=== PATIENT | female | born 1945 | race Caucasian/White ===

== ENCOUNTER 2019-07-23 08:53 | Observation (INO) | payer OTHER ==
[2019-07-23 09:43] LABS: Absolute Lymphocytes (CBC) 2.1 K/uL (0.7-4.9); Basophils % 0.6 % (0-1.3); Hematocrit 41.1 % (36.0-45.0); Lymphocytes % 34.1 % (15.3-44.8); MPV 7.6 fL (7.6-11.3)
--- NOTE | 2019-07-23 09:46 | RAD REPORT ---
EXAM DESCRIPTION: RAD - Hand Right 3 View - 07/23/2019 9:32 am CLINICAL HISTORY: Right hand pain FINDINGS: No fracture or dislocation is seen. Soft tissue swelling involves the second digit. Two small densities adjacent to the second DIP joint appear to be bony or calcific and likely are chr onic.
[2019-07-23] MEDS ORDERED: CEFAZOLIN/SWI 1gm 1 GM/10 ML SYR ONE (09:47)
[2019-07-23 09:48] LABS: Protime INR 0.92
--- NOTE | 2019-07-23 10:03 | EDPHYS ---
Physician Documentation [facility] Name: Sariah Castillo Age: 74 yrs Sex: Female : 1945 Arrival Date: 07/23/2019 Time: 08:55 Bed 7 Private MD: Loki Ivan ED Physician Akira Matthews HPI: 07/22 09:38 This 74 yrs old Female presents to ER via Ambulatory with complaints of jr8 Finger Swelling. 09:38 The complaints affect the DIP of right index finger and PIP of right index finger. jr8 Context: The problem was sustained at home. Onset: The symptoms/episode began/occurred suddenly, 2 day(s) ago. Modifying factors: The symptoms are alleviated by nothing, the symptoms are aggravated by movement. Associated signs and symptoms: The patient has no apparent associated signs or symptoms. Severity of symptoms: At their worst the symptoms were moderate, in the emergency department the symptoms are unchanged. The patient has not experienced similar symptoms in the past. The patient has not recently seen a physician. Patient stated that she was gardening. Noticed small red sore spot on finger as if something poked her but does not remember any thorns getting her. Stated that now it is very swollen. Tried to wait and saw PCP today. After seeing her called hand surgery and was told to come to ED for evaluation . Historical: - Allergies: 09:10 Aspirin; ss 10:13 medication given in general anesthesia made her vomit, needs to be premedicated; sv - PSHx: 10:13 cataract; vocal cords; sv - Immunization history:: Adult Immunizations up to date. - Social history:: Smoking status: Patient denies any tobacco usage or history of. ROS: 09:38 Eyes: Negative for injury, pain, redness, and discharge, ENT: Negative for injury, jr8 pain, and discharge, Neck: Negative for injury, pain, and swelling, Cardiovascular: Negative for chest pain, palpitations, and edema, Respiratory: Negative for shortness of breath, cough, wheezing, and pleuritic chest pain, Abdomen/GI: Negative for abdominal pain, nausea, vomiting, diarrhea, and constipation, Back: Negative for injury and pain, Skin: Negative for injury, rash, and discoloration, Neuro: Negative for headache, weakness, numbness, tingling, and seizure. 09:38 MS/extremity: Positive for decreased range of motion, erythema, pain, swelling, tenderness, of the right hand. Exam: 09:34 Eyes: Pupils equal round and reactive to light, extra-ocular motions intact. Lids and jr8 lashes normal. Conjunctiva and sclera are non-icteric and not injected. Cornea within normal limits. Periorbital areas with no swelling, redness, or edema. ENT: Nares patent. No nasal discharge, no septal abnormalities noted. Tympanic membranes are normal and external auditory canals are clear. Oropharynx with no redness, swelling, or masses, exudates, or evidence of obstruction, uvula midline. Mucous membranes moist. Neck: Trachea midline, no thyromegaly or masses palpated, and no cervical lymphadenopathy. Supple, full range of motion without nuchal rigidity, or vertebral point tenderness. No Meningismus. Cardiovascular: Regular rate and rhythm with a normal S1 and S2. No gallops, murmurs, or rubs. Normal PMI, no JVD. No pulse deficits. Respiratory: Lungs have equal breath sounds bilaterally, clear to auscultation and percussion. No rales, rhonchi or wheezes noted. No increased work of breathing, no retractions or nasal flaring. Abdomen/GI: Soft, non-tender, with normal bowel sounds. No distension or tympany. No guarding or rebound. No evidence of tenderness throughout. Back: No spinal tenderness. No costovertebral tenderness. Full range of motion. Skin: Warm, dry with normal turgor. Normal color with no rashes, no lesions, and no evidence of cellulitis. Neuro: Awake and alert, GCS 15, oriented to person, place, time, and situation. Cranial nerves II-XII grossly intact. Motor strength 5/5 in all extremities. Sensory grossly intact. Cerebellar exam normal. Normal gait. 09:34 ECG was reviewed by the Attending Physician. 09:34 Musculoskeletal/extremity: Extremities: grossly normal except: noted in the 2nd digit right hand: moderate swelling, redness, and pain from tip of finger to PIP, ROM: Decreased ROM to distal finger secondary to swelling, Circulation is intact in all extremities. Sensation intact. Patient has moderate pain with passive flexion of finger against resistance . Vital Signs: 09:04 BP 145 / 84; Pulse 59; Resp 17; Temp 97.3(TE); Pulse Ox 99% on R/A; Weight 67.59 kg; ss Height 5 ft. 1 in. (154.94 cm); Pain 6/10; 13:00 BP 147 / 50; Pulse 60; Resp 16; Pulse Ox 98% ; sv 14:10 BP 138 / 63; Pulse 62; Resp 18; Pulse Ox 99% ; sv 09:04 Body Mass Index 28.15 (67.59 kg, 154.94 cm) ss MDM: 09:05 Patient medically screened. jr8 09:36 Data reviewed: vital signs, nurses notes, lab test result(s), EKG, radiologic studies, jr8 plain films. Data interpreted: Pulse oximetry: on room air is 99 %. Interpretation: normal. Counseling: I had a detailed discussion with the patient and/or guardian regarding: the historical points, exam findings, and any diagnostic results supporting the discharge/admit diagnosis, lab results, radiology results, the need for further work-up and treatment in the hospital. ED course: Dr. Brownlee contacted and saw patient. Will bring patient to OR. 07/22 09:15 Order name: CBC with Diff; Complete Time: 09:56 jr8 07/22 09:15 Order name: Basic Metabolic Panel; Complete Time: 09:56 jr8 07/22 09:15 Order name: Protime (+inr); Complete Time: 09:57 jr8 07/22 09:15 Order name: Ptt, Activated; Complete Time: 09:57 jr8 07/22 11:00 Order name: CBC with Automated Diff EDMS 07/22 11:00 Order name: CBC with Automated Diff EDMS 07/22 09:14 Order name: XRAY Hand RIGHT 3 View; Complete Time: 11:03 jr8 07/22 09:15 Order name: EKG; Complete Time: 09:15 jr8 07/22 09:15 Order name: EKG - Nurse/Tech; Complete Time: 09:47 jr8 07/22 11:00 Order name: CONS Pharmacy Consult EDMS 07/22 11:00 Order name: Consistent Carb (ADA) 1800 Shivam EDMS 07/22 11:00 Order name: Comprehensive Metabolic Panel EDMS 07/22 11:00 Order name: Comprehensive Metabolic Panel EDMS EC:34 Rate is 82 beats/min. Rhythm is regular, Normal Sinus Rhythm. QRS [place] is Normal. [place] jr8 interval is normal at 178 msec. QRS interval is normal at 82 msec. QT interval is normal at 434 msec. No Q waves. T waves are Normal. No ST changes noted. Clinical impression: Normal ECG and No evidence of ischemia. Interpreted by me. Reviewed by me. Administered Medications: 09:54 Drug: Ancef 1 grams Route: IVPB; Site: left antecubital; sv 09:59 Follow up: Response: No adverse reaction; IV Status: Completed infusion; IV Intake: 10mlsv Disposition: 17:01 Co-signature as Attending Physician, Akira Matthews MD. rn Disposition: 07/23/19 10:02 Hospitalization ordered by Trista Carpenter for Inpatient Admission. Preliminary diagnosis is Other synovitis and tenosynovitis, right hand. - Bed requested for Telemetry/MedSurg (Inpatient). - Status is Inpatient Admission. sv - Condition is Stable. - Problem is new. - Symptoms have improved. Signatures: Dispatcher [employer] Deisy Harmon RN RN sv Nieto, Roman, MD MD rn Smirch, Shelby, RN RN ss Roszak, Josh, PA PA jr8 Corrections: (The following items were deleted from the chart) 14:27 10:02 Hospitalization Ordered by Trista Carpenter MD for Inpatient Admission. Preliminary sv diagnosis is Other synovitis and tenosynovitis, right hand. Bed requested for Telemetry/MedSurg (Inpatient). Status is Inpatient Admission. Condition is Stable. Problem is new. Symptoms have improved. jr8
--- NOTE | 2019-07-23 10:03 | ER ---
Nurse's Notes [facility] Name: Sariah Castillo Age: 74 yrs Sex: Female : 1945 Arrival Date: 07/23/2019 Time: 08:55 Bed 7 Private MD: Loki Ivan Diagnosis: Other synovitis and tenosynovitis, right hand Presentation: 07/22 09:04 Chief complaint: Patient states: redness and swelling to R index finger x 1 week. Pt ss was seen by Dr. Ivan yesterday and told to go to [place] in the morning, but called her last night and said to come to the ER in the morning and have the ED staff call Dr. Brownlee. Coronavirus screen: The patient has NOT traveled to a country currently being monitored by the CDC within the last 14 days. Proceed with normal triage procedures. Ebola Screen: Patient denies exposure to infectious person. Patient denies travel to an Ebola-affected area in the 21 days before illness onset. Initial Sepsis Screen: Does the patient meet any 2 criteria? No. Patient's initial sepsis screen is negative. Does the patient have a suspected source of infection? No. Patient's initial sepsis screen is negative. Risk Assessment: Do you want to hurt yourself or someone else? Patient reports no desire to harm self or others. 09:04 Method Of Arrival: Ambulatory ss 09:04 Acuity: JAVIER 3 ss 09:21 Onset of symptoms was July 2019. sv Historical: - Allergies: 09:10 Aspirin; ss 10:13 medication given in general anesthesia made her vomit, needs to be premedicated; sv - PSHx: 10:13 cataract; vocal cords; sv - Immunization history:: Adult Immunizations up to date. - Social history:: Smoking status: Patient denies any tobacco usage or history of. Screenin:20 Abuse screen: Denies threats or abuse. Denies injuries from another. Nutritional sv screening: No deficits noted. Tuberculosis screening: No symptoms or risk factors identified. Fall Risk None identified. Assessment: 09:20 Reassessment: Xray at the bedside. sv 09:30 General: Appears in no apparent distress. comfortable, well developed, Behavior is sv calm, cooperative, appropriate for age. Pain: Complains of pain in right index finger Pain currently is 6 out of 10 on a pain scale. Quality of pain is described as pressure, tender, throbbing, Pain began about a week ago Is continuous, Current management is with abx prescribed by Dr Ivan. Neuro: Level of Consciousness is awake, alert, obeys commands, Oriented to person, place, time, situation, Moves all extremities. Gait is steady. Respiratory: Airway is patent Respiratory effort is even, unlabored, Respiratory pattern is regular, symmetrical. Derm: Skin is pink, warm \T\ dry. Musculoskeletal: Range of motion: limited in DIP of right index finger and PIP of right index finger Swelling present in dorsal aspect of distal phalanx of right index finger, dorsal aspect of middle phalanx of right index finger, palmar aspect of distal phalanx of right index finger and palmar aspect of middle phalanx of right index finger. 10:10 Reassessment: Dr Carpenter at the bedside. sv 10:33 Reassessment: Patient appears in no apparent distress at this time. No changes from sv previously documented assessment. Patient and/or family updated on plan of care and expected duration. Pain level reassessed. Patient is alert, oriented x 3, equal unlabored respirations, skin warm/dry/pink. 11:31 Reassessment: Patient appears in no apparent distress at this time. No changes from sv previously documented assessment. Patient and/or family updated on plan of care and expected duration. Pain level reassessed. Patient is alert, oriented x 3, equal unlabored respirations, skin warm/dry/pink. 13:00 Reassessment: Patient appears in no apparent distress at this time. No changes from sv previously documented assessment. Patient and/or family updated on plan of care and expected duration. Pain level reassessed. Patient is alert, oriented x 3, equal unlabored respirations, skin warm/dry/pink. 14:20 Reassessment: Patient appears in no apparent distress at this time. No changes from sv previously documented assessment. Patient and/or family updated on plan of care and expected duration. Pain level reassessed. Patient is alert, oriented x 3, equal unlabored respirations, skin warm/dry/pink. Vital Signs: 09:04 BP 145 / 84; Pulse 59; Resp 17; Temp 97.3(TE); Pulse Ox 99% on R/A; Weight 67.59 kg; ss Height 5 ft. 1 in. (154.94 cm); Pain 6/10; 13:00 BP 147 / 50; Pulse 60; Resp 16; Pulse Ox 98% ; sv 14:10 BP 138 / 63; Pulse 62; Resp 18; Pulse Ox 99% ; sv 09:04 Body Mass Index 28.15 (67.59 kg, 154.94 cm) ED Course: 08:55 Patient arrived in ED. rg4 08:55 Loki Ivan MD is Private Physician. rg4 08:57 Layo Roy PA is PHCP. jr8 08:57 Akira Matthews MD is Attending Physician. jr8 09:08 Triage completed. ss 09:10 Arm band placed on right wrist. ss 09:19 Deisy Burks, SEMAJ is Primary Nurse. sv 09:20 Patient has correct armband on for positive identification. Bed in low position. Call sv light in reach. NIBP on. 09:25 Initial lab(s) drawn, by me, sent to lab. jb1 09:33 XRAY Hand RIGHT 3 View In Process Unspecified. EDMS 09:40 EKG done, by holter technician. reviewed by Layo HAMMOND. at1 09:46 Inserted saline lock: 22 gauge in left antecubital area, using aseptic technique. Blood jb1 collected. 09:59 Trista Carpenter MD is Hospitalizing Provider. jr8 11:31 Awaiting bed assignment. sv 14:20 No provider procedures requiring assistance completed. Patient admitted, IV remains in sv place. intact. Administered Medications: 09:54 Drug: Ancef 1 grams Route: IVPB; Site: left antecubital; sv 09:59 Follow up: Response: No adverse reaction; IV Status: Completed infusion; IV Intake: 10mlsv Intake: 09:59 IV: 10ml; Total: 10ml. sv Outcome: 10:02 Decision to Hospitalize by Provider. jr8 14:20 Admitted to OR accompanied by nurse, via wheelchair, with chart. sv 14:20 Condition: stable 14:20 Instructed on the need for admit. 14:27 Patient left the ED. sv Signatures: Dispatcher [employer] EDMS Isael Goldman jb1 Deisy Burks RN RN Dionna Thao RN RN Layo Roy PA PA jr8 Kaila Mays, marketing systems analyst EKG Tat1 Noemí Sloan rg4
[2019-07-23] MEDS ORDERED: ACETAMINOPHEN 500 MG TAB PO PRN (10:45)
[2019-07-23] MEDS ORDERED: ONDANSETRON 4 MG/2 ML VIAL IV PRN ×2 (10:45→16:32)
[2019-07-23] MEDS ORDERED: NA CHLORIDE 0.9% 1,000 ML IV SCH (11:00)
[2019-07-23] MEDS: INSULIN -REGULAR HUMAN 50 UNIT/0.5 ML ML SQ SCH ×3 (11:30→20:35)
--- NOTE | 2019-07-23 12:12 | EKG ---
Test Date: 2019-07-23 Test Time: 09:33:06 Business Partner: JOLYNN MEASUREMENT RESULTS: Intervals: Rate: 82 [place]: 178 QRSD: 82 QT: 372 QTc: 434 [place]: P: 76 [place]: 178 QRS: 69 T: 65 INTERPRETIVE STATEMENTS: Normal sinus rhythm Normal ECG Compared to ECG 08/13/1996 13:43:00 No significant changes Electronically Signed On 07-23-19 12:11:25 CDT by Damon Gore
[2019-07-23] MEDS ORDERED: NA CHLORIDE 0.9% 1,000 ML ONE (14:03)
[2019-07-23] MEDS ORDERED: propofoL 200 MG/20 ML VIAL IV ONE (14:36)
[2019-07-23] MEDS ORDERED: FENTANYL CITR 100 MCG/2 ML ONE (14:36)
[2019-07-23] MEDS ORDERED: LIDOCAINE 1% MPF 5 ML VIAL ONE (14:37)
[2019-07-23] MEDS ORDERED: dexAMETHasone 4 MG/ML VIAL ONE (14:37)
[2019-07-23] MEDS ORDERED: ONDANSETRON 4 MG/2 ML VIAL ONE (14:38)
[2019-07-23] MEDS: VANCOMYCIN 1.25 GM in NA CHLORIDE 0.9% 250 ML IVPB SCH (15:21)
[2019-07-23] MEDS ORDERED: MEPERIDINE HCL 50 MG/ML IM PRN (15:28)
[2019-07-23] MEDS ORDERED: CODEINE 30MG/APAP 300MG TAB PO PRN (15:28)
[2019-07-23] MEDS: HYDROMORPHONE HCL 1 MG/ML INJ ONE ×2 (15:31→15:36)
[2019-07-23] MEDS ORDERED: HYDROMORPHONE HCL 1 MG/ML INJ ONE (15:46)
[2019-07-23 17:06] VITALS: BMI 28.1
[2019-07-23] MEDS: PROMETHAZINE INJ 25 MG/ML AMP IV PRN ×2 (18:36→22:20)
[2019-07-23] MEDS: MORPHINE 2 MG/ML SYR IV PRN (20:22)
[2019-07-23] MEDS ORDERED: ATORVASTATIN 10 MG TAB PO SCH (20:30)
[2019-07-23] MEDS: carvediloL 25 MG TAB PO SCH (20:34)
[2019-07-23] MEDS: METFORMIN ER 500 MG TAB PO SCH (20:34)
[2019-07-23] MEDS: FAMOTIDINE 20 MG TAB PO SCH (20:35)
--- NOTE | 2019-07-23 21:52 | HP ---
Date of Admission: 07/23/2019 Presenting Complaint: Right face finger pain. History Of Present Illness: Ms. Jonathan Rolle is a 74-year-old female with past medical history of hypertension, diabetes mellitus, osteoporosis, who developed pain and swelling over the r ight second digit since the last 3 days. She is unsure if she has a bite, but she did notice a full course of redness. The pain and swelling continued to worsen. She was seen by primary care braden mayo yesterday, given a shot of antibiotics as well as started on amoxicillin. She took 1 dose last nig ht. She presented to the ED today because of persistent symptoms. She denies any nausea or vomiting . She denies any fever or chills. In the ED, she was evaluated by the hand surgeon, Dr. Aung tripp d been diagnosed with presumed tenosynovitis and schedule for OR debridement. She has been admitted for possible IV antibiotics. Past Medical History: Significant for 1.Hypertension. 2.Diabetes mellitus. 3.Osteoporosis. 4.Hypothyroidism. 5.Hyperlipidemia. 6.History of spasmodic dysphonia, but she was ruled out for Parkinson disease. Past Surgical History: Unknown. Social History: Patient resides in a community with full function at baseline. No history of tobacc o, alcohol, or illicit drug use. Family History: Noncontributory in this elderly female. Home Medications: Reviewed include Coreg 25 b.i.d., pravastatin 80 daily, metformin 500 b.i.d., Synt hroid 50 mcg daily as well as multiple xbqn-zow-wzopfst medications. Review of Systems: All systems reviewed x14 were negative except as mentioned above. Allergies: SHE DEVELOPED GASTRIC UPSET WITH ASPIRIN. Physical Examination: Current vitals: Blood pressure of 126/84, respiratory rate of 17, O2 saturation 99 on room air, temp erature 97.3, pulse rate of 59. General: Middle-aged female, slightly overweight, but calm, not in any distress, low speech voice. HEENT: Head is atraumatic, normocephalic. Pupils equal, reactive to light. Neck: No JVD. No carotid bruit. Respiratory: Good air entry. No crepitation. Cardiovascular: S1, S2. Rate and rhythm regular. No murmur. GI: Abdomen full, soft, nontender. Bowel sounds positive. Rectal: Deferred. Extremities: No pedal edema. No calf tenderness. Examination of the hands shows erythema over the palmar surface of the second digit extending from the second interphalangeal joint to the pulp. Smal l area of focus in the base of the first interphalangeal joint. No nail abrasion or nail involvement noted. The patient is able to flex, but limited range of motion of the interphalangeal joint due to pain and swelling. No other involvement of any of the other digits. Neuro: Patient is alert, oriented. Cranial nerves 2 through 12 grossly intact. Laboratory Data: WBC 6.1, neutrophils 48%, hemoglobin 13, platelets 254. INR 0.9, PTT is 30. Sodiu m 142, potassium 4, bicarb 26, BUN 70, creatinine 0.8, glucose 153, calcium 8.9. X-ray of the hand s hows soft tissue swelling of the second digit of the right, but no bone involvement. Impression: 1.Right second digit distal cellulitis, rule out tenosynovitis. 2.Diabetes mellitus. 3.Hypertension, stable. Plan: 1.We will admit patient to observation. Follow plan for OR debridement by Hand Surgery today. We w ill do empirical antibiotics with Vanco, but we will discuss with hand surgeon about possibility of s witching to p.o. antibiotics and given no systemic involvement of the infection. We will resume dennis ent on insulin sliding scale as well as home dose of metformin. We will resume patient on Coreg and losartan for blood pressure control. Continue gentle IV fluid hydration with normal saline. DVT pro phylaxis with Lovenox. Presume hospital stay for less than 24-48 hours. Advanced directives, patient is full code. Total time spent in review of record, discussion, patient, and evaluation greater than 60 minutes. EO/MODL Voice ID: [id number]
[2019-07-23] MEDS ORDERED: GUAIFENESIN 600 MG SA TAB PO SCH (22:00)
--- NOTE | 2019-07-24 01:55 | OP ---
Surgeon: Hebert Brownlee MD Analytical Research Program Manager: Davon. Preoperative Diagnosis: Infected right index finger. Postoperative Diagnosis: Infected right index finger. Procedure Performed: Excision and drainage of right index finger. Anesthesia: General. Procedure In Detail: After satisfactory induction of general, the hand was prepped with Betadine scr ub, Betadine paint, dry sterile drapes applied in the usual manner. The arm was elevated, exsanguina malinda with an Esmarch. Tourniquet was inflated to 250 mmHg. Hand was placed on [place] table where th e incision was made over the volar aspect of the right index finger. Excision was proceeded down. F luid was encountered. Culture was taken for aerobes and anaerobes. Tendon sheath was not involved. The wound was irrigated and then tourniquet was released. Electrocautery was used for hemostasis. Packed with Betadine soaked quarter-inch Nu Gauze and 2 inch Nazario. Patient tolerated the procedure well and returned to Recovery. CARIDAD/CIERA Voice ID: [id number] Report ID: [id number]
[2019-07-24] MEDS ORDERED: ALENDRONATE 70 MG TAB PO SCH ×2 (06:00→09:00)
[2019-07-24] MEDS ORDERED: LEVOTHYROXINE SOD 0.05 MG TABLET PO SCH ×2 (06:00→09:00)
[2019-07-24 06:14] LABS: Absolute Lymphocytes (CBC) 1.7 K/uL (0.7-4.9); Basophils % 0.2 % (0-1.3); Hematocrit 39.8 % (36.0-45.0); Lymphocytes % 14.7 % (15.3-44.8); MPV 7.5 fL (7.6-11.3); RBC Red Blood Cell Count 4.34 M/uL (3.86-4.86)
[2019-07-24] MEDS: MORPHINE 2 MG/ML SYR IV PRN (06:16)
[2019-07-24 06:45] LABS: Albumin 3.6 g/dL (3.4-5.0); Bilirubin Total 0.6 mg/dL (0.2-1.0); Potassium 4.5 mmol/L (3.5-5.1); Protein, Total 7.1 g/dL (6.4-8.2)
[2019-07-24] MEDS: INSULIN -REGULAR HUMAN 50 UNIT/0.5 ML ML SQ SCH ×2 (07:30→11:30)
[2019-07-24] MEDS ORDERED: VITAMIN D 1000 UNIT TAB PO SCH (09:00)
[2019-07-24] MEDS: METFORMIN ER 500 MG TAB PO SCH (09:00)
[2019-07-24] MEDS ORDERED: carvediloL 25 MG TAB PO SCH (09:00)
[2019-07-24] MEDS ORDERED: LORATADINE 10 MG TAB PO SCH (09:00)
[2019-07-24] MEDS ORDERED: ENOXAPARIN 40 MG/0.4 ML SQ SCH (09:00)
[2019-07-24] MEDS: FAMOTIDINE 20 MG TAB PO SCH (09:00)
[2019-07-24] MEDS ORDERED: DOCOSAHEXANOIC AC/EPA 1000 MG PO SCH (09:00)
[2019-07-24] MEDS ORDERED: METFORMIN ER 500 MG TAB PO SCH (09:00)
[2019-07-24] MEDS ORDERED: AMLODIPINE 2.5 MG TAB PO SCH (09:00)
[2019-07-24] MEDS ORDERED: DESIPRAMINE HCL 10 MG PO SCH (09:00)
[2019-07-24] MEDS: carvediloL 25 MG TAB PO SCH (09:00)
[2019-07-24 09:13] LABS: Blood Morphology Comment NOT SEEN (NOT SEEN); Platelet Estimate ADEQ; White Blood Cell Scan OK
[2019-07-24 09:14] VITALS: BP 125/58; TEMP 98.3
--- NOTE | 2019-07-24 11:23 | P.PN ---
Subjective Date of Service: 07/24/19 Subjective: No new changes, Tolerating diet (right finger pain much improved post surgery) Physical Examination - Vital Signs Temperature: 98.3 F Blood Pressure: 125/58 Pulse: 89 Respirations: 18 Pulse Ox (%): 94 - Physical Exam General: Alert, In no apparent distress, Oriented x3 HEENT: Atraumatic, Normocephalic Neck: Supple, 2+ carotid pulse no bruit, JVD not distended Respiratory: Clear to auscultation bilaterally Cardiovascular: No edema, Normal pulses, Regular rate/rhythm, Normal S1 S2 Gastrointestinal: Normal bowel sounds, Soft and benign, Non-distended Musculoskeletal: No clubbing, No swelling Integumentary: Skin breakdown (over surgical right second digit) Neurological: Normal gait, Normal speech, Normal strength at 5/5 x4 extr Assessment & Plan Physician Review: Patient Assessed, Agree with Above Assessment and Plan Physician Review Additional Text: 1 Right second digit /Index finger cellulitis - s/p incision and drainage -c/w IV abx -will defer abx regime to hand surgery 2 DM -controlled, c/w ISSS 3 HTN -controlled Dispo-discharge over when cleared by surgery
[2019-07-24] MEDS: VANCOMYCIN 1.25 GM in NA CHLORIDE 0.9% 250 ML IVPB SCH (12:42)
--- NOTE | 2019-07-24 14:13 | P.DS ---
Admission Date: 07/23/19 Discharge Date: 07/24/19 Disposition: ROUTINE DISCHARGE Discharge Condition: GOOD Brief History of Present Illness: Patient admitted for right index finger swelling and pain with redness. She is unsure if she had any insect bite Hospital Course: On admission she was evaluated by the hand surgeon and is taking to the OR with debridement of the area. No tendon involvement was noted. After debridement wound was open with and dressed with dry to wet dressing. She was continued on IV antibiotics per switched to p.o. her discharge now. She will follow with Dr. Jovani curry in 1 week Vital Signs/Physical Exam: Temp Pulse Resp BP Pulse Ox 98.3 F 89 18 125/58 L 94 07/24/19 11:23 07/24/19 11:23 07/24/19 11:23 07/24/19 11:23 07/24/19 11:23 General: In no apparent distress, Oriented x3 HEENT: Atraumatic, PERRLA Neck: 2+ carotid pulse no bruit, JVD not distended Respiratory: Clear to auscultation bilaterally, Normal air movement Cardiovascular: Normal pulses, Regular rate/rhythm, Normal S1 S2 Gastrointestinal: Normal bowel sounds, Soft and benign, Non-distended Musculoskeletal: Other Neurological: Normal speech, Normal strength at 5/5 x4 extr Laboratory Data at Discharge: WBC 11.4 K/uL (4.3-10.9) H D 07/24/19 05:43 Hgb 13.3 g/dL (12.0-15.0) 07/24/19 05:43 Hct 39.8 % (36.0-45.0) 07/24/19 05:43 Plt Count 271 K/uL (152-406) 07/24/19 05:43 PT 10.9 SECONDS (9.5-12.5) 07/23/19 09:25 INR 0.92 07/23/19 09:25 APTT 30.3 SECONDS (24.3-36.9) 07/23/19 09:25 Sodium 141 mmol/L (136-145) 07/24/19 05:43 Potassium 4.5 mmol/L (3.5-5.1) 07/24/19 05:43 BUN 13 mg/dL (7-18) 07/24/19 05:43 Creatinine 0.88 mg/dL (0.55-1.3) 07/24/19 05:43 Glucose 163 mg/dL (74-106) H 07/24/19 05:43 Total Bilirubin 0.6 mg/dL (0.2-1.0) 07/24/19 05:43 AST 16 U/L (15-37) 07/24/19 05:43 ALT 23 U/L (12-78) 07/24/19 05:43 Alkaline Phosphatase 40 U/L (45-117) L 07/24/19 05:43 Home Medications: Amlodipine Besylate [Norvasc] 2.5 mg PO DAILY 07/23/19 Azelastine [Astelin 137MCG/Metered [place]*] 30 mg PO PRN 07/23/19 Carvedilol [Coreg] 25 mg PO BID 07/23/19 Cholecalciferol (Vitamin D3) [Vitamin D 1000 Iu Tab*] 100 unit PO DAILY Desipramine HCl 10 mg PO DAILY 07/23/19 Fish Oil/Dha/Epa [Fish Oil 1,200 mg Fish Oil] 1,200 mg PO BID 07/23/19 Guaifenesin [Mucinex] 600 mg PO PRN 07/23/19 Levothyroxine [Synthroid*] 50 mcg PO DAILY 07/23/19 Loratadine [Claritin*] 10 mg PO BID 07/23/19 Metformin ER [Glucophage ER*] 500 mg PO BID 07/23/19 Pravastatin Sodium 80 mg PO DAILY 07/23/19 guaiFENesin [Robitussin 100MG/5ML*] 5 ml PO PRN 07/23/19 Alendronate Sodium [Fosamax] 70 mg PO Q7D 07/24/19 Codeine/APAP [Tylenol #3*] 1 tab PO Q4HP PRN tab 07/24/19 Smz./Tmp. [Bactrim Ds 800 MG/160 MG] 1 tab PO BID #14 tab 07/24/19 New Medications: Smz./Tmp. [Bactrim Ds 800 MG/160 MG] 1 tab PO BID #14 tab Time spent managing pt's care (in minutes): 35
[2019-07-24] MEDS ORDERED: AZELASTINE NAS PRN (14:30)
[2019-07-24 16:25] VITALS: O2SAT 96
[2019-07-24] MEDS ORDERED: ATORVASTATIN 10 MG TAB PO SCH (21:00)
--- NOTE | 2019-07-25 02:30 | DS ---
Date of Discharge: 07/24/2019 History: The patient is a 74-year-old white female, right-hand dominant, punctured her right index finger tip approximately 1 week prior to presentation. Saw her physician and then presented to the emergency room at my request. At that time, the finger was markedly swollen over the pulp effect. Her tetanus toxoid was recent. She gave a history of working in garden and sustained a puncture wound. History is remarkable for speech disorder. She was taken to surgery, underwent incision and drainage of the volar aspect of the right ring finger tip. Then, discharged home on Betadine wound changes q.12 hours and Tylenol No. 3 one tablet p.o. q.4 hours p.r.n. pain, Bactrim DS 1 tab p.o. q.12 hours. She will return to the office following Monday at 9 o' clock at the [facility]. Condition On Discharge: Good. CARIDAD/CIERA Voice ID: [id number] Report ID: [id number] JERO
== END 2019-07-24 15:01 | disposition home or self-care (01) ==
LOC: ER 08:53 → ERHOLD 10:46 → 2ND 15:45
PROVIDERS: ADMIT Internal Medicine; ATTEND Internal Medicine
PROC: 0H9FXZX Drainage of Right Hand Skin, External Approach, Diagnostic (ICD-10-PCS; principal; 2019-07-23 15:00)
DX: L03.011 Cellulitis of right finger (principal); E11.9 Type 2 diabetes mellitus without complications; I10 Essential (primary) hypertension; M81.0 Age-related osteoporosis without current pathological fracture; E03.9 Hypothyroidism, unspecified; E78.5 Hyperlipidemia, unspecified; Z79.84 Long term (current) use of oral hypoglycemic drugs; Z79.899 Other long term (current) drug therapy
CPT/HCPCS: 93005; 87070; 85025 ×2; 80048; 36415; 87205 ×2; 85610; 82947 ×5; 88304; 85730; 87075; 80053; 73130; 96374; 99285; 10140; J2704; J2550 ×2; J3010; J2270 ×2; J1170 ×2; J0690; J7030 ×2; J2405 ×2; G0378 ×3; J1650

== ENCOUNTER 2019-07-30 07:58 | Day surgery (SDC) | payer OTHER ==
[2019-07-30] MEDS ORDERED: MIDAZOLAM HCL 2 MG/2 ML INJ ONE (08:20)
[2019-07-30] MEDS ORDERED: FENTANYL CITR 100 MCG/2 ML ONE (08:20)
[2019-07-30] MEDS ORDERED: propofoL 200 MG/20 ML VIAL IV ONE (08:20)
[2019-07-30] MEDS ORDERED: KETOROLAC 30 MG/ML INJ ONE (08:21)
[2019-07-30] MEDS ORDERED: LIDOCAINE 2% MPF 5 ML VIAL ONE (08:21)
[2019-07-30] MEDS ORDERED: CEFAZOLIN/SWI 1gm 1 GM/10 ML SYR ONE (08:34)
[2019-07-30] MEDS ORDERED: SCOPOLAMINE HYDROBROMIDE PATCH TD ONE ×2 (08:34→08:40)
[2019-07-30] MEDS ORDERED: NA CHLORIDE 0.9% 1,000 ML ONE (08:34)
[2019-07-30] MEDS ORDERED: BUPIVACAINE 0.5% PF 10 ML VIAL ONE (08:50)
[2019-07-30 12:00] VITALS: BP 107/73; TEMP 97.6; O2SAT 94
--- NOTE | 2019-07-31 07:57 | OP ---
Surgeon: Hebert Brownlee MD Preoperative Diagnosis: Open wound of the right index finger. Postoperative Diagnosis: Open wound of the right index finger. Procedure Performed: Debridement of skin and subcutaneous tissue with flap closure. The right hand prepped with Betadine scrub, Betadine paint, dry sterile drapes applied in the usual manner. Hand placed on a [place] table. Tenotomy scissors and forceps were used to debride the skin and subcutaneous tissue as needed. The wound was jet lavaged, irrigated, and curetted and then the wound flap was advanced from radial to ulnar, was done with horizontal mattress, 4-0 Prolene. Dressed with Xeroform, 2-inch Nazario. The patient tolerated the procedure well and returned to Recovery. CARIDAD/CIERA Voice ID: [id number] Report ID: [id number] MTDD
== END 2019-07-30 10:45 | disposition home or self-care (01) ==
LOC: OR 07:58
PROVIDERS: ATTEND Specialist
PROC: 0JXJ0ZZ Transfer Right Hand Subcutaneous Tissue and Fascia, Open Approach (ICD-10-PCS; principal; 2019-07-30 09:00)
DX: S61.200A Unspecified open wound of right index finger without damage to nail, initial encounter (principal); X58.XXXA Exposure to other specified factors, initial encounter; L03.011 Cellulitis of right finger; L85.9 Epidermal thickening, unspecified; Z79.899 Other long term (current) drug therapy
CPT/HCPCS: 82947; 88304; 14040; J2704; J2250; J3010; J0690; J7030

== ENCOUNTER 2020-12-29 15:49 | Emergency (ER) | payer OTHER ==
--- OUTSIDE RECORDS SUMMARY | 2020-12-29 15:52 | XMS REPORT | Continuity of Care Document ---
:1945 Author Organization [facility] t Address [address] [place] [address] [address] [place] [address] Care Team Providers Name Role Phone LAB90 Attending Clinician Unavailable KADY YUSUF Attending Clinician Unavailable Payers Payer Name Policy Type Policy Number Effective Date Expiration Date Shirley burk [employer] - HMO 7 [id number] 2020 00:00:00 2020 R2T Problems This patient has no known problems. Allergies, Adverse Reactions, Alerts This patient has no known allergies or adverse reactions. Medications This patient has no known medications. Procedures This patient has no known procedures. Encounters Start End Encounter Admission Attending Care Care Encounter Source Date/Time Date/Time Type Type Clinicians Facility Department ID 2020-12-14 2020-12-14 Outpatient LAB90 MABEL MONROE [id number] Mabel 10:15:00 10:15:00 Seybol d 2020-12-14 2020-12-14 Outpatient MABEL YUSUF [id number] Mabel 09:15:00 09:15:00 ELISSA Seybol d 2020-12-11 2020-12-11 Outpatient MABEL YUSUF [id number] Mabel 10:30:00 10:30:00 ELISSA Seybol d 2020-12-09 2020-12-09 Outpatient LAB90 MABEL MONROE [id number] Mabel 11:55:00 11:55:00 Seybol d Results This patient has no known results.
[2020-12-29 17:25] LABS: Urine Blood 3+ (Negative); Urine Glucose Negative (Negative); Urine Protein 1+ (Negative); Urine Specific Gravity >=1.030 (1.005-1.030); Urine pH 7.5 (5.0-7.0)
[2020-12-29 17:27] LABS: Absolute Lymphocytes (CBC) 2.4 K/uL (0.7-4.9); Basophils % 0.5 % (0-1.3); Hematocrit 40.8 % (36.0-45.0); Lymphocytes % 21.9 % (15.3-44.8); MPV 6.8 fL (7.6-11.3); RBC Red Blood Cell Count 4.44 M/uL (3.86-4.86)
--- NOTE | 2020-12-29 17:39 | RAD REPORT ---
EXAM DESCRIPTION: CT - Stone Protocol - 12/29/2020 5:30 pm CLINICAL HISTORY: Abdominal pain. FLANK PAIN COMPARISON: Abdomen Pelvis W/Wo Contrast dated 10/26/2015 TECHNIQUE: CT imaging of the abdomen and pelvis was performed without contrast. Solid organ, bowel a nd vascular assessment is limited due to lack of IV and oral contrast. All CT scans are performed using dose optimization technique as appropriate and may include automated exposure control or mA/KV adjustment according to patient size. FINDINGS: The lower lung navarro are clear. Mild to moderate right-sided hydronephrosis secondary to a 6 millimeter stone in the right proximal u reter. The liver is unremarkable. Gallbladder is unremarkable. The spleen and pancreas are within nor mal limits. No bowel obstruction is identified. Normal appendix. Scattered colonic diverticula. Ather osclerosis. No adrenal lesions per The osseous structures are within normal limits. IMPRESSION: Mild to moderate right-side hydronephrosis secondary to a 6 millimeter stone in the righ t proximal ureter. A limited non-contrast examination was performed as detailed.
[2020-12-29 17:43] LABS: Potassium 4.5 mmol/L (3.5-5.1)
[2020-12-29 17:55] LABS: Urine Amorphous Sediment 2+ /HPF (NONE SEEN); Urine Bacteria <20 /HPF (<20); Urine RBC TNTC /HPF (NONE SEEN)
[2020-12-29] MEDS ORDERED: ONDANSETRON 4 MG/2 ML VIAL ONE (19:47)
[2020-12-29] MEDS ORDERED: NA CHLORIDE 0.9% 1,000 ML ONE (19:47)
[2020-12-29] MEDS ORDERED: TAMSULOSIN 0.4 MG SR CAP ONE (19:47)
[2020-12-29] MEDS ORDERED: MAGNESIUM SULFATE 1 gm IVPB 1 GM/100 ML BAG IV ONE (19:47)
[2020-12-29] MEDS ORDERED: MORPHINE 4 MG/ML SYR ONE (19:47)
--- NOTE | 2020-12-29 21:18 | EDPHYS ---
Physician Documentation [facility] Name: Sariah Castillo Age: 75 yrs Sex: Female : 1945 Arrival Date: 12/29/2020 Time: 15:55 Bed DIS8 Private MD: ED Physician Kenisha Fay HPI: 12/29 22:16 This 75 yrs old Female presents to ER via Ambulatory with complaints of kb Possible Kidney Stone. 22:16 The patient complains of pain in the right flank. The pain does not radiate. Onset: The kb symptoms/episode began/occurred today, at 14:00. Modifying factors: The symptoms are alleviated by nothing. the symptoms are aggravated by nothing. Associated signs and symptoms: Pertinent positives: hematuria, Pertinent negatives: diarrhea, dizziness, dysuria, fever, urinary frequency, headache, nausea, pain radiating to the lower extremities, vomiting. Severity of pain: At its worst the pain was moderate in the emergency department the pain is unchanged. The patient has experienced a previous episode, approximately 20 years ago. The patient has not recently seen a physician. Pt reports hematuria and right flank pain that started at 1400. States it feels like a kidney stone she has had in the past. Historical: - Allergies: 17:07 Aspirin; jl7 17:07 medication given in general anesthesia made her vomit, needs to be premedicated; jl7 - PMHx: 17:07 High Cholesterol; Spasmodic Dysphonia; jl7 17:09 Hypertensive disorder; Diabetes mellitus; jl7 - Immunization history:: Client reports receiving the 2nd dose of the Covid vaccine, Pfizer. - Social history:: Smoking status: Patient denies any tobacco usage or history of. ROS: 22:15 Constitutional: Negative for fever, chills, and weight loss. kb 22:15 : Positive for flank pain, hematuria, of the right flank. 22:15 All other systems are negative. 22:15 Abdomen/GI: Positive for nausea and vomiting, Negative for abdominal pain. kb Exam: 22:15 Constitutional: This is a well developed, well nourished patient who is awake, alert, kb and in no acute distress. Head/Face: Normocephalic, atraumatic. ENT: Moist Mucous membranes Respiratory: Respirations even and unlabored. No increased work of breathing, no retractions or nasal flaring. Skin: Warm, dry with normal turgor. Normal color. MS/ Extremity: Pulses equal, no cyanosis. Neurovascular intact. Full, normal range of motion. Neuro: Awake and alert, GCS 15, oriented to person, place, time, and situation. Moves all extremities. Normal gait. Psych: Awake, alert, with orientation to person, place and time. Behavior, mood, and affect are within normal limits. 22:15 Back: CVA tenderness, that is moderate, is noted on the right. Vital Signs: 17:05 BP 188 / 82; Pulse 57; Resp 16; Temp 98.4; Pulse Ox 100% ; Weight 65.77 kg; Pain 10/10; jl7 20:21 BP 138 / 71; Pulse 69; Resp 18; Pulse Ox 96% on R/A; Pain 7/10; ld1 MDM: 19:21 Patient medically screened. kb 22:02 Data reviewed: vital signs, nurses notes. Data interpreted: Pulse oximetry: on room air kb is 96 %. Interpretation: normal. Counseling: I had a detailed discussion with the patient and/or guardian regarding: the historical points, exam findings, and any diagnostic results supporting the discharge/admit diagnosis, lab results, radiology results, the need for outpatient follow up, a family practitioner, a urologist, to return to the emergency department if symptoms worsen or persist or if there are any questions or concerns that arise at home. 22:18 ED course: Pain controlled prior to discharge. kb 12/29 17:09 Order name: Basic Metabolic Panel; Complete Time: 18:16 kb 12/29 17:09 Order name: CBC with Diff; Complete Time: 18:16 kb 12/29 17:09 Order name: CT Stone Protocol; Complete Time: 18:16 kb 12/29 17:09 Order name: Urine Microscopic Only; Complete Time: 18:16 kb 12/29 17:25 Order name: Urine Dipstick-Ancillary; Complete Time: 18:16 EDMS 12/29 17:09 Order name: IV Saline Lock; Complete Time: 17:11 kb 17 17:09 Order name: Labs collected and sent; Complete Time: 17:11 kb 17 17:09 Order name: Urine Dipstick-Ancillary (obtain specimen); Complete Time: 20:21 kb Administered Medications: 19:30 Drug: Zofran (Ondansetron) 4 mg Route: IVP; Site: left antecubital; ld1 21:02 Follow up: Response: No adverse reaction ld1 19:30 Drug: Flomax (tamsulosin) 0.4 mg Route: PO; ld1 21:02 Follow up: Response: No adverse reaction ld1 19:30 Drug: morphine 4 mg Route: IVP; Site: left antecubital; ld1 20:15 Drug: NS 0.9% 1000 ml Route: IV; Rate: 1000 ml; Site: left antecubital; ld1 21:02 Follow up: Response: No adverse reaction; IV Status: Completed infusion; IV Intake: ld1 1000ml 20:15 Drug: Magnesium Sulfate 1 grams Route: IVPB; Infused Over: 30 mins; Site: left ld1 antecubital; 21:02 Follow up: Response: No adverse reaction; IV Status: Completed infusion; IV Intake: ld1 100ml 21:01 Drug: Ketorolac 30 mg Route: IVP; Site: left antecubital; ld1 21:02 Follow up: Response: No adverse reaction ld1 Disposition Summary: 12/29/20 21:18 Discharge Ordered Location: Home kb Condition: Stable kb Diagnosis - Calculus of kidney with calculus of ureter kb - Unspecified hydronephrosis kb Followup: kb - With: Emergency Department - When: As needed - Reason: Worsening of condition Followup: kb - With: Private Physician - When: 2 - 3 days - Reason: Recheck today's complaints, Continuance of care, Re-evaluation by your physician Discharge Instructions: - Discharge Summary Sheet kb - Kidney Stones, [id number] kb Forms: - Medication Reconciliation Form kb - Thank You Letter kb - Antibiotic Education kb - Prescription Opioid Use kb Prescriptions: - Flomax 0.4 mg Oral capsule - take 1 capsule by ORAL route once daily 1/2 hour following the same meal each kb day; 10 capsule; Refills: 0, Product Selection Permitted - Zofran 4 mg Oral Tablet - take 1 tablet by ORAL route every 6 hours As needed; 20 tablet; Refills: 0, Product Selection Permitted - Diclofenac Sodium 75 mg Oral tablet,delayed release (DR/EC) - take 1 tablet by ORAL route 2 times per day As needed; 30 tablet; Refills: 0, Product Selection Permitted - Tramadol 50 mg Oral Tablet - take 1 tablet by ORAL route every 8 hours as needed; 12 tablet; Refills: 0, kb Product Selection Permitted Addendum: 12/31/2020 07:10 Co-signature as Attending Physician, Kenisha Fay I agree with the assessment and plan s p3 of care. Signatures: Dispatcher [employer] EDTaylor Troy, KENDRICK-C HOG GRADER-Ailyn Velasco RN RN jl7 Jacqueline Adair RN RN ld1 Kenisha Fay sp3 Corrections: (The following items were deleted from the chart) 12/29 22:15 22:15 : Positive for flank pain, of the right flank, kb kb
--- NOTE | 2020-12-29 21:18 | ER ---
Nurse's Notes [facility] Name: Sariah Castillo Age: 75 yrs Sex: Female : 1945 Arrival Date: 12/29/2020 Time: 15:55 Bed DIS8 Private MD: Diagnosis: Calculus of kidney with calculus of ureter;Unspecified hydronephrosis Presentation: 12/29 17:05 Chief complaint: Patient states: Right Flank pain, blood in urine, vomiting, x 3 hours, jl7 had a kidney stone about 20 years ago and it feels the same. Coronavirus screen: Client denies travel out of the [place] in the last 14 days. At this time, the client does not indicate any symptoms associated with coronavirus-19. Ebola Screen: No symptoms or risks identified at this time. Initial Sepsis Screen: Does the patient meet any 2 criteria? No. Patient's initial sepsis screen is negative. Does the patient have a suspected source of infection? No. Patient's initial sepsis screen is negative. Risk Assessment: Do you want to hurt yourself or someone else? Patient reports no desire to harm self or others. Onset of symptoms was December 29, 2020 at 14:00. 17:05 Method Of Arrival: Ambulatory [facility] 17:05 Acuity: JAVIER 3 jl7 Triage Assessment: 17:12 General: Appears in no apparent distress. uncomfortable, Behavior is calm, cooperative, jl7 appropriate for age. Pain: Complains of pain in right flank Pain currently is 10 out of 10 on a pain scale. Cardiovascular: Patient's skin is warm and dry. Respiratory: Airway is patent Respiratory effort is even, unlabored, Respiratory pattern is regular, symmetrical. GI: Reports vomiting. : Reports pain in right flank(s). Derm: Skin is pink, warm \T\ dry. Historical: - Allergies: 17:07 Aspirin; jl7 17:07 medication given in general anesthesia made her vomit, needs to be premedicated; jl7 - PMHx: 17:07 High Cholesterol; Spasmodic Dysphonia; jl7 17:09 Hypertensive disorder; Diabetes mellitus; jl7 - Immunization history:: Client reports receiving the 2nd dose of the Covid vaccine, Pfizer. - Social history:: Smoking status: Patient denies any tobacco usage or history of. Screenin:30 Abuse screen:. Nutritional screening: No deficits noted. Tuberculosis screening: No ld1 symptoms or risk factors identified. Fall Risk None identified. Assessment: 19:30 General: Appears in no apparent distress. comfortable, Behavior is calm, cooperative, ld1 appropriate for age. 19:30 Pain: Complains of pain in left low back and right low back Pain does not radiate. Pain ld1 currently is 10 out of 10 on a pain scale. Quality of pain is described as throbbing, Pain began 1 day ago. Is continuous. Neuro: Level of Consciousness is awake, alert, obeys commands, Oriented to person, place, time, situation. Respiratory: Airway is patent Respiratory effort is even, unlabored, Respiratory pattern is regular, symmetrical. GI: Abdomen is flat, non-distended, Bowel sounds present X 4 quads. Abd is soft Abd is non tender. : No signs and/or symptoms were reported regarding the genitourinary system. EENT: No signs and/or symptoms were reported regarding the EENT system. Derm: No signs and/or symptoms reported regarding the dermatologic system. Musculoskeletal: No signs and/or symptoms reported regarding the musculoskeletal system. 20:21 Reassessment: Patient appears in no apparent distress at this time. No changes from ld1 previously documented assessment. Patient and/or family updated on plan of care and expected duration. Pain level reassessed. Patient is alert, oriented x 3, equal unlabored respirations, skin warm/dry/pink. Vital Signs: 17:05 BP 188 / 82; Pulse 57; Resp 16; Temp 98.4; Pulse Ox 100% ; Weight 65.77 kg; Pain 10/10; jl7 20:21 BP 138 / 71; Pulse 69; Resp 18; Pulse Ox 96% on R/A; Pain 7/10; ld1 ED Course: 15:55 Patient arrived in ED. mr 17:07 Triage completed. jl7 17:09 Arm band placed on right wrist. jl7 17:11 Initial lab(s) drawn, by ED staff, sent to lab. Inserted saline lock: 20 gauge in left jl7 antecubital area, using aseptic technique. Blood collected. 17:30 CT Stone Protocol In Process Unspecified. EDMS 18:16 Taylor Correa FNP-C is PHCP. kb 18:16 Kenisha Fay is Attending Physician. kb 20:14 Jacqueline Adair, RN is Primary Nurse. ld1 21:30 Patient has correct armband on for positive identification. Placed in gown. Bed in low ld1 position. Call light in reach. Side rails up X2. 21:30 No provider procedures requiring assistance completed. IV discontinued, intact, ld1 bleeding controlled, No redness/swelling at site. Administered Medications: 19:30 Drug: Zofran (Ondansetron) 4 mg Route: IVP; Site: left antecubital; ld1 21:02 Follow up: Response: No adverse reaction ld1 19:30 Drug: Flomax (tamsulosin) 0.4 mg Route: PO; ld1 21:02 Follow up: Response: No adverse reaction ld1 19:30 Drug: morphine 4 mg Route: IVP; Site: left antecubital; ld1 20:15 Drug: NS 0.9% 1000 ml Route: IV; Rate: 1000 ml; Site: left antecubital; ld1 21:02 Follow up: Response: No adverse reaction; IV Status: Completed infusion; IV Intake: ld1 1000ml 20:15 Drug: Magnesium Sulfate 1 grams Route: IVPB; Infused Over: 30 mins; Site: left ld1 antecubital; 21:02 Follow up: Response: No adverse reaction; IV Status: Completed infusion; IV Intake: ld1 100ml 21:01 Drug: Ketorolac 30 mg Route: IVP; Site: left antecubital; ld1 21:02 Follow up: Response: No adverse reaction ld1 Intake: 21:02 IV: 1000ml; Total: 1000ml. ld1 21:02 IV: 100ml; Total: 1100ml. ld1 Outcome: 21:18 Discharge ordered by MD. kb 21:30 Discharged to home ambulatory. ld1 21:30 Condition: stable 21:30 Discharge instructions given to patient, Instructed on discharge instructions, follow up and referral plans. medication usage, Demonstrated understanding of instructions, follow-up care, medications. 21:30 Patient left the ED. ld1 Signatures: Dispatcher [employer] EDMS Taylor Correa, ZACH MARKS-Robert Zahida Gannon ZunigaAilyn, SEMAJ RN jl7 Jacqueline Adair, RN RN ld1 Corrections: (The following items were deleted from the chart) 20:21 19:30 BP 138 / 71; Pulse 69bpm; Resp 18bpm; Pulse Ox 96% RA; Pain 11/21; ld1 ld1
[2020-12-29] MEDS ORDERED: KETOROLAC 30 MG/ML INJ ONE (21:20)
[2020-12-29 21:47] VITALS: TEMP 98.4
[2020-12-29 21:48] VITALS: BP 138/71; O2SAT 96
== END 2020-12-29 21:30 | disposition home or self-care (01) ==
LOC: ER 15:49
DX: N13.2 Hydronephrosis with renal and ureteral calculous obstruction (principal); I10 Essential (primary) hypertension; Z88.6 Allergy status to analgesic agent
CPT/HCPCS: 96365; 85025; 80048; 36415; 76377; 74176; 96375; 99284; J3475; J7030; J2405; 81003; 81015

== ENCOUNTER 2021-01-28 12:51 | Emergency (ER) | payer OTHER ==
[2021-01-28 15:38] LABS: Hematocrit 39.6 % (36.0-45.0); MPV 7.2 fL (7.6-11.3); RBC Red Blood Cell Count 4.36 M/uL (3.86-4.86)
[2021-01-28 15:56] LABS: Potassium 4.4 mmol/L (3.5-5.1)
--- NOTE | 2021-01-28 16:52 | RAD REPORT ---
EXAM DESCRIPTION: RAD - Chest Single View - 01/28/2021 4:31 pm CLINICAL HISTORY: SOB COMPARISON: CHEST PA AND LAT 2 VIEW dated 01/29/2014; CHEST PA AND LAT 2 VIEW dated 05/27/2009; CHEST PA AND LAT 2 VIEW dated 03/24/2009; CHEST PA AND LAT 2 VIEW dated 07/20/2000 FINDINGS: Lines: None. Lungs: No evidence of edema or pneumonia. Pleural: No significant pleural effusions or pneumothorax. Cardiac: The heart size is within normal limits. Bones: No acute fractures. Other: IMPRESSION: No acute cardiopulmonary disease.
--- NOTE | 2021-01-28 18:00 | ER ---
Nurse's Notes [facility] Name: Sariah Csatillo Age: 75 yrs Sex: Female : 1945 Arrival Date: 01/28/2021 Time: 12:54 Bed 17 Private MD: Diagnosis: Reactive airway disease, shortness of breath Presentation: 01/28 13:17 Chief complaint: Spouse and/or significant other states: Pt has Spasmodic Dysphonia. Pt vg1 began coughing yesterday after being exposed to burning wood and generators and spouse states pt is having trouble catching breath after coughing episodes. Coronavirus screen: Vaccine status: Patient reports receiving the 2nd dose of the covid vaccine. Client denies travel out of the [place] in the last 14 days. Ebola Screen: Patient negative for fever greater than or equal to 101.5 degrees Fahrenheit, and additional compatible Ebola Virus Disease symptoms. Initial Sepsis Screen: Does the patient meet any 2 criteria? No. Patient's initial sepsis screen is negative. Does the patient have a suspected source of infection? No. Patient's initial sepsis screen is negative. Risk Assessment: Do you want to hurt yourself or someone else? Patient reports no desire to harm self or others. Onset of symptoms was January 27, 2021. 13:17 Method Of Arrival: Ambulatory vg1 13:17 Acuity: JAVIER 3 vg1 Triage Assessment: 13:22 General: Appears in no apparent distress. comfortable, Behavior is calm, cooperative. vg1 Pain: Denies pain. Respiratory: Reports shortness of breath on exertion Onset: The symptoms/episode began/occurred yesterday, the patient has mild shortness of breath. Historical: - Allergies: 13:22 Aspirin; vg1 13:22 medication given in general anesthesia made her vomit, needs to be premedicated; vg1 - Home Meds: 13:22 carvedilol oral [Active]; amlodipine oral [Active]; alendronate oral [Active]; vg1 pravastatin oral [Active]; levothyroxine oral [Active]; Metformin Oral [Active]; - PMHx: 13:22 diabetes mellitus; High Cholesterol; Hypertensive disorder; Spasmodic Dysphonia; vg1 - Immunization history:: Adult Immunizations up to date, Client reports receiving the 2nd dose of the Covid vaccine. - Social history:: Smoking status: Patient denies any tobacco usage or history of. Screenin:57 Abuse screen: Denies threats or abuse. Denies injuries from another. Nutritional tr6 screening: No deficits noted. Tuberculosis screening: No symptoms or risk factors identified. Fall Risk None identified. Assessment: 13:58 General: Appears in no apparent distress. comfortable, slender, well groomed, Behavior tr6 is calm, cooperative, appropriate for age. Pain: Denies pain. Neuro: No deficits noted. Cardiovascular: Denies chest pain, Capillary refill < 3 seconds Rhythm is regular. Respiratory: Airway is patent Respiratory effort is even, unlabored, Breath sounds are clear bilaterally. GI: No deficits noted. : No deficits noted. EENT: No deficits noted. Derm: No deficits noted. Musculoskeletal: No deficits noted. 17:52 Reassessment: MD Roche at bedside to discuss POC and results with pt. tr6 Vital Signs: 13:17 BP 166 / 94; Pulse 96; Resp 20; Temp 98.0; Pulse Ox 95% ; Weight 65.77 kg; Height 5 ft. vg1 0 in. (152.40 cm); Pain 0/10; 14:06 BP 155 / 97; Pulse 87; Resp 18; Pulse Ox 97% on R/A; tr6 17:00 BP 138 / 81; Pulse 81; Resp 18; Pulse Ox 100% on R/A; tr6 13:17 Body Mass Index 28.32 (65.77 kg, 152.40 cm) vg1 ED Course: 12:54 Patient arrived in ED. mr 13:22 Triage completed. vg1 13:22 Arm band placed on. vg1 13:23 Hammad Roche MD is Attending Physician. kdr 13:57 Rowena Deal, SEMAJ is Primary Nurse. tr6 13:57 Patient has correct armband on for positive identification. Placed in gown. Bed in low tr6 position. Call light in reach. Side rails up X2. Pulse ox on. NIBP on. Door closed. Noise minimized. Visitors limited. Lights dimmed. Moved to private room. 14:06 No provider procedures requiring assistance completed. tr6 16:31 Chest Single View XRAY In Process Unspecified. EDMS 18:55 Patient did not have IV access during this emergency room visit. tr6 Administered Medications: No medications were administered Outcome: 17:59 Discharge ordered by . kdr 18:54 Discharged to home ambulatory. tr6 18:54 Discharged to home ambulatory, pt refused wheelchair at this time 18:54 Condition: good 18:54 Discharge instructions given to patient, family, Instructed on discharge instructions, follow up and referral plans. medication usage, safety practices, Demonstrated understanding of instructions, follow-up care, medications, Prescriptions given X 2. 18:55 Patient left the ED. tr6 Signatures: Dispatcher [employer] EDMS Hammad Roche MD MD kdr Rivera, Mary mr Garcia, Victoria, RN RN vg1 Rowena Deal RN RN tr6
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
[2021-01-28 19:25] VITALS: TEMP 98
[2021-01-28 19:28] VITALS: BP 138/81; O2SAT 100
== END 2021-01-28 18:55 | disposition home or self-care (01) ==
LOC: ER 12:51
DX: J45.909 Unspecified asthma, uncomplicated (principal); I10 Essential (primary) hypertension; E11.9 Type 2 diabetes mellitus without complications; E78.00 Pure hypercholesterolemia, unspecified; Z20.822 Contact with and (suspected) exposure to COVID-19; Z88.6 Allergy status to analgesic agent
CPT/HCPCS: 80048; 36415; 85027; 71045; 99283; U0003

== ENCOUNTER 2024-03-01 13:28 | Emergency (ER) | payer MEDICAID ==
--- OUTSIDE RECORDS SUMMARY | 2024-03-01 13:33 | XMS REPORT | Continuity of Care Document ---
Author Name Unknown Address [address] [facility] [address] [place] [address] [facility] thconnect Address [address] [facility] [address] [place] [address] Care Team Providers Care [employer] Name Role Phone Paramjit CERON, Soila Montenegro Primary Care Physician STEPHANIE SPAIN Attending Clinician Unavailable YOSEF ELENA Attending Clinician Unava ilable JOHNNY DIAS Attending Clinician Unavailable MD LILI Attending Clinician Unavailab SOILA Waters Attending Clinician Unava ilable LAB90 Attending Clinician Unavailable FIONA ALLEN Attending Clinician Unavailable JAMESON JOHNSON Attending Clinician Unavailab CHANA Bill Attending Clinician UnavailTHOMAS Cornelius Attending Clinician Unavailable Stephanie Spain DO Attending Clinician [phone] Vern Ferreira MD Attending Clinician [phone] VERN FERREIRA Attending Clinician Unavailable Soila Yusuf MD Attending Clinician [phone] Johnny Martinez Attending Clinician [phone] Payers Payer Name Policy Type Policy Number Effective Date Expirati on Date Source [facility] [id number] 2020 00:00:00 Problems Condition Name Condition Details Condition Category Status Onset Date Resolution Date Last Treatment Date Treating Clinician Comments Source PVD (periphera l vascular disease) PVD (periphera l vascular disease) Disease Active 01-24 00:00: 00 Fay Seybold - Externa l History of skin cancer History of skin cancer Disease Active 10-24 00:00: 00 Fay Seybold - Externa l History of squamous cell carcinoma of skin History of squamous cell carcinoma of skin Disease Active 10-24 00:00: 00 Fay Seybold - Externa l Hyperlipid emia Hyperlipid emia Disease Active 07-24 00:00: 00 Fay Seybold - Externa l Prediabete s Prediabete s Disease Active 07-24 00:00: 00 Fay Seybold - Externa l 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 Controlle d - Continue pravastat in, metformin Fay Jaimesold - Externa l Well adult exam Well adult exam Disease Active 01-11 00:00: 00 Fay Seybold - Externa l Acquired hypothyroi dism Acquired hypothyroi dism Disease Active 01-11 00:00: 00 Last Assessmen t & Plan: Formattin g of this note might be different from the original. Unchanged - Continue levothyro xine Fay Seybold - Externa l Seasonal allergic rhinitis due to pollen Seasonal allergic rhinitis due to pollen Disease Active 01-11 00:00: 00 Last Assessmen t & Plan: Formattin g of this note might be different from the original. Controlle d - Continue loratidin e Fay Seybold - Externa l Lumbar radiculopa thy Lumbar radiculopa thy Disease Active 7-27 00:00: 00 Last Assessmen t & Plan: Formattin g of this note might be different from the original. Unchanged - Follows with Neurology - Continue tizanijesica e Fay Ayala - Externa l Acute medial meniscus tear, left, subsequent encounter Acute medial meniscus tear, left, subsequent encounter Disease Active 10-07 00:00: 00 Fya Ayala - Externa l Effusion of left knee Effusion of left knee Disease Active 10-07 00:00: 00 Fay Ayala - Externa l Other cyst of bone, left lower leg Other cyst of bone, left lower leg Disease Active 10-07 00:00: 00 Fay Ayala - Externa l Age-relate d osteoporos is without current pathologic al fracture Age-relate d osteoporos is without current pathologic al fracture Disease Active 10-07 00:00: 00 Last Assessmen t & Plan: Formattin g of this note might be different from the original. Unchanged - Continue alendrona te Fay Ayala - Externa l Reactive airway disease that is not asthma Reactive airway disease that is not asthma Disease Active 9-20 00:00: 00 Overview: Formattin g of this note might be different from the original. IMO [id number] Fay Ayala UTI (urinary tract infection) , uncomplica malinda UTI (urinary tract infection) , uncomplica malinda Disease Active 9-10 00:00: 00 Fay Ayala Kidney stone Kidney stone Disease Active 9-10 00:00: 00 Fay Ayala Spasmodic dysphonia Spasmodic dysphonia Disease Active 8-02 00:00: 00 Last Assessmen t & Plan: Formattin g of this note might be different from the original. Unchanged - ENT referral offered. However, she declined. Fay Ayala - Externa l Essential hypertensi on, benign Essential hypertensi on, benign Disease Active 4-29 00:00: 00 Last Assessmen t & Plan: Formattin g of this note might be different from the original. Controlle d - Continue amlodipin e, carvedilo l Fay Ayala - Externa l Hyperchole sterolemia Hyperchole sterolemia Disease Active 09-10 00:00: 00 Fay Ayala - Externa l Allergies, Adverse Reactions, Alerts Allergy Name Allergy Type Status Severity Reaction(s) Onset Date Inactive Date Treating Clinician Comments Source Aspirin Propensi ty to adverse reaction s Active Diarrhea 09-10 00:00: 00 Fay Ayala - Externa l Lisinopr il Propensi ty to adverse reaction s Active Cough 09-10 00:00: 00 Fay Ayala Lisinopr il Propensi ty to adverse reaction s Active Cough 09-10 00:00: 00 Fay Ayala - Externa l Social History Social Habit Start Date Stop Date Quantity Comments Source Gender identity 2020-12-13 12:17:51 Identifies as female gender (finding) Fay Ayala - External History of tobacco use Cigarette Smoker Fay waddell - External Sexual orientation Fan Ayala - External ASSERTION Not Fay Ayala - External History of Occupation Fay Ayala - External Alcoholic beverage intake 2024-01-25 00:00:00 2024-01-25 00:00:00 Ex-drinker (finding) Fay Ayala - External Tobacco use and exposure 2023-09-27 00:00:00 2023-09-27 00:00:00 Smokeless tobacco non-user Fay Ayala - External Cigarettes smoked current (pack per day) - Reported 2023-09-27 00:00:00 2023-09-27 00:00:00 Fay Ayala - External Cigarette pack-years 2023-09-27 00:00:00 2023-09-27 00:00:00 Fay Ayala - External Alcohol intake 2023-07-25 00:00:00 2023-07-25 00:00:00 Ex-drinker (finding) Fay Ayala - External History of Social function 2023-01-30 00:00:00 2023-01-30 00:00:00 Fay Ayala - External Tobacco Comment 2022-11-10 00:00:00 2022-11-10 00:00:00 quit over 40 yrs Fay Ayala - External Education 2021-12-08 00:00:00 2021-12-08 00:00:00 18 Fay Evansnatanaelbairon - External Sex 2020-08-11 17:06:55 2020-08-11 17:06:55 Female (finding) Fay Ayala - External Sex assigned at 1945 00:00:00 1945 00:00:00 F Fay Lucy - Gume Smoking Status Start Date Stop Date Source Ex-smoker 2023-09-27 00:00:00 2023-09-27 00:00:00 Fan treadwell Seevelina - External Medications Ordered Medication Name Filled Medication Name Start Date Stop Date Current Medication? Ordering Clinician Indication Dosage Frequency Signature (SIG) Comments Components Source Pravastatin Sodium 80 MG oral Tablet 12-11 00:00: 00 Yes [id number] 80mg Take 1 tablet (80 mg total) by mouth every morning. Fay gracia Loratadine 10 MG oral Capsule 10-24 11:05: 06 10-24 00:00 :00 No 10mg Take 1 capsule (10 mg total) by mouth 2 times daily. Fay gracia [place]-3 Fatty Acids (Fish Oil) 1000 MG oral Capsule 10-24 10:46: 27 Yes 2000mg QD Take 2 capsules (2,000 mg total) by mouth daily. Fay gracia Cholecalcif delilah (Vitamin D) 25 MCG (1000 UT) oral Tablet 10-24 10:46: 27 Yes 25U QD Take 25 units by mouth daily Fay gracia Loratadine 10 MG oral Capsule 10-24 00:00: 00 Yes [id number] 10mg QD Take 1 capsule (10 mg total) by mouth daily. Fay gracia Carvedilol 25 MG oral Tablet 10-03 00:00: 00 Yes [id number] 25mg Q.5D Take 1 tablet (25 mg total) by mouth 2 times daily. Fay gracia Amlodipine Besylate 2.5 MG oral Tablet 10-03 00:00: 00 Yes [id number] 2.5mg QD Take 1 tablet (2.5 mg total) by mouth daily. Fay gracia Tizanidine HCl 2 MG oral Tablet 5-10 00:00: 00 Yes [id number] 2mg QD Take 1 tablet (2 mg total) by mouth nightly as needed for muscle spasms. Fay gracia Alendronate Sodium 70 MG oral Tablet 4-08 00:00: 00 Yes 70mg Q1W Take 1 tablet (70 mg total) by mouth once a week. Fay gracia Cromolyn Sodium (NASALCROM NA) 07-24 09:32: 23 07-24 00:00 :00 No by nasal route Fay gracia Fexofenadin e HCl (MUCINEX ALLERGY OR) 07-24 09:31: 28 07-24 00:00 :00 No Take by mouth as needed Fay gracia Loperamide HCl (Imodium A-D) 2 MG oral Tablet 07-24 09:21: 06 09-26 00:00 :00 No 2mg QD Take 1 tablet (2 mg total) by mouth daily as needed for diarrhea. Fay gracia [place]-3 Fatty Acids (Fish Oil) 1000 MG oral Capsule 07-24 09:02: 08 Yes 2000mg Take 2 capsules (2,000 mg total) by mouth daily. Fay gracia Cholecalcif delilah (Vitamin D) 25 MCG (1000 UT) oral Tablet 07-24 09:02: 08 Yes 25U Take 25 units by mouth daily Fay gracia Loratadine 10 MG oral Capsule 07-24 09:02: 08 Yes 10mg Take 1 capsule (10 mg total) by mouth 2 times daily. Fay gracia Benzonatate (Tessalon Perles) 100 MG oral Capsule 07-24 00:00: 00 Yes [id number] 100mg Q.[id number] 3D Take 1 capsule (100 mg total) by mouth 3 times daily as needed for cough. Fay gracia Cromolyn Sodium (NasalCrom) 5.2 MG/ACT nasal Aerosol Solution 07-24 00:00: 00 Yes [id number] 1{spray } QD Use 1 spray in each nostril daily as needed. Fay gracia Triamcinolo ne Acetonide 0.1 % apply externally Cream 07-24 00:00: 00 08-22 04:59 :00 No [id number] Apply to affected skin twice daily for 10 days. Fay gracia Carvedilol 25 MG oral Tablet 07-10 00:00: 00 Yes [id number] 25mg Take 1 tablet (25 mg total) by mouth 2 times daily. Fay gracia Amlodipine Besylate 2.5 MG oral Tablet 07-10 00:00: 00 Yes [id number] 2.5mg Take 1 tablet (2.5 mg total) by mouth daily. Fay gracia Pravastatin Sodium 80 MG oral Tablet 06-14 00:00: 00 Yes [id number] 80mg Take 1 tablet (80 mg total) by mouth every morning. Fay gracia Alendronate Sodium 70 MG oral Tablet 05-30 00:00: 00 Yes 70mg Take 1 tablet (70 mg total) by mouth once a week. Fay gracia Amoxicillin -Pot Clavulanate 500-125 MG oral Tablet 2022-05 00:00: 00 07-24 00:00 :00 No [id number] 1{tbl} Take 1 tablet by mouth 2 times daily. Fay gracia [place]-3 Fatty Acids (Fish Oil) 1000 MG oral Capsule 2022-05 13:28: 20 Yes 2000mg Take 2 capsules (2,000 mg total) by mouth daily. Fay gracia Cholecalcif delilah (Vitamin D) 25 MCG (1000 UT) oral Tablet 2022-05 13:28: 20 Yes 25U Take 25 units by mouth daily Fay gracia Loratadine 10 MG oral Capsule 2022-05 13:28: 20 Yes 10mg Take 1 capsule (10 mg total) by mouth 2 times daily. Fay gracia Fexofenadin e HCl (MUCINEX ALLERGY OR) 2022-05 0 13:28: 20 Yes Take by mouth as needed Fay gracia Cromolyn Sodium (NASALCROM NA) 2022-05 0 13:28: 20 Yes by nasal route Fay gracia Alendronate Sodium 70 MG oral Tablet 2022-05 0 00:00: 00 Yes Take 1 tablet by mouth once a week Fay gracia Fexofenadin e HCl (MUCINEX ALLERGY OR) 2022-05 0 15:08: 53 Yes Take by mouth as needed Fay gracia [place]-3 Fatty Acids (Fish Oil) 1000 MG oral Capsule 2022-05 15:07: 53 Yes 2000mg Take 2 capsules (2,000 mg total) by mouth daily. Fay gracia Cholecalcif delilah (Vitamin D) 25 MCG (1000 UT) oral Tablet 2022-05 15:07: 53 Yes 25U Take 25 units by mouth daily Fay gracia Loratadine 10 MG oral Capsule 2022-05 15:07: 53 Yes 10mg Take 1 capsule (10 mg total) by mouth 2 times daily. Fay gracia Cromolyn Sodium (NASALCROM NA) 2022-05 15:07: 53 Yes by nasal route Fay gracia Doxycycline Hyclate 100 MG oral Tablet 2022-05 00:00: 00 07-24 00:00 :00 No [id number] 100mg Take 1 tablet (100 mg total) by mouth 2 times daily. Fay gracia Mupirocin (BACTROBAN) 2 % apply externally Ointment 2022-05 0 00:00: 00 07-24 00:00 :00 No [id number] Apply 1 applicatio n. topically 3 times daily. Fay gracia Carvedilol 25 MG oral Tablet 01-17 00:00: 00 Yes [id number] 25mg Take 1 tablet (25 mg total) by mouth 2 times daily. Fay gracia Amlodipine Besylate 2.5 MG oral Tablet 01-17 00:00: 00 Yes [id number] 2.5mg Take 1 tablet (2.5 mg total) by mouth daily. Fay gracia Levothyroxi ne Sodium 50 MCG oral Tablet 01-05 00:00: 00 Yes [id number] 50ug QD Take 1 tablet (50 mcg total) by mouth daily. Fay gracia Alendronate Sodium 70 MG oral Tablet 12-13 00:00: 00 Yes Take 1 tablet by mouth once a week Fay gracia Tizanidine HCl 2 MG oral Tablet 11-11 00:00: 00 Yes [id number] TAKE 1 TABLET BY MOUTH NIGHTLY NEEDED FOR MUSCLE SPASM Fay gracia [place]-3 Fatty Acids (Fish Oil) 1000 MG oral Capsule 11-10 13:09: 54 Yes 2000mg Take 2 capsules (2,000 mg total) by mouth daily Fay gracia Cholecalcif delilah (Vitamin D) 25 MCG (1000 UT) oral Tablet 11-10 13:09: 54 Yes 25U Take 25 units by mouth daily Fay gracia Loratadine 10 MG oral Capsule 11-10 13:09: 54 Yes 10mg Take 1 capsule (10 mg total) by mouth 2 times daily Fay gracia Fexofenadin e HCl (MUCINEX ALLERGY OR) 11-10 13:09: 54 Yes Take by mouth as needed Fay gracia Cromolyn Sodium (NASALCROM NA) 11-10 13:09: 54 Yes by nasal route Fay gracia Amlodipine Besylate 2.5 MG oral Tablet 11-04 00:00: 00 Yes [id number] 2.5mg Take 1 tablet (2.5 mg total) by mouth daily Fay gracia Carvedilol 25 MG oral Tablet 11-04 00:00: 00 Yes [id number] 25mg Take 1 tablet (25 mg total) by mouth 2 times daily Fay gracia Metformin HCl ER 500 MG oral TABLET SR 24 HR 11-03 00:00: 00 Yes TAKE 2 TABLETS BY MOUTH ONCE DAILY WITH BREAKFAST Fay gracia Levothyroxi ne Sodium 50 MCG oral Tablet 10-10 00:00: 00 Yes [id number] Take 1 tablet by mouth once daily Fay gracia Alendronate Sodium 70 MG oral Tablet 15 00:00: 00 Yes Take 1 tablet by mouth once a week Fay gracia Pravastatin Sodium 80 MG oral Tablet 2021-05 00:00: 00 Yes [id number] 80mg Take 1 tablet (80 mg total) by mouth every morning Fay gracia [place]-3 Fatty Acids (Fish Oil) 1000 MG oral Capsule 2021-05 11:10: 16 Yes 2000mg Take 2,000 mg by mouth daily Fay gracia Cholecalcif delilah (Vitamin D) 25 MCG (1000 UT) oral Tablet 2021-05 11:10: 16 Yes 25U Take 25 units by mouth daily Fay gracia Loratadine 10 MG oral Capsule 2021-05 11:10: 16 Yes 10mg Take 10 mg by mouth 2 times daily Fay gracia Fexofenadin e HCl (MUCINEX ALLERGY OR) 2021-05 11:10: 16 Yes Take by mouth as needed Fay gracia Cromolyn Sodium (NASALCROM NA) 2021-05 11:10: 16 Yes by nasal route Fay gracia Tizanidine HCl 2 MG oral Capsule 2021-05 00:00: 00 Yes [id number] 2mg QD Take 1 capsule (2 mg total) by mouth nightly as needed for muscle spasms Fay gracia Amlodipine Besylate 2.5 MG oral Tablet 2021-05 00:00: 00 Yes [id number] Take 1 tablet by mouth once daily Fay gracia Alendronate Sodium 70 MG oral Tablet 01-04 00:00: 00 Yes Take 1 tablet by mouth once a week Fay gracia Gabapentin 100 MG oral Capsule 12-08 00:00: 00 03-22 00:00 :00 No [id number] 100mg Q.[id number] 3D Take 1 capsule (100 mg total) by mouth 3 times daily as needed Fay gracia Carvedilol 25 MG oral Tablet 11-13 00:00: 00 Yes [id number] 25mg Take 1 tablet (25 mg total) by mouth 2 times daily Fay gracia Levothyroxi ne Sodium 50 MCG oral Tablet 10-20 00:00: 00 Yes [id number] 50ug Take 1 tablet (50 mcg total) by mouth daily Fay gracia Metformin HCl ER 500 MG oral TABLET SR 24 HR 10-20 00:00: 00 Yes 1000mg Take 2 tablets (1,000 mg total) by mouth daily (with breakfast) Fay gracia Amlodipine Besylate 5 MG oral Tablet 10-07 10:57: 18 Yes 5mg Take 5 mg by mouth daily Fay Ayala [place]-3 Fatty Acids (Fish Oil) 1000 MG oral Capsule 10-07 10:57: 18 Yes 2000mg Take 2,000 mg by mouth daily Fay Ayala Cholecalcif delilah (Vitamin D) 25 MCG (1000 UT) oral Tablet 10-07 10:57: 18 Yes 25U Take 25 units by mouth daily Fay Ayala Loratadine 10 MG oral Capsule 10-07 10:57: 18 Yes 10mg Take 10 mg by mouth 2 times daily Fay Ayala Fexofenadin e HCl (MUCINEX ALLERGY OR) 10-07 10:57: 18 Yes Take by mouth as needed Fay Ayala Cromolyn Sodium (NASALCROM NA) 10-07 10:57: 18 Yes by nasal route Fay Ayala predniSONE (DELTASONE) 10 MG oral tablet 10-07 00:00: 00 Yes [id number] One pill twice daily for 7 days then one pill daily for 7 days Fay Ayala Carvedilol 25 MG oral Tablet 4-04 00:00: 00 Yes [id number] Take 1 tablet by mouth twice daily Fay Ayala Acetaminoph en-Codeine #3 300-30 MG oral Tablet 3-28 00:00: 00 Yes [id number] 1{tbl} Q.25D Take 1 tablet by mouth every 6 hours as needed Fay Ayala Levothyroxi ne Sodium 50 MCG oral Tablet 3-15 00:00: 00 Yes [id number] Take 1 tablet by mouth once daily Fay Ayala Tizanidine HCl 4 MG oral Tablet 3-11 00:00: 00 Yes [id number] 4mg Q.[id number] 3D Take 1 tablet (4 mg total) by mouth every 8 hours as needed for muscle spasms Use sparingly Fay Ayala Celecoxib (CeleBREX) 200 MG oral Capsule - 00:00: 00 Yes [id number] 200mg Take 1 capsule (200 mg total) by mouth in the morning and 1 capsule (200 mg total) in the evening. Fay Ayala Pravastatin Sodium 80 MG oral Tablet 07 00:00: 00 Yes [id number] 80mg Take 1 tablet (80 mg total) by mouth in the morning. Fay Ayala - Externa l Amlodipine Besylate 5 MG oral Tablet 07-06 10:46: 35 Yes 5mg Take 5 mg by mouth daily Fay Ayala [place]-3 Fatty Acids (Fish Oil) 1000 MG oral Capsule 07-06 10:46: 35 Yes 2000mg Take 2,000 mg by mouth daily Fay Ayala Cholecalcif delilah (Vitamin D) 25 MCG (1000 UT) oral Tablet 07-06 10:46: 35 Yes 25U Take 25 units by mouth daily Fay Ayala Loratadine 10 MG oral Capsule 07-06 10:46: 35 Yes 10mg Take 10 mg by mouth 2 times daily Fay Ayala Pseudoephed rine-Codein e-GG (ROBITUSSIN DAC OR) 07-06 10:46: 35 Yes Take by mouth as needed Fay Ayala Cromolyn Sodium (NASALCROM NA) 07-06 10:46: 35 Yes by nasal route Fay Ayala Acetaminoph en-Codeine #3 300-30 MG oral Tablet 07-06 00:00: 00 Yes [id number] 1{tbl} Q6H Take 1 tablet by mouth every 6 hours as needed Fay Ayala Amlodipine Besylate 5 MG oral Tablet 05-27 13:04: 11 Yes 5mg Take 5 mg by mouth daily Fay Ayala [place]-3 Fatty Acids (Fish Oil) 1000 MG oral Capsule 05-27 13:04: 11 Yes 2000mg Take 2 capsules (2,000 mg total) by mouth daily. Fay gracia Cholecalcif delilah (Vitamin D) 25 MCG (1000 UT) oral Tablet 05-27 13:04: 11 Yes 25U Take 25 units by mouth daily Fay gracia Loratadine 10 MG oral Capsule 05-27 13:04: 11 Yes 10mg Take 1 capsule (10 mg total) by mouth 2 times daily. Fay gracia Pseudoephed rine-Codein e-GG (ROBITUSSIN DAC OR) 05-27 13:04: 11 Yes Take by mouth as needed Fay Ayala Cromolyn Sodium (NASALCROM NA) 05-27 13:04: 11 Yes by nasal route Fay Ayala Celecoxib (CeleBREX) 200 MG oral Capsule 05-27 00:00: 00 Yes [id number] 200mg Take 1 capsule (200 mg total) by mouth 2 times daily Fay Ayala Tramadol HCl 50 MG oral Tablet 05-27 00:00: 00 Yes [id number] 50mg Q6H Take 1 tablet (50 mg total) by mouth every 6 hours as needed for pain Fay Ayala Amlodipine Besylate 2.5 MG oral Tablet 2020-05 0 00:00: 00 Yes [id number] 2.5mg Take 1 tablet (2.5 mg total) by mouth daily Fay Ayala Amlodipine Besylate 5 MG oral Tablet 02-01 10:14: 09 Yes 5mg Take 5 mg by mouth daily Fay Ayala [place]-3 Fatty Acids (Fish Oil) 1000 MG oral Capsule 02-01 10:14: 09 Yes 2000mg Take 2,000 mg by mouth daily Fay Ayala Cholecalcif delilah (Vitamin D) 25 MCG (1000 UT) oral Tablet 02-01 10:14: 09 Yes 25U Take 25 units by mouth daily Fay Ayala Loratadine 10 MG oral Capsule 02-01 10:14: 09 Yes 10mg Take 10 mg by mouth 2 times daily Fay Ayala Pseudoephed rine-Codein e-GG (ROBITUSSIN DAC OR) 02-01 10:14: 09 Yes Take by mouth as needed Fay Ayala Cromolyn Sodium (NASALCROM NA) 02-01 10:14: 09 Yes by nasal route Fay Ayala methylPREDN ISolone 4 MG oral Tablet Therapy Pack 01-29 00:00: 00 10-07 00:00 :00 No Fay Ayala Albuterol HFA 108 (90 Base) MCG/ACT IN AERS 01-29 00:00: 00 08-23 00:00 :00 No Fay Ayala Phenazopyri dine HCl 200 MG oral Tablet 01-22 00:00: 00 Yes [id number] 200mg Q.[id number] 3D Take 1 tablet (200 mg total) by mouth 3 times daily as needed for pain Will turn urine bright orange Fay Ayala Tamsulosin HCl 0.4 MG oral Capsule 01-22 00:00: 00 Yes [id number] .4mg Take 1 capsule (0.4 mg total) by mouth daily Fay Ayala Nitrofurant oin Monohyd Macro 100 MG oral Capsule 01-22 00:00: 00 01-28 04:59 :00 No [id number] 100mg Take 1 capsule (100 mg total) by mouth 2 times daily for 5 days Fay Ayala Carvedilol 25 MG oral Tablet 01-21 00:00: 00 Yes [id number] 25mg Take 1 tablet (25 mg total) by mouth 2 times daily Fay Ayala Levothyroxi ne Sodium 50 MCG oral Tablet 01-21 00:00: 00 Yes [id number] 50ug Take 1 tablet (50 mcg total) by mouth daily Fay Ayala Pravastatin Sodium 80 MG oral Tablet 01-21 00:00: 00 Yes [id number] 80mg Take 1 tablet (80 mg total) by mouth daily Fay Ayala Amlodipine Besylate 5 MG oral Tablet 01-04 10:02: 51 Yes 5mg Take 5 mg by mouth daily Fay Ayala [place]-3 Fatty Acids (Fish Oil) 1000 MG oral Capsule 01-04 10:02: 51 Yes 2000mg Take 2,000 mg by mouth daily Fay Ayala Cholecalcif delilah (Vitamin D) 25 MCG (1000 UT) oral Tablet 01-04 10:02: 51 Yes 25U Take 25 units by mouth daily Fay Ayala Loratadine 10 MG oral Capsule 01-04 10:02: 51 Yes 10mg Take 10 mg by mouth 2 times daily Fay Ayala Pseudoephed rine-Codein e-GG (ROBITUSSIN DAC OR) 01-04 10:02: 51 Yes Take by mouth as needed Fay Ayala Cromolyn Sodium (NASALCROM NA) 01-04 10:02: 51 Yes by nasal route Fay Ayala Acetaminoph en-Codeine #3 300-30 MG oral Tablet 12-18 00:00: 00 Yes 1{tbl} Q6H Take 1 tablet by mouth every 6 hours as needed Fay Ayala Desipramine HCl 10 MG oral Tablet 12-14 00:00: 00 05-27 00:00 :00 No 10mg Take 1 tablet (10 mg total) by mouth nightly Fay Ayala Alendronate Sodium 70 MG oral Tablet 11-23 00:00: 00 Yes Take 1 tablet by mouth once a week Fay Ayala Metformin HCl ER 500 MG oral TABLET SR 24 HR 2021-0 5-28 00:00: 00 Yes TAKE 2 TABLETS BY MOUTH ONCE DAILY WITH BREAKFAST Fay Ayala Immunizations Ordered Immunization Name Filled Immunization Name Date Status Comments Source Influenza Virus Vaccine, High Dose, Age 65 And Up 2022-01-13 00:00:00 Completed Fay Evansybold - External Influenza Virus Vaccine, Quadrivalent, High Dose, Age 65 And Up 2022-01-13 00:00:00 Completed Fay Seybold - External Influenza Virus Vaccine, High Dose, Age 65 And Up 2022-01-13 00:00:00 Completed Fay Seybold - External Influenza Virus Vaccine, Quadrivalent, High Dose, Age 65 And Up 2022-01-13 00:00:00 Completed Fay Jaimesold - External Covid-19 Vaccine (eROI), Mrna-lnp, [place] Protein, Pf, 30mcg/0.3ml,IM 2021-02-12 00:00:00 Completed Fay Seybold Covid-19 Vaccine (eROI), Mrna-lnp, [place] Protein, Pf, 30mcg/0.3ml,IM 2021-02-12 00:00:00 Completed Fay Seybold Covid-19 Vaccine (eROI), Mrna-lnp, [place] Protein, Pf, 30mcg/0.3ml,IM 2021-02-12 00:00:00 Completed Fay Seybold Covid-19 Vaccine (Pfizer), Mrna-lnp, [place] Protein, Pf, 30mcg/0.3ml,IM 2021-02-12 00:00:00 Completed Fay Seybold Covid-19 Vaccine (eROI), Mrna-lnp, [place] Protein, Pf, 30mcg/0.3ml,IM 2021-02-12 00:00:00 Completed Fay Seybold - External Covid-19 Vaccine (eROI), Mrna-lnp, [place] Protein, Pf, 30mcg/0.3ml,IM 2021-02-12 00:00:00 Completed Fay Seybold - External Influenza Virus Vaccine, Quadrivalent, High Dose, Age 65 And Up 2021-02-01 00:00:00 Completed Fay Seybold Influenza Virus Vaccine, Quadrivalent, High Dose, Age 65 And Up 2021-02-01 00:00:00 Completed Fay Seybold Influenza Virus Vaccine, Quadrivalent, High Dose, Age 65 And Up 2021-02-01 00:00:00 Completed Fay Seybold Influenza Virus Vaccine, Quadrivalent, High Dose, Age 65 And Up 2021-02-01 00:00:00 Completed Fay Seybold Influenza Virus Vaccine, Quadrivalent, High Dose, Age 65 And Up 2021-02-01 00:00:00 Completed Fay Seybold Influenza Virus Vaccine, Quadrivalent, High Dose, Age 65 And Up 2021-02-01 00:00:00 Completed Fay Seybold - External Influenza Virus Vaccine, Quadrivalent, High Dose, Age 65 And Up 2021-02-01 00:00:00 Completed Fay Seybold - External Covid-19 Vaccine (Pfizer), Mrna-lnp, [place] Protein, Pf, 30mcg/0.3ml,IM 2020-08-21 00:00:00 Completed Fay Seybold Covid-19 Vaccine (Pfizer), Mrna-lnp, [place] Protein, Pf, 30mcg/0.3ml,IM 2020-08-21 00:00:00 Completed Fay Seybold Covid-19 Vaccine (Pfizer), Mrna-lnp, [place] Protein, Pf, 30mcg/0.3ml,IM 2020-08-21 00:00:00 Completed Fay Seybold Covid-19 Vaccine (Pfizer), Mrna-lnp, [place] Protein, Pf, 30mcg/0.3ml,IM 2020-08-21 00:00:00 Completed Fay Seybold Covid-19 Vaccine (Pfizer), Mrna-lnp, Aldair Protein, Pf, 30mcg/0.3ml,IM 2020-08-21 00:00:00 Completed Fay Seybold - External Covid-19 Vaccine (Pfizer), Mrna-lnp, Aldair Protein, Pf, 30mcg/0.3ml,IM 2020-08-21 00:00:00 Completed Fay Seybold Covid-19 Vaccine (Pfizer), Mrna-lnp, Aldair Protein, Pf, 30mcg/0.3ml,IM 2020-08-21 00:00:00 Completed Fay Seybold - External Covid-19 Vaccine (Pfizer), Mrna-lnp, Aldair Protein, Pf, 30mcg/0.3ml,IM 2020-08-21 00:00:00 Completed Fay Seybold Covid-19 Vaccine (Pfizer), Mrna-lnp, Aldair Protein, Pf, 30mcg/0.3ml,IM 2020-07-29 00:00:00 Completed Fay Seybold Covid-19 Vaccine (Pfizer), Mrna-lnp, Aldair Protein, Pf, 30mcg/0.3ml,IM 2020-07-29 00:00:00 Completed Fay Seybold Covid-19 Vaccine (Pfizer), Mrna-lnp, Aldair Protein, Pf, 30mcg/0.3ml,IM 2020-07-29 00:00:00 Completed Fay Seybold Covid-19 Vaccine (Pfizer), Mrna-lnp, Aldair Protein, Pf, 30mcg/0.3ml,IM 2020-07-29 00:00:00 Completed Fay Seybold Covid-19 Vaccine (Pfizer), Mrna-lnp, Aldair Protein, Pf, 30mcg/0.3ml,IM 2020-07-29 00:00:00 Completed Fay Seybold Covid-19 Vaccine (Pfizer), Mrna-lnp, Aldair Protein, Pf, 30mcg/0.3ml,IM 2020-07-29 00:00:00 Completed Fay Seybold - External Covid-19 Vaccine (Pfizer), Mrna-lnp, Aldair Protein, Pf, 30mcg/0.3ml,IM 2020-07-29 00:00:00 Completed Fay Seybold Covid-19 Vaccine (Pfizer), Mrna-lnp, Aldair Protein, Pf, 30mcg/0.3ml,IM 2020-07-29 00:00:00 Completed Fay Seybold - External Shingles IM (Shingrix) 2020-03-29 00:00:00 Completed Fay Seybold Shingles IM (Shingrix) 2020-03-29 00:00:00 Completed Fay Seybold Shingles IM (Shingrix) 2020-03-29 00:00:00 Completed Fay Seybold Shingles IM (Shingrix) 2020-03-29 00:00:00 Completed Fay Seybold Shingles IM (Shingrix) 2020-03-29 00:00:00 Completed Fay Seybold - External Shingles IM (Shingrix) 2020-03-29 00:00:00 Completed Fay Seybold - External Shingles IM (Shingrix) 2020-03-29 00:00:00 Completed Fay Seybold Shingles IM (Shingrix) 2020-03-29 00:00:00 Completed Fay Seybold Shingles IM (Shingrix) 2018-04-11 00:00:00 Completed Fay Seybold Shingles IM (Shingrix) 2018-04-11 00:00:00 Completed Fay Seybold Shingles IM (Shingrix) 2018-04-11 00:00:00 Completed Fay Seybold Shingles IM (Shingrix) 2018-04-11 00:00:00 Completed Fay Seybold Shingles IM (Shingrix) 2018-04-11 00:00:00 Completed Fay Seybold - External Shingles IM (Shingrix) 2018-04-11 00:00:00 Completed Fay Seybold - External Shingles IM (Shingrix) 2018-04-11 00:00:00 Completed Fay Seybold Shingles IM (Shingrix) 2018-04-11 00:00:00 Completed Fay Seybold Influenza Virus Vaccine, age 6 months and up 2018-02-13 00:00:00 Completed Fay Seybold Influenza Virus Vaccine, age 6 months and up 2018-02-13 00:00:00 Completed Fay Seybold Influenza Virus Vaccine, age 6 months and up 2018-02-13 00:00:00 Completed Fay Seybold Influenza Virus Vaccine, age 6 months and up 2018-02-13 00:00:00 Completed Fay Seybold Influenza Virus Vaccine, age 6 months and up 2018-02-13 00:00:00 Completed Fay Seybold - External Influenza Virus Vaccine, age 6 months and up 2018-02-13 00:00:00 Completed Fay Seybold - External Influenza Virus Vaccine, age 6 months and up 2018-02-13 00:00:00 Completed Fay Seybold Influenza Virus Vaccine, age 6 months and up 2018-02-13 00:00:00 Completed Fay Seybold Shingles IM (Shingrix) 2017-10-30 00:00:00 Completed Fay Seybold Shingles IM (Shingrix) 2017-10-30 00:00:00 Completed Fay Seybold Shingles IM (Shingrix) 2017-10-30 00:00:00 Completed Fay Seybold Shingles IM (Shingrix) 2017-10-30 00:00:00 Completed Fay Seybold Shingles IM (Shingrix) 2017-10-30 00:00:00 Completed Fay Seybold - External Shingles IM (Shingrix) 2017-10-30 00:00:00 Completed Fay Seybold - External Shingles IM (Shingrix) 2017-10-30 00:00:00 Completed Fay Seybold Shingles IM (Shingrix) 2017-10-30 00:00:00 Completed Fay Seybold Pneumococcal Vaccine, Conjugate 13 2016-09-12 00:00:00 Completed Fay Seybold Pneumococcal Vaccine, Conjugate 13 2016-09-12 00:00:00 Completed Fay Seybold Pneumococcal Vaccine, Conjugate 13 2016-09-12 00:00:00 Completed Fay Seybold Pneumococcal Vaccine, Conjugate 13 2016-09-12 00:00:00 Completed Fay Seybold Pneumococcal Vaccine, Conjugate 13 2016-09-12 00:00:00 Completed Fay Seybold - External Pneumococcal Vaccine, Conjugate 13 2016-09-12 00:00:00 Completed Fay Seybold - External Pneumococcal Vaccine, Conjugate 13 2016-09-12 00:00:00 Completed Fay Seybold Pneumococcal Vaccine, Conjugate 13 2016-09-12 00:00:00 Completed Fay Seybold Tdap- (Boostrix, Adacel) 2016-05-18 00:00:00 Completed Fay Seybold Tdap- (Boostrix, Adacel) 2016-05-18 00:00:00 Completed Fay Seybold Tdap- (Boostrix, Adacel) 2016-05-18 00:00:00 Completed Fay Seybold Tdap- (Boostrix, Adacel) 2016-05-18 00:00:00 Completed Fay Seybold Tdap- (Boostrix, Adacel) 2016-05-18 00:00:00 Completed Fay Seybold - External Tdap- (Boostrix, Adacel) 2016-05-18 00:00:00 Completed Fay Seybold - External Tdap- (Boostrix, Adacel) 2016-05-18 00:00:00 Completed Fay Seybold Tdap- (Boostrix, Adacel) 2016-05-18 00:00:00 Completed Fay Seybold Pneumococcal Vaccine, Polysaccharide 2015-09-23 00:00:00 Completed Fay Seybold Pneumococcal Vaccine, Polysaccharide 2015-09-23 00:00:00 Completed Fay Seybold Pneumococcal Vaccine, Polysaccharide 2015-09-23 00:00:00 Completed Fay Seybold Pneumococcal Vaccine, Polysaccharide 2015-09-23 00:00:00 Completed Fay Seybold Pneumococcal Vaccine, Polysaccharide 2015-09-23 00:00:00 Completed Fay Seybold - External Pneumococcal Vaccine, Polysaccharide 2015-09-23 00:00:00 Completed Fay Seybold - External Pneumococcal Vaccine, Polysaccharide 2015-09-23 00:00:00 Completed Fay Seybold Pneumococcal Vaccine, Polysaccharide 2015-09-23 00:00:00 Completed Fay Seybold Shingles SQ (Zostavax) 2013-01-21 00:00:00 Completed Fay Seybold Shingles SQ (Zostavax) 2013-01-21 00:00:00 Completed Fay Seybold Shingles SQ (Zostavax) 2013-01-21 00:00:00 Completed Fay Seybold Shingles SQ (Zostavax) 2013-01-21 00:00:00 Completed Fay Seybold Shingles SQ (Zostavax) 2013-01-21 00:00:00 Completed Fay Seybold - External Shingles SQ (Zostavax) 2013-01-21 00:00:00 Completed Fay Seybold - External Shingles SQ (Zostavax) 2013-01-21 00:00:00 Completed Fay Seybold Shingles SQ (Zostavax) 2013-01-21 00:00:00 Completed Fay Jaimesold Covid-19 Vaccine (Pfizer), Mrna-lnp, Aladir Protein, Pf, 30mcg/0.3ml,IM Unknown Completed Fay Seybol d - External Tdap- (Boostrix, Adacel) Unknown Completed Fay Seybold - External Influenza Virus Vaccine, age 6 months and up Unknown Completed Fay Seybold - External Pneumococcal Vaccine, Polysaccharide Unknown Completed Fay Seybol d - External Pneumococcal Vaccine, Conjugate 13 Unknown Completed Fay Seybold - External Shingles SQ (Zostavax) Unknown Completed Fay Seybold - External Shingles IM (Shingrix) Unknown Completed Fay Seybold - External Influenza Virus Vaccine, Quadrivalent, High Dose, Age 65 And Up Unknown Completed Fay S eybold - External Influenza Virus Vaccine, High Dose, Age 65 And Up Unknown Completed Fay Seybold - External Pneumococcal Vaccine, Conjugate 20 Unknown Completed Fay Seybold - External Covid-19 Vaccine (Pfizer), Mrna-lnp, Aldair Protein, Pf, 30mcg/0.3ml,IM Unknown Completed Fay Seybol d - External Tdap- (Boostrix, Adacel) Unknown Completed Fay Seybold - External Influenza Virus Vaccine, age 6 months and up Unknown Completed Fay Seybold - External Pneumococcal Vaccine, Polysaccharide Unknown Completed Fay Seybol d - External Pneumococcal Vaccine, Conjugate 13 Unknown Completed Fay Seybold - External Shingles SQ (Zostavax) Unknown Completed Fay Seybold - External Shingles IM (Shingrix) Unknown Completed Fay Seybold - External Influenza Virus Vaccine, Quadrivalent, High Dose, Age 65 And Up Unknown Completed Fay S eybold - External Influenza Virus Vaccine, High Dose, Age 65 And Up Unknown Completed Fay Seybold - External Pneumococcal Vaccine, Conjugate 20 Unknown Completed Fay Seybold - External COVID-19 VACCINE(MODERNA)(FALL 2022)(12YRS+) Unknown Completed Fay Seybold - External RSV, Arexvy Unknown Completed Fay S eybold - External Covid-19 Vaccine (Pfizer), Mrna-lnp, Aldair Protein, Pf, 30mcg/0.3ml,IM Unknown Completed Fay Seybol d - External Tdap- (Boostrix, Adacel) Unknown Completed Fay Seybold - External Influenza Virus Vaccine, age 6 months and up Unknown Completed Fay Seybold - External Pneumococcal Vaccine, Polysaccharide Unknown Completed Fay Seybol d - External Pneumococcal Vaccine, Conjugate 13 Unknown Completed Fay Seybold - External Shingles SQ (Zostavax) Unknown Completed Fay Seybold - External Shingles IM (Shingrix) Unknown Completed Fay Seybold - External Influenza Virus Vaccine, Quadrivalent, High Dose, Age 65 And Up Unknown Completed Fay S eybold - External Influenza Virus Vaccine, High Dose, Age 65 And Up Unknown Completed Fay Seybold - External Pneumococcal Vaccine, Conjugate 20 Unknown Completed Fay Seybold - External COVID-19 VACCINE(MODERNA)(FALL 2022)(12YRS+) Unknown Completed Fay Seybold - External RSV, Arexvy Unknown Completed Fay S eybold - External Covid-19 Vaccine (Pfizer), Mrna-lnp, Aldair Protein, Pf, 30mcg/0.3ml,IM Unknown Completed Fay Seybol d - External Tdap- (Boostrix, Adacel) Unknown Completed Fay Seybold - External Influenza Virus Vaccine, age 6 months and up Unknown Completed Fay Seybold - External Pneumococcal Vaccine, Polysaccharide Unknown Completed Fay Seybol d - External Pneumococcal Vaccine, Conjugate 13 Unknown Completed Fay Seybold - External Shingles SQ (Zostavax) Unknown Completed Fay Seybold - External Shingles IM (Shingrix) Unknown Completed Fay Seybold - External Influenza Virus Vaccine, Quadrivalent, High Dose, Age 65 And Up Unknown Completed Fay S eybold - External Influenza Virus Vaccine, High Dose, Age 65 And Up Unknown Completed Fay Seybold - External Pneumococcal Vaccine, Conjugate 20 Unknown Completed Fay Seybold - External COVID-19 VACCINE(MODERNA)(FALL 2022)(12YRS+) Unknown Completed Fay Seybold - External RSV, Arexvy Unknown Completed Fay S eybold - External Covid-19 Vaccine (Pfizer), Mrna-lnp, Aldair Protein, Pf, 30mcg/0.3ml,IM Unknown Completed Fay Seybol d - External Tdap- (Boostrix, Adacel) Unknown Completed Fay Seybold - External Influenza Virus Vaccine, age 6 months and up Unknown Completed Fay Seybold - External Pneumococcal Vaccine, Polysaccharide Unknown Completed Fay [employer] d - External Pneumococcal Vaccine, Conjugate 13 Unknown Completed Fay Ayala - External Shingles SQ (Zostavax) Unknown Completed Fay Evansybold - External Shingles IM (Shingrix) Unknown Completed Fay Evansold - External Influenza Virus Vaccine, Quadrivalent, High Dose, Age 65 And Up Unknown Completed Fay porrasbold - External Influenza Virus Vaccine, High Dose, Age 65 And Up Unknown Completed Fay Evansold - External Pneumococcal Vaccine, Conjugate 20 Unknown Completed Fay Evansybold - External COVID-19 VACCINE(MODERNA)(FALL 2022)(12YRS+) Unknown Completed Fay Ayala - External RSV, Arexvy Unknown Completed Fay [facility] [employer] - External Covid-19 Vaccine (eROI), Mrna-lnp, Aldair Protein, Pf, 30mcg/0.3ml,IM Unknown Completed Fay [employer] - External Tdap- (Boostrix, Adacel) [facility] Influenza Virus Vaccine, age 6 months and up Unknown Completed [facility] - External Pneumococcal Vaccine, Polysaccharide Unknown Completed Fay [employer] d - External Pneumococcal Vaccine, Conjugate 13 Unknown Completed Fay Ayala - External Shingles SQ (Zostavax) Unknown Completed Fay Evansbairon - External Shingles IM (Shingrix) Unknown [facility] Influenza Virus Vaccine, Quadrivalent, High Dose, Age 65 And Up Unknown Completed Fay Watson bold - External Influenza Virus Vaccine, High Dose, Age 65 And Up Unknown [facility] Pneumococcal Vaccine, Conjugate 20 Unknown Completed Fay Evansold - External COVID-19 VACCINE(MODERNA)(FALL 2022)(12YRS+) Unknown Completed Fay Evansold - External RSV, Arexvy Unknown Completed Fay Watson [employer] - External Vital Signs Vital Name Observation Time Observation Value Comments S ource Systolic blood pressure 2024-01-25 14:04:00 133 mm[Hg] Fay Mayers ld - External Diastolic blood pressure 2024-01-25 14:04:00 74 mm[Hg] Fay Mayers ld - External Heart rate 2024-01-25 14:04:00 77 /min Kelse y Seybold - External Respiratory rate 2024-01-25 14:04:00 16 /min Fay Seybold - External Body height 2024-01-25 14:04:00 152.4 cm Ana ey Seybold - External Body weight 2024-01-25 14:04:00 66.225 kg Ana ey Seybold - External BMI 2024-01-25 14:04:00 28.51 kg/m2 Ana ey Seybold - External Oxygen saturation in Arterial blood by Pulse oximetry 2024-01-25 14:04:00 100 /min Fay Seybo ld - External Systolic blood pressure 2023-10-25 15:44:00 136 mm[Hg] Fay Seybo ld - External Diastolic blood pressure 2023-10-25 15:44:00 72 mm[Hg] Fay Seybo ld - External Heart rate 2023-10-25 15:44:00 78 /min Kelse y Seybold - External Body temperature 2023-10-25 15:44:00 36.89 Kalli Fay Seybold - External Respiratory rate 2023-10-25 15:44:00 16 /min Fay Seybold - External Body height 2023-10-25 15:44:00 152.4 cm Ana ey Seybold - External Body weight 2023-10-25 15:44:00 66.225 kg Ana ey Seybold - External BMI 2023-10-25 15:44:00 28.51 kg/m2 Ana ey Seybold - External Oxygen saturation in Arterial blood by Pulse oximetry 2023-10-25 15:44:00 97 /min Fay Seybo ld - External Systolic blood pressure 2023-07-25 14:22:00 140 mm[Hg] Fay Seybo ld - External Diastolic blood pressure 2023-07-25 14:22:00 70 mm[Hg] Fay Seybo ld - External Body temperature 2023-07-25 13:58:00 35.94 Kalli Fay Seybold - External Respiratory rate 2023-07-25 13:58:00 15 /min Fay Seybold - External Body height 2023-07-25 13:58:00 152.4 cm Ana ey Seybold - External Body weight 2023-07-25 13:58:00 67.132 kg Ana ey Seybold - External BMI 2023-07-25 13:58:00 28.90 kg/m2 Ana ey Seybold - External Systolic blood pressure 2023-03-08 18:24:00 130 mm[Hg] Fay Seybo ld - External Diastolic blood pressure 2023-03-08 18:24:00 64 mm[Hg] Fay Seybo ld - External Heart rate 2023-03-08 18:24:00 76 /min Nahidse y Seybold - External Body temperature 2023-03-08 18:24:00 36.61 Kalli Fay Seybold - External Respiratory rate 2023-03-08 18:24:00 18 /min Fay Seybold - External Body height 2023-03-08 18:24:00 152.4 cm Ana ey Seybold - External Body weight 2023-03-08 18:24:00 60.895 kg Ana ey Seybold - External BMI 2023-03-08 18:24:00 26.22 kg/m2 Ana ey Seybold - External Oxygen saturation in Arterial blood by Pulse oximetry 2023-03-08 18:24:00 98 /min Fya Seybo ld - External Systolic blood pressure 2023-02-20 20:05:00 118 mm[Hg] Fay Seybo ld - External Diastolic blood pressure 2023-02-20 20:05:00 64 mm[Hg] Fay Evansybo ld - External Heart rate 2023-02-20 20:05:00 76 /min Nahidse y Seybold - External Body temperature 2023-02-20 20:05:00 36.61 Kalli Fay Seybold - External Respiratory rate 2023-02-20 20:05:00 16 /min Fay Seybold - External Body height 2023-02-20 20:05:00 152.4 cm Ana ey Seybold - External Body weight 2023-02-20 20:05:00 61.689 kg Ana ey Seybold - External BMI 2023-02-20 20:05:00 26.56 kg/m2 Ana ey Seybold - External Oxygen saturation in Arterial blood by Pulse oximetry 2023-02-20 20:05:00 99 /min Fay Evansybo ld - External Systolic blood pressure 2022-11-10 18:06:00 128 mm[Hg] Fay Seybo ld - External Diastolic blood pressure 2022-11-10 18:06:00 66 mm[Hg] Fay Seybo ld - External Heart rate 2022-11-10 18:06:00 73 /min Kelse y Seybold - External Body temperature 2022-11-10 18:06:00 36.56 Kalli Fay Seybold - External Respiratory rate 2022-11-10 18:06:00 16 /min Fay Seybold - External Body height 2022-11-10 18:06:00 152.4 cm Ana ey Seybold - External Body weight 2022-11-10 18:06:00 65.772 kg Ana ey Seybold - External BMI 2022-11-10 18:06:00 28.32 kg/m2 Ana ey Seybold - External Oxygen saturation in Arterial blood by Pulse oximetry 2022-11-10 18:06:00 97 /min Fay Seybo ld - External Systolic blood pressure 2022-03-22 17:00:00 126 mm[Hg] Fay Seybo ld - External Diastolic blood pressure 2022-03-22 17:00:00 60 mm[Hg] Fay Seybo ld - External Heart rate 2022-03-22 17:00:00 82 /min Nahidse y Seybold - External Body temperature 2022-03-22 17:00:00 36.56 Kalli Fay Seybold - External Respiratory rate 2022-03-22 17:00:00 15 /min Fay Seybold - External Body height 2022-03-22 17:00:00 152.4 cm Ana ey Seybold - External Body weight 2022-03-22 17:00:00 66.225 kg Ana ey Seybold - External BMI 2022-03-22 17:00:00 28.51 kg/m2 Ana ey Seybold - External Systolic blood pressure 2021-10-07 15:40:00 128 mm[Hg] Fay Seybo ld Diastolic blood pressure 2021-10-07 15:40:00 68 mm[Hg] Fay Seybo ld Heart rate 2021-10-07 15:40:00 86 /min Kelse y Seybold Body temperature 2021-10-07 15:40:00 35.39 Kalli Fay Seybold Respiratory rate 2021-10-07 15:40:00 14 /min Fay Seybold Body height 2021-10-07 15:40:00 152.4 cm Ana ey Seybold Body weight 2021-10-07 15:40:00 63.957 kg Ana ey Seybold BMI 2021-10-07 15:40:00 27.54 kg/m2 Ana ey Seybold Systolic blood pressure 2021-08-23 15:48:00 142 mm[Hg] Fay Seybo ld Diastolic blood pressure 2021-08-23 15:48:00 76 mm[Hg] Fay Seybo ld Heart rate 2021-08-23 15:48:00 80 /min Kelse y Seybold Body temperature 2021-08-23 15:48:00 36.44 Kalli Fay Seybold Respiratory rate 2021-08-23 15:48:00 20 /min Fay Seybold Body height 2021-08-23 15:48:00 152.4 cm Ana ey Seybold Body weight 2021-08-23 15:48:00 64.32 kg Ana ey Seybold BMI 2021-08-23 15:48:00 27.69 kg/m2 Ana ey Seybold Oxygen saturation in Arterial blood by Pulse oximetry 2021-08-23 15:48:00 98 /min Fay Seybo ld Systolic blood pressure 2021-07-06 16:41:00 132 mm[Hg] Fay Seybo ld Diastolic blood pressure 2021-07-06 16:41:00 62 mm[Hg] Fay Seybo ld Heart rate 2021-07-06 16:41:00 83 /min Kelse y Seybold Body temperature 2021-07-06 16:41:00 36.17 Kalli Fay Seybold Respiratory rate 2021-07-06 16:41:00 16 /min Fay Seybold Body height 2021-07-06 16:41:00 152.4 cm Ana ey Seybold Body weight 2021-07-06 16:41:00 65.772 kg Ana ey Seybold BMI 2021-07-06 16:41:00 28.32 kg/m2 Ana ey Seybold Systolic blood pressure 2021-05-27 18:59:00 123 mm[Hg] Fay Seybo ld Diastolic blood pressure 2021-05-27 18:59:00 72 mm[Hg] Fay Seybo ld Heart rate 2021-05-27 18:59:00 74 /min Kelse y Seybold Body temperature 2021-05-27 18:59:00 36.78 Kalli Fay Seybold Respiratory rate 2021-05-27 18:59:00 15 /min Fay Seybold Body height 2021-05-27 18:59:00 152.4 cm Ana ey Seybold Body weight 2021-05-27 18:59:00 65.409 kg Ana ey Seybold BMI 2021-05-27 18:59:00 28.16 kg/m2 Ana ey Seybold Systolic blood pressure 2021-02-01 15:08:00 140 mm[Hg] Fay Seybo ld Diastolic blood pressure 2021-02-01 15:08:00 72 mm[Hg] Fay Seybo ld Heart rate 2021-02-01 15:08:00 94 /min Kelse y Seybold Body temperature 2021-02-01 15:08:00 36.28 Kalli Fay Seybold Respiratory rate 2021-02-01 15:08:00 16 /min Fay Seybold Body height 2021-02-01 15:08:00 152.4 cm Ana ey Seybold Body weight 2021-02-01 15:08:00 64.774 kg Ana ey Seybold BMI 2021-02-01 15:08:00 27.89 kg/m2 Ana ey Seybold Oxygen saturation in Arterial blood by Pulse oximetry 2021-02-01 15:08:00 96 /min Fay Seybo ld Systolic blood pressure 2021-02-01 15:08:00 140 mm[Hg] Fay Seybo ld Diastolic blood pressure 2021-02-01 15:08:00 72 mm[Hg] Fay Seybo ld Heart rate 2021-02-01 15:08:00 94 /min Kelse y Seybold Body temperature 2021-02-01 15:08:00 36.28 Kalli Fay Seybold Respiratory rate 2021-02-01 15:08:00 16 /min Fay Seybold Body height 2021-02-01 15:08:00 152.4 cm Ana ey Seybold Body weight 2021-02-01 15:08:00 64.774 kg Ana ey Seybold BMI 2021-02-01 15:08:00 27.89 kg/m2 Ana ey Seybold Oxygen saturation in Arterial blood by Pulse oximetry 2021-02-01 15:08:00 96 /min Fay Seybo ld Systolic blood pressure 2021-01-22 14:27:00 130 mm[Hg] Afy Seybo ld Diastolic blood pressure 2021-01-22 14:27:00 78 mm[Hg] Fay Seybo ld Heart rate 2021-01-22 14:27:00 82 /min Kelse y Seybold Body temperature 2021-01-22 14:27:00 36.61 Kalli Fay Seybold Respiratory rate 2021-01-22 14:27:00 14 /min Fay Seybold Body height 2021-01-22 14:27:00 152.4 cm Ana ey Seybold Body weight 2021-01-22 14:27:00 65.499 kg Ana ey Seybold BMI 2021-01-22 14:27:00 28.20 kg/m2 Ana ey Seybold Systolic blood pressure 2021-01-22 14:27:00 130 mm[Hg] Fay Seybo ld Diastolic blood pressure 2021-01-22 14:27:00 78 mm[Hg] Fay Seybo ld Heart rate 2021-01-22 14:27:00 82 /min Kelse y Seybold Body temperature 2021-01-22 14:27:00 36.61 Kalil Fay Seybold Respiratory rate 2021-01-22 14:27:00 14 /min Fay Seybold Body height 2021-01-22 14:27:00 152.4 cm Ana ey Seybold Body weight 2021-01-22 14:27:00 65.499 kg Ana ey Seybold BMI 2021-01-22 14:27:00 28.20 kg/m2 Ana Ayala Procedures Procedure Date / Time Performed Performing Clinicia n Source [facility] 2024-01-25 09:53:59 Stephanie Spain - External Encounters Start Date/Time End Date/Time Encounter Type Admission Type Attending [facility] Care Department Encounter ID Source 2021-07-22 09:13:03 Outpatient [facility] [id number] 2024-05-02 11:00:00 2024-05-02 11:00:00 Outpatient STEPHANIE SPAIN [id number] Fay Seybbairon 2024-04-12 13:00:00 2024-04-12 13:00:00 Outpatient YOSEF ELENA [id number] Fay Seybbairon 2024-04-05 14:00:00 2024-04-05 14:00:00 Outpatient YOSEF ELENA [id number] Fay Seybbairon 2024-03-04 15:00:00 2024-03-04 15:00:00 Outpatient JOHNNY DIAS [id number] Fay Seybbairon 2024-03-01 00:00:00 2024-03-01 00:00:00 Outpatient JOHNNY DIAS [id number] Fay Seybbairon 2024-02-20 00:00:00 2024-02-20 00:00:00 Outpatient STEPHANIE SPAIN [id number] Fay Seybold 2024-02-16 00:00:00 2024-02-16 00:00:00 Outpatient FAY MONROE [id number] Fay Seybbairon 2024-02-12 00:00:00 2024-02-12 00:00:00 Outpatient JOHNNY DIAS [id number] Fay Seybbairon 2024-01-29 00:00:00 2024-01-29 00:00:00 Outpatient FAY MONROE [id number] Fay Seevelina 2024-01-29 00:00:00 2024-01-29 00:00:00 [facility]patient [facility] [id number] [facility] 09:30:00 2024-01-25 09:30:00 Outpatient STEPHANIE SPAINROMULO MONROE [id number] Fay Evansybbairon 2024-01-25 00:00:00 2024-01-25 00:00:00 Outpatient MD [facility] [id number] [facility] 2023-12-12 00:00:00 2023-12-12 00:00:00 Outpatient PARAMJITSOILA [facility]AY [facility] [id number] [facility] 2023-11-03 14:15:00 2023-11-03 14:15:00 Outpatient PREZASTEPHANIE Watson [facility] MONRO[facility] [id number] [facility] 2023-10-30 00:00:00 2023-10-30 00:00:00 Outpatient PREZASTEPHANIE Watson FAY MONROE [id number] [facility] 2023-10-26 00:00:00 2023-10-26 00:00:00 Outpatient PREZASSTEPHANIE [facility]AY MONROE [id number] [facility] 2023-10-25 11:20:00 2023-10-25 11:20:00 Outpatient SURJIT [facility]AY MONRO[facility] [id number] [facility] 2023-10-25 10:30:00 2023-10-25 10:30:00 Outpatient PREZASSTEPHANIE FAY MONROE [id number] [facility] 2023-10-11 16:00:00 2023-10-11 16:00:00 Outpatient YOSEF ELENA [id number] [facility] 2023-10-04 00:00:00 2023-10-04 00:00:00 Outpatient PREMORAIMASYIFANSTEPHANIELORIN MONROE [id number] [facility] 2023-09-27 11:45:00 2023-09-27 11:45:00 Outpatient YOSEF ELENA [id number] [facility] 2023-09-22 00:00:00 2023-09-22 00:00:00 Outpatient MD FAY MARTIN [id number] Fay Seybbairon 2023-09-21 00:00:00 2023-09-21 00:00:00 Outpatient MD FAY MARTIN [id number] Fay Seybold 2023-09-18 00:00:00 2023-09-18 00:00:00 Outpatient STEPHANIE SPAIN [facility] [id number] [facility] 2023-08-19 00:00:00 2023-08-19 00:00:00 Outpatient FIONA ALLEN [id number] [facility] 2023-07-26 00:00:00 2023-07-26 00:00:00 Outpatient FAY MONROE [id number] [facility] 2023-07-26 00:00:00 2023-07-26 00:00:00 Outpatient FAY MONROE [id number] [facility] 2023-07-25 09:50:00 2023-07-25 09:50:00 Outpatient LAB90 [facility] [id number] [facility] 2023-07-25 09:00:00 2023-07-25 09:00:00 Outpatient PREZASSTEPHANIE [facility] [id number] [facility] 2023-07-08 00:00:00 2023-07-08 00:00:00 Outpatient PREZASTEPHANIE Watson [facility] [id number] [facility] 2023-07-07 00:00:00 2023-07-07 00:00:00 Outpatient FAY MONROE [id number] [facility] Seybold 2023-06-10 00:00:00 2023-06-10 00:00:00 Outpatient SOILA YUSUF [id number] [facility] 2023-05-26 00:00:00 2023-05-26 00:00:00 Outpatient FIONA ALLEN [id number] [facility] 2023-03-13 00:00:00 2023-03-13 00:00:00 Outpatient JAMESON JOHNSON [id number] [facility] 2023-03-13 00:00:00 2023-03-13 00:00:00 Outpatient JAMESON JOHNSON FAY [id number] [facility] 2023-03-11 00:00:00 2023-03-11 00:00:00 Outpatient PARAMJITSOILA FAY MONROE [id number] [facility] 2023-03-10 10:55:00 2023-03-10 10:55:00 Outpatient LAB90 FAY MONROE [id number] [facility] 2023-03-09 00:00:00 2023-03-09 00:00:00 Outpatient STEPHANIE SPAIN FAY [id number] [facility] 2023-03-08 13:30:00 2023-03-08 13:30:00 Outpatient JAMESON JOHNSONROMULO MONROE [id number] [facility] 2023-03-08 12:35:00 2023-03-08 12:35:00 Outpatient LAB90 FAY MONROE [id number] [facility] 2023-03-06 13:30:00 2023-03-06 13:30:00 Outpatient JAMESON JOHNSON FAY MONROE [id number] [facility] 2023-02-27 11:00:00 2023-02-27 11:00:00 Outpatient PREZASTEPHANIE WatsonROMULO MONROE [id number] [facility] 2023-02-27 00:00:00 2023-02-27 00:00:00 Outpatient FIONA ALLEN FAY MONROE [id number] [facility] 2023-02-23 00:00:00 2023-02-23 00:00:00 Outpatient PARAMJITSOILA DENSON AFY MONROE [id number] [facility] 2023-02-20 15:30:00 2023-02-20 15:30:00 Outpatient JAMESON JOHNSON [facility]AY [facility]ROE [id number] [facility]23-02-17 15:30:00 2023-02-17 15:30:00 Outpatient CHANA DA SILVA [id number] [facility] 2023-02-17 00:00:00 2023-02-17 00:00:00 Outpatient SOILA YUSUFSEY [id number] [facility] 2023-02-17 00:00:00 2023-02-17 00:00:00 Outpatient PREZAS, STEPHANIE FAY FAY [id number] [facility] 2023-02-17 00:00:00 2023-02-17 00:00:00 Outpatient HUNDL, JOHNNY FAY MONROE [id number] [facility] 2023-02-09 00:00:00 2023-02-09 00:00:00 Outpatient PREZAS, STEPHANIE FAY FAY [id number] [facility] 2023-02-06 00:00:00 2023-02-06 00:00:00 Outpatient PREZAS, STEPHANIE FAY MONROE [id number] [facility] 2023-01-14 00:00:00 2023-01-14 00:00:00 Outpatient PREZAS, STEPHANIE FAY MONROE [id number] [facility] 2023-01-05 00:00:00 2023-01-05 00:00:00 Outpatient PREZAS, STEPHANIE FAY [facility] [id number] [facility] 2023-01-01 00:00:00 2023-01-01 00:00:00 Outpatient PREZAS, STEPHANIE FAY MONROE [id number] [facility] 2022-12-11 00:00:00 2022-12-11 00:00:00 Outpatient ALEJANDRO FIONA FAY MONROE [id number] [facility] 2022-11-28 00:00:00 2022-11-28 00:00:00 Outpatient PREZAS, STEPHANIE FAY MONROE [id number] [facility] 2022-11-27 00:00:00 2022-11-27 00:00:00 Outpatient PREZAS, STEPHANIE FAY MONROE [id number] [facility] 2022-11-25 10:55:00 2022-11-25 10:55:00 Outpatient LAB90 FAY MONROE [id number] [facility] 2022-11-25 00:00:00 2022-11-25 00:00:00 Outpatient PREZAS, STEPHANIE FAY MONROE [id number] [facility] 2022-11-24 00:00:00 2022-11-24 00:00:00 Outpatient MD FAY MARTIN [id number] [facility] 2022-11-19 00:00:00 2022-11-19 00:00:00 Outpatient PREZASTEPHANIE Watson FAY MONROE [id number] [facility] 2022-11-10 14:30:00 2022-11-10 14:30:00 Outpatient LAB90 FAY MONROE [id number] [facility] 2022-11-10 13:30:00 2022-11-10 13:30:00 Outpatient THOMAS FREEMAN [id number] [facility] 2022-11-10 00:00:00 2022-11-10 00:00:00 Outpatient FAY MONROE [id number] [facility] 2022-11-10 00:00:00 2022-11-10 00:00:00 Outpatient PREZASTEPHANIE Watson FAY OMNROE [id number] [facility] 2022-11-01 00:00:00 2022-11-01 00:00:00 Outpatient FIONA ALLEN [id number] [facility] 2022-11-01 00:00:00 2022-11-01 00:00:00 Outpatient PREZAShirleySTEPHANIE [id number] [facility] 2022-10-05 00:00:00 2022-10-05 00:00:00 Outpatient SOILA YUSUF [id number] [facility] 2022-09-24 00:00:00 2022-09-24 00:00:00 Outpatient FIONA ALLEN [id number] [facility] 2022-08-06 00:00:00 2022-08-06 00:00:00 Outpatient SOILA YUSUF [id number] [facility] 2022-05-20 00:00:00 2022-05-20 00:00:00 Outpatient PRESTEPHANIE CARBAJAL [id number] [facility] 2022-05-19 00:00:00 2022-05-19 00:00:00 Outpatient PREZASTEPHANIE Watson FAY [id number] [facility] 2022-04-27 00:00:00 2022-04-27 00:00:00 Outpatient FAY MONROE [id number] [facility] 2022-04-21 00:00:00 2022-04-21 00:00:00 Outpatient PREZASSTEPHANIE FAY FAY [id number] [facility] 2022-04-13 13:30:00 2022-04-13 13:30:00 Outpatient PREZAS, STEPHANIE FAY MONROE [id number] [facility] 2022-04-13 00:00:00 2022-04-13 00:00:00 Outpatient MORGAN YUSUFAN FAY MONROE [id number] [facility] 2022-03-24 00:00:00 2022-03-24 00:00:00 Outpatient PREZASSTEPHANIE FAY MONROE [id number] [facility] 2022-03-22 11:15:00 2022-03-22 11:15:00 Outpatient PREZASSTEPHANIE FAY FAY [id number] [facility] 2022-02-24 13:30:00 2022-02-24 13:30:00 Outpatient PREZASSTEPHANIE FAY MONROE [id number] [facility] 2022-01-11 14:30:00 2022-01-11 14:30:00 Outpatient LAB FAY MONROE [id number] [facility] 2022-01-11 13:30:00 2022-01-11 14:15:00 Office Visit Stephanie Spain Chana Correa [id number] [facility] 2022-01-07 00:00:00 2022-01-07 00:00:00 Outpatient MORGAN YUSUFAN FAY MONROE [id number] [facility] 2022-01-06 10:30:00 2022-01-06 10:30:00 Outpatient SURJIT MONROE [id number] [facility] 2022-01-06 00:00:00 2022-01-06 00:00:00 Outpatient SOILA YUSUF [id number] [facility] 2021-12-14 00:00:00 2021-12-14 00:00:00 Outpatient STEPHANIE SPANI [id number] [facility] 2021-12-10 00:00:00 2021-12-10 00:00:00 Outpatient PREZASTEPHANIE Watson [id number] [facility] 2021-12-09 00:00:00 2021-12-09 00:00:00 Outpatient PREZAShirley, STEPHANIE MONROE [id number] [facility] 2021-12-08 11:15:00 2021-12-08 11:45:00 Office Visit Stephanie Spain Jackson 1.2.840.114 [id number] [facility] 2021-12-08 00:00:00 2021-12-08 00:00:00 Outpatient SOILA YUSUF [id number] [facility] 2021-12-01 11:10:00 2021-12-01 11:10:00 Outpatient FAY MONROE [id number] [facility] 2021-12-01 10:30:00 2021-12-01 10:40:00 Office Visit Vern Ferreira 1.2.840.114 350.1.13.13 [id number] [facility] 2021-11-17 10:30:00 2021-11-17 10:40:00 Office Visit Vern Ferreira 1.2.840.114 [id number] [facility] 2021-11-04 10:45:00 2021-11-04 10:45:00 Outpatient PREZAS, STEPHANIE FAY FAY [id number] [facility] 2021-10-27 10:00:00 2021-10-27 10:00:00 Outpatient VERN FERREIRA FAY [id number] [facility] 2021-10-25 00:00:00 2021-10-25 00:00:00 Outpatient VERN FERREIRA FAY [id number] [facility] 2021-10-18 00:00:00 2021-10-18 00:00:00 Outpatient STEPHANIE SPAIN FAY [id number] [facility] 2021-10-07 11:00:00 2021-10-07 11:30:00 Office Visit Stephanie Spain 1.2.840.114 [id number] [facility] 2021-10-05 11:15:00 2021-10-05 11:15:00 Outpatient SOILA YUSUF FAY MONROE [id number] [facility] 2021-10-01 00:00:00 2021-10-01 00:00:00 Outpatient PARAMJITSOILA DENSON FAY MONROE [id number] [facility] 2021-10-01 00:00:00 2021-10-01 00:00:00 Outpatient PARAMJITMORGAN DENSONFRANCES MONROE [id number] [facility] 2021-09-20 15:15:00 2021-09-20 15:15:00 Outpatient PARAMJITMORGAN DENSONFRANCES MONROE [id number] [facility] 2021-09-17 00:00:00 2021-09-17 00:00:00 Outpatient PARAMJITMORGAN DENSONFRANCES MONROE [id number] [facility] 2021-09-15 00:00:00 2021-09-15 00:00:00 Outpatient PARAMJITMORGAN DENSONFRANCES MONROE [id number] [facility] 2021-08-23 11:00:00 2021-08-23 11:45:00 Office Visit Soila Yusuf Trumbull 1.2.840.114 [id number] [facility] 2021-08-23 00:00:00 2021-08-23 00:00:00 Outpatient PARAMJITSOILA DENSON FAY MONROE [id number] [facility] 2021-07-27 00:00:00 2021-07-27 00:00:00 Outpatient PARAMJITMORGANFRANCES MONROE [id number] [facility] 2021-07-23 00:00:00 2021-07-23 00:00:00 Outpatient PARAMJITMORGANFRANCES MONROE [id number] [facility] 2021-07-23 00:00:00 2021-07-23 00:00:00 Outpatient SOILA YUSUF [id number] [facility] 2021-07-23 00:00:00 2021-07-23 00:00:00 Outpatient SOILA YUSUF [id number] [facility] 2021-07-22 00:00:00 2021-07-22 00:00:00 Outpatient PARAMJIT, SOILA MONROE [id number] [facility] 2021-07-19 00:00:00 2021-07-19 00:00:00 Outpatient FAY MONROE [id number] [facility] 2021-07-19 00:00:00 2021-07-19 00:00:00 Outpatient SOILA YUSUF [id number] [facility] 2021-07-17 00:00:00 2021-07-17 00:00:00 Outpatient PARAMJIT SOILA MONROE [id number] [facility] 2021-07-12 00:00:00 2021-07-12 00:00:00 Outpatient SOILA YUSUF [id number] [facility] 2021-07-06 11:30:00 2021-07-06 11:30:00 Outpatient LAB90 FAY MONROE [id number] [facility] 2021-07-06 11:00:00 2021-07-06 11:15:00 Office Visit Soila Yusuf 1.2.840.114 350.1.13.13 [id number] [id number] [facility]ay [facility] 2021-05-31 00:00:00 2021-05-31 00:00:00 Outpatient JOHNNY DIAS FAY [id number] [facility] 2021-05-27 13:30:00 2021-05-27 14:00:00 Office Visit Johnny Dias 1.2.840.114 350.1.13.13 [id number] [id number] [facility]ay [facility] 2021-02-08 00:00:00 2021-02-08 00:00:00 Outpatient SOILA YUSUF FAY FAY [id number] [facility] 2021-02-02 00:00:00 2021-02-02 00:00:00 Outpatient JOHNNY DIAS FAY MONROE [id number] [facility] 2021-02-01 10:05:53 2021-02-01 10:35:53 Office Visit Johnny Dias 1.2.840.114 350.1.13.13 [id number] [facility] 2021-02-01 10:05:53 2021-02-01 10:35:53 Office Visit Johnny Dias 1.2.840.114 350.1.13.13 [id number] 2021-01-22 09:22:01 2021-01-22 09:52:01 Office Visit Johnny Dias 1.2.840.114 350.1.13.13 [id number] [facility] 2021-01-22 09:22:01 2021-01-22 09:52:01 Office Visit Johnny Dias 1.2.840.114 350.1.13.13 [id number] [id number] 2021-01-21 00:00:00 2021-01-21 00:00:00 Outpatient SOILA YUSUF FAY MONROE [id number] [facility] 2021-01-04 09:30:00 2021-01-04 09:30:00 Outpatient PARAMJITMORGAN DENSONFRANCES MONROE [id number] [facility] 2021-01-04 00:00:00 2021-01-04 00:00:00 Outpatient MD FAY MARTIN [id number] [facility] 2020-12-14 10:15:00 2020-12-14 10:15:00 Outpatient LAB90 FAY MONROE [id number] [facility] 2020-12-14 09:15:00 2020-12-14 09:15:00 Outpatient PARAMJITMORGAN DENSONFRANCES MONROE [id number] [facility] 2020-12-11 10:30:00 2020-12-11 10:30:00 Outpatient SOILA YUSUF FAY MONROE [id number] [facility] 2020-12-09 11:55:00 2020-12-09 11:55:00 Outpatient LAB90 FAY MONROE [id number] [facility] Results Test Description Test Time Test Comments Results Result Co mments Source [facility] - External Notes Date/Time Note Provider Source 2023-10-25 10:46:30 Chief Complaint Patient presents with OTHER [facility] 2023-09-27 11:31:45 Chief Complaint Patient presents with Skin Lesion [facility]
--- NOTE | 2024-03-01 14:38 | RAD REPORT ---
EXAMINATION: Stone Protocol CLINICAL INDICATION: Abdominal pain. Back pain TECHNIQUE: CT abdomen and pelvis was performed, without IV contrast, as per department protocol. Oral contrast not given. Axial, sagittal and coronal reconstructions were obtained. One or more of the following dose reduction techniques were used: Automated exposure control, adjustment of the mA and k V according to the patient size, and iterative reconstruction. Unless otherwise specified, incidental findings do not require dedicated imaging follow-up. COMPARISON: 2020 FINDINGS: The lack of intravenous and oral contrast limits the sensitivity of this exam for evaluation of solid visceral organs, vascular structures, and bowel A renal calculus not seen. No ureteral calculus. A bladder calculus not noted. No hydronephrosis Liver, spleen, pancreas and adrenals grossly normal Diverticula stem from colon without evidence of diverticulitis.. Normal appendix. No adnexal mass. There is small hiatal hernia IMPRESSION: Negative for a genitourinary calculus
[2024-03-01] MEDS ORDERED: ONDANSETRON 4 MG/2 ML VIAL ONE (15:33)
[2024-03-01] MEDS ORDERED: MORPHINE 4 MG/ML SYR ONE (15:33)
[2024-03-01] MEDS ORDERED: METHOCARBAMOL 1,000 MG/10 ML VIAL ONE (15:33)
[2024-03-01] MEDS ORDERED: LIDOCAINE 4% PATCH ONE (15:34)
[2024-03-01] MEDS ORDERED: NA CHLORIDE 0.9% 100 ML ONE (15:34)
[2024-03-01 15:39] LABS: Absolute Basophils 0.1 K/uL (0-0.5); Absolute Eosinophils 0.2 K/uL (0-0.5); Absolute Lymphocytes (CBC) 2.9 K/uL (0.7-4.9); Absolute Monocytes 0.9 K/uL (0.1-1.3); Absolute Neutrophil 4.8 K/uL (1.8-8.0); Basophils % 0.8 % (0-1.3); Eosinophils % 2.6 % (0-4.4); Hematocrit 43.8 % (36.0-45.0); Hemoglobin 14.5 g/dL (12.0-15.0); Lymphocytes % 32.6 % (15.3-44.8); MCHC 33.1 g/dL (32.0-36.0); MCV 93.8 fL (80-100); MPV 7.4 fL (7.6-11.3); Monocytes % 10.3 % (3.3-12.3); Neutrophils % 53.7 % (41.7-73.7); Platelets 280 thou/uL (152-406); RBC Red Blood Cell Count 4.67 M/uL (3.86-4.86); Red Cell Distribution Width 13.4 % (12.1-15.2)
[2024-03-01 15:40] LABS: Specific Gravity 1.012 (1.005-1.030); Urine Bilirubin NEGATIVE (Negative); Urine Blood Negative (Negative); Urine Clarity Clear (Clear); Urine Color Light-Yellow (Yellow); Urine Glucose NEGATIVE (Negative); Urine Ketones NEGATIVE (Negative); Urine Microscopic Reflex YN NO UMIC; Urine Nitrite NEGATIVE (Negative); Urine Protein NEGATIVE (Negative); Urine Urobilinogen Normal (Normal); Urine pH 6.5 (5.0-7.0)
[2024-03-01 15:55] LABS: Albumin 4.4 g/dL (3.4-5.0); Albumin/Globulin Ratio 1.2 (1.1-1.8); Anion Gap 6.6 mEq/L (5.0-15.0); Bilirubin Total 0.9 mg/dL (0.2-1.0); Globulin 3.6 g/dL (2.3-3.5); Potassium 4.6 mEq/L (3.5-5.1)
--- NOTE | 2024-03-01 16:22 | ER ---
Nurse's Notes [facility] Name: Sariah Castillo Age: 78 yrs Sex: Female : 1945 Arrival Date: 03/01/2024 Time: 13:28 Bed 20 Private MD: Diagnosis: Dorsalgia, unspecified Presentation: 03/01 13:56 Chief complaint: Patient states: she has been having left middle back pain for approx ap3 one week. patient states she has been working in her yard, and doesn't know if she has "aggravated it" or not. patient currently rates her pain as a 9/10 on the pain scale. Coronavirus screen: At this time, the client does not indicate any symptoms associated with coronavirus-19. Ebola Screen: No symptoms or risks identified at this time. Initial Sepsis Screen: Does the patient meet any 2 criteria? No. Patient's initial sepsis screen is negative. Does the patient have a suspected source of infection? No. Patient's initial sepsis screen is negative. Risk Assessment: Do you want to hurt yourself or someone else? Patient reports no desire to harm self or others. Onset of symptoms is unknown. Transition of care: patient was not received from another setting of care. 13:56 Method Of Arrival: Ambulatory ap3 13:56 Acuity: JAVIER 3 ap3 Triage Assessment: 13:58 General: Appears in no apparent distress. Behavior is calm, cooperative, appropriate ap3 for age. Pain: Complains of pain in left low back and left mid back Pain currently is 9 out of 10 on a pain scale. Neuro: Level of Consciousness is awake, alert, obeys commands, Oriented to person, place, time, situation, Gait is steady. Cardiovascular: Patient's skin is warm and dry. Respiratory: Airway is patent Respiratory effort is even, unlabored, Respiratory pattern is regular, symmetrical. Musculoskeletal: Range of motion: intact in all extremities. Historical: - Allergies: 13:58 Aspirin; ap3 13:58 medication given in general anesthesia made her vomit; ap3 - PMHx: 13:58 diabetes mellitus; High Cholesterol; Hypertensive disorder; Spasmodic Dysphonia; ap3 - Immunization history:: Client reports receiving the 2nd dose of the Covid vaccine. - Infectious Disease History:: Denies. - Social history:: Smoking status: Patient denies any tobacco usage or history of. Screenin:59 [facility] ED Fall Risk Assessment (Adult) History of falling in the last 3 months, ap3 including since admission No falls in past 3 months (0 pts) Confusion or Disorientation No (0 pts) Intoxicated or Sedated No (0 pts) Impaired Gait No (0 pts) Mobility Assist Device Used No (0 pt) Altered Elimination No (0 pt) Score/Fall Risk Level 0 - 2 = Low Risk Oriented to surroundings, Maintained a safe environment, Educated pt \\T\\ family on fall prevention, incl call for assistance when getting out of bed, Assessed \\T\\ reinforced patient's understanding of fall precautions, Hourly rounding (assess needs \\T\\ fall precautionary measures) done, Used ambulatory aids as needed (educated on \\T\\ assisted with), Used gait belt as appropriate. Abuse screen: Denies threats or abuse. Nutritional screening: No deficits noted. Tuberculosis screening: No symptoms or risk factors identified. Assessment: 17:05 General: Appears uncomfortable, well groomed, well developed, well nourished, Behavior me1 is calm, cooperative, appropriate for age, Reports she has been having left middle back pain for approx one week. patient states she has been working in her yard, and doesn't know if she has "aggravated it" or not. patient currently rates her pain as a 9/10 on the pain scale. Pain: Complains of pain in back and left mid back and left low back Pain does not radiate. Pain currently is 9 out of 10 on a pain scale. Quality of pain is described as sharp, Pain began gradually, Is continuous. Neuro: Level of Consciousness is awake, alert, obeys commands, Oriented to person, place, time, situation, Appropriate for age. Cardiovascular: Patient's skin is warm and dry. Respiratory: Airway is patent Respiratory effort is even, unlabored, Respiratory pattern is regular, symmetrical. GI: No signs and/or symptoms were reported involving the gastrointestinal system. : No signs and/or symptoms were reported regarding the genitourinary system. EENT: No signs and/or symptoms were reported regarding the EENT system. Derm: Skin is intact, is healthy with good turgor, Skin is pink, warm \\T\\ dry. Musculoskeletal: Reports pain in back and left mid back and left low back. Vital Signs: 13:56 BP 179 / 77; Pulse 70; Resp 17; Temp 97.5; Pulse Ox 100% ; Weight 65.77 kg; Pain 9/10; ap3 15:49 Pain 3/10; me1 16:00 BP 161 / 98; Pulse 69; Resp 16; Pulse Ox 96% ; me1 16:00 BP 154 / 84; Pulse 66; Resp 16; Temp 98.4; Pulse Ox 97% ; me1 13:56 Pain Scale: Adult ap3 15:49 Pain Scale: Adult me1 ED Course: 13:31 Patient arrived in ED. mr 13:35 Richard Isaac PA is PHCP. cp 13:35 Richard Orellana MD is Attending Physician. cp 13:58 Triage completed. ap3 13:59 Arm band placed on right wrist. ap3 14:16 CT Stone Protocol In Process Unspecified. EDMS 15:18 Angeli Canales, SEMAJ is Primary Nurse. me1 15:29 CBC with Diff Sent. me1 15:29 CMP Sent. me1 15:30 Lipase Sent. me1 15:30 Urinalysis w/ reflexes Sent. me1 15:30 Initial lab(s) drawn, by ia, sent to lab. Urine collected: clean catch specimen, clear. me1 Inserted saline lock: 22 gauge in right antecubital area, using aseptic technique. 17:05 Patient has correct armband on for positive identification. Bed in low position. Call me1 light in reach. Side rails up X2. Provided Education on: POC. Verbalized understanding. . Client placed on continuous cardiac and pulse oximetry monitoring. NIBP monitoring applied. Pulse ox on. NIBP on. 17:05 No provider procedures requiring assistance completed. me1 17:09 IV discontinued, intact, bleeding controlled, No redness/swelling at site. Pressure me1 dressing applied. Administered Medications: 15:47 Drug: Lidoderm Topical Patch 5 % (700 mg/patch) 1 patches Topical once; leave on for 12 me1 hours; cover most painful area; may cut into smaller pieces {Note: left lower back.} Route: Topical; Site: affected area; 16:27 Follow up: Response: No adverse reaction; Pain is decreased me1 15:48 Drug: morphine IVP or IV 4 mg IVP once over 4 mins Route: IVP; Infused Over: 4 mins; me1 Site: right antecubital; 15:49 Follow up: Pain 3/10 Adult; Response: No adverse reaction; Pain is decreased me1 15:48 Drug: Ondansetron IVP 4 mg IVP once; over 2 minutes Route: IVP; Site: right antecubital;me1 15:48 Follow up: Response: No adverse reaction; Nausea is decreased me1 15:48 Drug: Methocarbamol IVPB 1 grams IVPB once over 1 hrs; (mix in NS 100 mL) Route: IVPB; me1 Infused Over: 1 hrs; Site: right antecubital; 16:51 Follow up: Response: No adverse reaction; IV Status: Completed infusion; IV Intake: me1 100ml 16:51 Drug: Decadron - Dexamethasone IVP 10 mg IVP once Route: IVP; Site: right antecubital; me1 17:08 Follow up: Response: No adverse reaction me1 Medication: 17:05 VIS not applicable for this client. me1 Intake: 16:51 IV: 100ml; Total: 100ml. me1 Outcome: 16:22 Discharge ordered by MD. cp 17:09 Discharged to home ambulatory, with family, me1 17:09 Condition: stable 17:09 Discharge instructions given to patient, family, Instructed on discharge instructions, follow up and referral plans. medication usage, Demonstrated understanding of instructions, follow-up care, medications, Prescriptions given X 4, 17:10 Patient left the ED. me1 Signatures: Dispatcher [employer] EDMD Jagdeep Zahida, Reg Reg mr Richard Isaac, Kaila Frances cp, RN RN ap3 Angeli Canales RN RN me1 Corrections: (The following items were deleted from the chart) 16:28 13:56 Chief complaint: Patient states: she has been having left middle back pain for me1 approx one week. patient states she has been working in her yard, and doesn't know if she has "aggravated it" or not. patient currently rates her pain as a 9/10 on the pain scale ap3 17:05 13:56 Chief complaint: Patient states: she has been having left middle back pain for me1 approx one week. patient states she has been working in her yard, and doesn't know if she has "aggravated it" or not. patient currently rates her pain as a 9/10 on the pain scale me1
--- NOTE | 2024-03-01 16:22 | EDPHYS ---
Physician Documentation [facility] Name: Sariah Castillo Age: 78 yrs Sex: Female : 1945 Arrival Date: 03/01/2024 Time: 13:28 Bed 20 Private MD: ED Physician Richard Orellana HPI: 03/01 14:00 This 78 yrs old Female presents to ER via Ambulatory with complaints of Back Pain. cp 14:00 The patient presents with pain that is acute, with no known mechanism of injury. cp 14:00 The symptoms are located in the left mid back. cp 14:00 Onset: The symptoms/episode began/occurred 1 week(s) ago. The pain does not radiate. cp Associated signs and symptoms: The patient has no apparent associated signs or symptoms. The problem was sustained denies any trauma. Severity of symptoms: in the emergency department the symptoms a " 9" out of "10". Historical: - Allergies: 13:58 Aspirin; ap3 13:58 medication given in general anesthesia made her vomit; ap3 - PMHx: 13:58 diabetes mellitus; High Cholesterol; Hypertensive disorder; Spasmodic Dysphonia; ap3 - Immunization history:: Client reports receiving the 2nd dose of the Covid vaccine. - Infectious Disease History:: Denies. - Social history:: Smoking status: Patient denies any tobacco usage or history of. ROS: 14:05 Constitutional: HX per hpi cp 14:05 Constitutional: Negative for body aches, chills, fever, cp 14:05 Abdomen/GI: Negative for abdominal pain, nausea, vomiting, and diarrhea, bowel incontinence, 14:05 Back: Positive for pain at rest, pain with movement, 14:05 : Negative for urinary symptoms, bladder incontinence, 14:05 Neuro: Negative for numbness, weakness, 14:05 All other systems are negative, Exam: 14:05 Head/Face: Normocephalic, atraumatic. cp 14:05 Constitutional: The patient appears in no acute distress, alert, awake, non-toxic, well developed, well nourished, uncomfortable, 14:05 Chest/axilla: Inspection: normal, 14:05 Cardiovascular: Rate: normal, Rhythm: regular, 14:05 Respiratory: the patient does not display signs of respiratory distress, Respirations: normal, no use of accessory muscles, no retractions, labored breathing, is not present, Breath sounds: are clear throughout, no decreased breath sounds, no stridor, no wheezing, 14:05 Abdomen/GI: Inspection: abdomen appears normal, Palpation: abdomen is soft and non-tender, in all quadrants, 14:05 Back: pain, that is severe, of the left subscapular area, left low back and left mid back, ROM is painful, with all movement, 14:05 Neuro: Orientation: to person, place \\T\\ time. Mentation: is normal, Motor: moves all fours, strength is normal, Gait: is steady, Vital Signs: 13:56 BP 179 / 77; Pulse 70; Resp 17; Temp 97.5; Pulse Ox 100% ; Weight 65.77 kg; Pain 9/10; ap3 15:49 Pain 3/10; me1 16:00 BP 161 / 98; Pulse 69; Resp 16; Pulse Ox 96% ; me1 16:00 BP 154 / 84; Pulse 66; Resp 16; Temp 98.4; Pulse Ox 97% ; me1 13:56 Pain Scale: Adult ap3 15:49 Pain Scale: Adult me1 MDM: 16:02 Medical Screening Exam initiated bibi 16:22 Data reviewed: vital signs, nurses notes, lab test result(s), radiologic studies, CT cp scan, and as a result, I will discharge patient. 16:22 Differential diagnosis: Cholelithiasis chronic back pain, Pyelonephritis ruptured disc. cp I considered the following discharge prescriptions or medication management in the emergency department Medications were administered in the Emergency Department. See JUL. 03/01 13:57 Order name: Urinalysis w/ reflexes; Complete Time: 16:06 03/01 13:57 Order name: CBC with Diff; Complete Time: 16:06 03/01 13:57 Order name: CMP; Complete Time: 16:06 03/01 13:57 Order name: Lipase; Complete Time: 16:06 03/01 13:57 Order name: CT Stone Protocol; Complete Time: 15:16 cp 03/01 15:16 Interpretation: Report reviewed. 03/01 13:57 Order name: IV Saline Lock; Complete Time: 15:29 03/01 13:57 Order name: Labs collected and sent; Complete Time: 15:29 cp Administered Medications: 15:47 Drug: Lidoderm Topical Patch 5 % (700 mg/patch) 1 patches Topical once; leave on for 12 me1 hours; cover most painful area; may cut into smaller pieces {Note: left lower back.} Route: Topical; Site: affected area; 16:27 Follow up: Response: No adverse reaction; Pain is decreased me1 15:48 Drug: morphine IVP or IV 4 mg IVP once over 4 mins Route: IVP; Infused Over: 4 mins; me1 Site: right antecubital; 15:49 Follow up: Pain 3/10 Adult; Response: No adverse reaction; Pain is decreased me1 15:48 Drug: Ondansetron IVP 4 mg IVP once; over 2 minutes Route: IVP; Site: right antecubital;me1 15:48 Follow up: Response: No adverse reaction; Nausea is decreased me1 15:48 Drug: Methocarbamol IVPB 1 grams IVPB once over 1 hrs; (mix in NS 100 mL) Route: IVPB; me1 Infused Over: 1 hrs; Site: right antecubital; 16:51 Follow up: Response: No adverse reaction; IV Status: Completed infusion; IV Intake: me1 100ml 16:51 Drug: Decadron - Dexamethasone IVP 10 mg IVP once Route: IVP; Site: right antecubital; me1 17:08 Follow up: Response: No adverse reaction me1 Disposition Summary: 03/01/24 16:22 Discharge Ordered Notes: Location: Home cp Problem: new cp Symptoms: have improved cp Condition: Stable cp Diagnosis - Dorsalgia, unspecified cp Followup: cp - With: Private Physician - When: 2 - 3 days - Reason: Recheck today's complaints Discharge Instructions: - Discharge Summary Sheet cp - Musculoskeletal Pain cp - Back Exercises cp Forms: - Medication Reconciliation Form cp - Antibiotic Education cp - Prescription Opioid Use cp - Patient Portal Instructions cp - Leadership Thank You Letter cp Prescriptions: - Lidoderm 5 % Topical adhesive patch, medicated - apply 1 package TOPICAL route per package directions leave on most painful area cp for up to 12 hrs; 15 patch; Refills: 0, Product Selection Permitted - Zofran 4 mg Oral Tablet - take 1 tablet ORAL route every 12 hours As needed; 20 tablet; Refills: 0, cp Product Selection Permitted - Medrol (Vinay) 4 mg Oral Tablets, Dose Pack - take 1 tablet ORAL route as directed - follow package instructions; 1 packet; cp Refills: 0, Product Selection Permitted - methocarbamol 750 mg Oral tablet - take 1 tablet ORAL route 3 times per day; 30 tablet; Refills: 0, Product cp Selection Permitted Signatures: Dispatcher [employer] Richard Holt MD MD cha Page, Corey, PA Kaila Coombs cp, RN RN ap3 Angeli Canales RN RN me1
[2024-03-01] MEDS ORDERED: dexAMETHasone 10 MG/ML VIAL ONE (16:46)
[2024-03-01 19:24] VITALS: BP 154/84; TEMP 98.4; O2SAT 97
== END 2024-03-01 17:10 | disposition home or self-care (01) ==
LOC: ER 13:28
DX: M54.9 Dorsalgia, unspecified (principal); E11.9 Type 2 diabetes mellitus without complications; I10 Essential (primary) hypertension
CPT/HCPCS: 96365; 85025; 36415; 81003; 83690; 80053; 76377; 74176; 96375; 99284; J2001; J1100; J2405; J2800

== ENCOUNTER 2024-07-11 11:48 | Emergency (ER) | payer MEDICAID ==
--- OUTSIDE RECORDS SUMMARY | 2024-07-11 11:53 | XMS REPORT | Continuity of Care Document ---
Author Name Unknown Address [address] [facility] [address] [place] [address] [facility] thconnect Address [address] [facility] [address] [place] [address] Care Team Providers Care Dental Equipment Repairer Name Role Phone Paramjit CERON, Soila Montenegro Primary Care Physician YOSEF ELENA Attending Clinician Unava ilable STEPHANIE SPAIN Attending Clinician Unavailable SOILA YUSUF Attending Clinician Unava ilable LAB90 Attending Clinician Unavailable JOHNNY DIAS Attending Clinician Unavailable MD LILI Attending Clinician Unavailab FIONA Martinez Attending Clinician Unavailable JAMESON JOHNSON Attending Clinician Unavailab CHANA Bill Attending Clinician UnavailTHOMAS Cornelius Attending Clinician Unavailable Stephanie Spain DO Attending Clinician [phone] Vern Ferreira MD Attending Clinician [phone] VERN FERREIRA Attending Clinician Unavailable Soila Yusuf MD Attending Clinician [phone] Johnny Martinez Attending Clinician [phone] Payers Payer Name Policy Type Policy Number Effective Date Expirati on Date Source [employer] SIGNATURE O 7 [id number] 2024 00:00:00 Problems Condition Name Condition Details Condition [...] subsequent encounter Disease Active 10-07 00:00: 00 Fay Ayala - Externa l Effusion of left [...] might be different from the original. IMO [id number] Fay Ayala UTI (urinary tract infection) , [...] MG oral Tablet 12-11 00:00: 00 Yes [id number] 80mg Take 1 tablet (80 mg total) by mouth every morning. Fay gracia Loratadine 10 MG oral Capsule 10-24 11:05: 06 10-24 00:00 :00 No 10mg Take 1 capsule (10 mg total) by mouth 2 times daily. Fay gracia Kendall-3 Fatty Acids (Fish Oil) 1000 MG oral Capsule 10-24 10:46: 27 Yes 2000mg QD Take 2 capsules (2,000 mg total) by mouth daily. Fay gracia Cholecalcif delilah (Vitamin D) 25 MCG (1000 UT) oral Tablet 10-24 10:46: 27 Yes 25U QD Take 25 units by mouth daily Fay gracia Loratadine 10 MG oral Capsule 10-24 00:00: 00 Yes [id number] 10mg QD Take 1 capsule (10 mg total) by mouth daily. Fay gracia Carvedilol 25 MG oral Tablet 10-03 00:00: 00 Yes [id number] 25mg Q.5D Take 1 tablet (25 mg total) by mouth 2 times daily. Fay gracia Amlodipine Besylate 2.5 MG oral Tablet 10-03 00:00: 00 Yes [id number] 2.5mg QD Take 1 tablet (2.5 mg total) by mouth daily. Fay gracia Tizanidine HCl 2 MG oral Tablet 5-10 00:00: 00 Yes [id number] 2mg QD Take 1 tablet (2 mg [...] daily as needed for diarrhea. Fay gracia Kendall-3 Fatty Acids (Fish Oil) 1000 MG oral [...] MG oral Capsule 07-24 00:00: 00 Yes [id number] 100mg Q.[id number] 3D Take 1 capsule (100 mg total) by mouth 3 times daily as needed for cough. Fay gracia Cromolyn Sodium (NasalCrom) 5.2 MG/ACT nasal Aerosol Solution 07-24 00:00: 00 Yes [id number] 1{spray } QD Use 1 spray in each nostril daily as needed. Fay gracia Triamcinolo ne Acetonide 0.1 % apply externally Cream 07-24 00:00: 00 08-22 04:59 :00 No [id number] Apply to affected skin twice daily for 10 days. Fay gracia Carvedilol 25 MG oral Tablet 07-10 00:00: 00 Yes [id number] 25mg Take 1 tablet (25 mg total) by mouth 2 times daily. Fay gracia Amlodipine Besylate 2.5 MG oral Tablet 07-10 00:00: 00 Yes [id number] 2.5mg Take 1 tablet (2.5 mg total) by mouth daily. Fay gracia Pravastatin Sodium 80 MG oral Tablet 06-14 00:00: 00 Yes [id number] 80mg Take 1 tablet (80 mg total) by mouth every morning. Fay gracia Alendronate Sodium 70 MG oral Tablet 05-30 00:00: 00 Yes 70mg Take 1 tablet (70 mg total) by mouth once a week. Fay gracia Amoxicillin -Pot Clavulanate 500-125 MG oral Tablet 2022-05 00:00: 00 07-24 00:00 :00 No [id number] 1{tbl} Take 1 tablet by mouth 2 times daily. Fay gracia Kendall-3 Fatty Acids (Fish Oil) 1000 MG oral [...] Take by mouth as needed Fay gracia Kendall-3 Fatty Acids (Fish Oil) 1000 MG oral Capsule 2022-05 15:07: 53 Yes 2000mg Take 2 capsules (2,000 mg total) by mouth daily. Fay gracia Cholecalcif delliah (Vitamin D) 25 MCG (1000 UT) oral [...] 2022-05 00:00: 00 07-24 00:00 :00 No [id number] 100mg Take 1 tablet (100 mg total) by mouth 2 times daily. Fay gracia Mupirocin (BACTROBAN) 2 % apply externally Ointment 2022-05 0 00:00: 00 07-24 00:00 :00 No [id number] Apply 1 applicatio n. topically 3 times daily. Fay gracia Carvedilol 25 MG oral Tablet 01-17 00:00: 00 Yes [id number] 25mg Take 1 tablet (25 mg total) by mouth 2 times daily. Fay gracia Amlodipine Besylate 2.5 MG oral Tablet 01-17 00:00: 00 Yes [id number] 2.5mg Take 1 tablet (2.5 mg total) by mouth daily. Fay gracia Levothyroxi ne Sodium 50 MCG oral Tablet 01-05 00:00: 00 Yes [id number] 50ug QD Take 1 tablet (50 mcg total) by mouth daily. Fay gracia Alendronate Sodium 70 MG oral Tablet 12-13 00:00: 00 Yes Take 1 tablet by mouth once a week Fay gracia Tizanidine HCl 2 MG oral Tablet 11-11 00:00: 00 Yes [id number] TAKE 1 TABLET BY MOUTH NIGHTLY NEEDED FOR MUSCLE SPASM Fay gracia Kendall-3 Fatty Acids (Fish Oil) 1000 MG oral [...] MG oral Tablet 11-04 00:00: 00 Yes [id number] 2.5mg Take 1 tablet (2.5 mg total) by mouth daily Fay gracia Carvedilol 25 MG oral Tablet 11-04 00:00: 00 Yes [id number] 25mg Take 1 tablet (25 mg total) by mouth 2 times daily Fay gracia Metformin HCl ER 500 MG oral TABLET SR 24 HR 11-03 00:00: 00 Yes TAKE 2 TABLETS BY MOUTH ONCE DAILY WITH BREAKFAST Fay gracia Levothyroxi ne Sodium 50 MCG oral Tablet 10-10 00:00: 00 Yes [id number] Take 1 tablet by mouth once daily Fay gracia Alendronate Sodium 70 MG oral Tablet 15 00:00: 00 Yes Take 1 tablet by mouth once a week Fay gracia Pravastatin Sodium 80 MG oral Tablet 2021-05 00:00: 00 Yes [id number] 80mg Take 1 tablet (80 mg total) by mouth every morning Fay gracia Kendall-3 Fatty Acids (Fish Oil) 1000 MG oral [...] MG oral Capsule 2021-05 00:00: 00 Yes [id number] 2mg QD Take 1 capsule (2 mg total) by mouth nightly as needed for muscle spasms Fay gracia Amlodipine Besylate 2.5 MG oral Tablet 2021-05 00:00: 00 Yes [id number] Take 1 tablet by mouth once daily Fay gracia Alendronate Sodium 70 MG oral Tablet 01-04 00:00: 00 Yes Take 1 tablet by mouth once a week Fay gracia Gabapentin 100 MG oral Capsule 12-08 00:00: 00 03-22 00:00 :00 No [id number] 100mg Q.[id number] 3D Take 1 capsule (100 mg total) by mouth 3 times daily as needed Fay gracia Carvedilol 25 MG oral Tablet 11-13 00:00: 00 Yes [id number] 25mg Take 1 tablet (25 mg total) by mouth 2 times daily Fay gracia Levothyroxi ne Sodium 50 MCG oral Tablet 10-20 00:00: 00 Yes [id number] 50ug Take 1 tablet (50 mcg total) by mouth daily Fay gracia Metformin HCl ER 500 MG oral TABLET SR 24 HR 10-20 00:00: 00 Yes 1000mg Take 2 tablets (1,000 mg total) by mouth daily (with breakfast) Fay gracia Amlodipine Besylate 5 MG oral Tablet 10-07 10:57: 18 Yes 5mg Take 5 mg by mouth daily Fay Ayala Kendall-3 Fatty Acids (Fish Oil) 1000 MG oral [...] MG oral tablet 10-07 00:00: 00 Yes [id number] One pill twice daily for 7 days then one pill daily for 7 days Fay Ayala Carvedilol 25 MG oral Tablet 4-04 00:00: 00 Yes [id number] Take 1 tablet by mouth twice daily Fay Ayala Acetaminoph en-Codeine #3 300-30 MG oral Tablet 3-28 00:00: 00 Yes [id number] 1{tbl} Q.25D Take 1 tablet by mouth every 6 hours as needed Fay Ayala Levothyroxi ne Sodium 50 MCG oral Tablet 3-15 00:00: 00 Yes [id number] Take 1 tablet by mouth once daily Fay Ayala Tizanidine HCl 4 MG oral Tablet 3-11 00:00: 00 Yes [id number] 4mg Q.[id number] 3D Take 1 tablet (4 mg total) by mouth every 8 hours as needed for muscle spasms Use sparingly Fay Ayala Celecoxib (CeleBREX) 200 MG oral Capsule - 00:00: 00 Yes [id number] 200mg Take 1 capsule (200 mg total) by mouth in the morning and 1 capsule (200 mg total) in the evening. Fay Ayala Pravastatin Sodium 80 MG oral Tablet 07 00:00: 00 Yes [id number] 80mg Take 1 tablet (80 mg total) by mouth in the morning. Fay Ayala - Externa l Amlodipine Besylate 5 MG oral Tablet 07-06 10:46: 35 Yes 5mg Take 5 mg by mouth daily Fay Ayala Kendall-3 Fatty Acids (Fish Oil) 1000 MG oral [...] MG oral Tablet 07-06 00:00: 00 Yes [id number] 1{tbl} Q6H Take 1 tablet by mouth every 6 hours as needed Fay Ayala Amlodipine Besylate 5 MG oral Tablet 05-27 13:04: 11 Yes 5mg Take 5 mg by mouth daily Fay Ayala Kendall-3 Fatty Acids (Fish Oil) 1000 MG oral [...] MG oral Capsule 05-27 00:00: 00 Yes [id number] 200mg Take 1 capsule (200 mg total) by mouth 2 times daily Fay Ayala Tramadol HCl 50 MG oral Tablet 05-27 00:00: 00 Yes [id number] 50mg Q6H Take 1 tablet (50 mg total) by mouth every 6 hours as needed for pain Fay Ayala Amlodipine Besylate 2.5 MG oral Tablet 2020-05 0 00:00: 00 Yes [id number] 2.5mg Take 1 tablet (2.5 mg total) by mouth daily Fay Ayala Amlodipine Besylate 5 MG oral Tablet 02-01 10:14: 09 Yes 5mg Take 5 mg by mouth daily Fay Ayala Kendall-3 Fatty Acids (Fish Oil) 1000 MG oral [...] MG oral Tablet 01-22 00:00: 00 Yes [id number] 200mg Q.[id number] 3D Take 1 tablet (200 mg total) by mouth 3 times daily as needed for pain Will turn urine bright orange Fay Ayala Tamsulosin HCl 0.4 MG oral Capsule 01-22 00:00: 00 Yes [id number] .4mg Take 1 capsule (0.4 mg total) by mouth daily Fay Ayala Nitrofurant oin Monohyd Macro 100 MG oral Capsule 01-22 00:00: 00 01-28 04:59 :00 No [id number] 100mg Take 1 capsule (100 mg total) by mouth 2 times daily for 5 days Fay Ayala Carvedilol 25 MG oral Tablet 01-21 00:00: 00 Yes [id number] 25mg Take 1 tablet (25 mg total) by mouth 2 times daily Fay Ayala Levothyroxi ne Sodium 50 MCG oral Tablet 01-21 00:00: 00 Yes [id number] 50ug Take 1 tablet (50 mcg total) by mouth daily Fay Ayala Pravastatin Sodium 80 MG oral Tablet 01-21 00:00: 00 Yes [id number] 80mg Take 1 tablet (80 mg total) by mouth daily Fay Ayala Amlodipine Besylate 5 MG oral Tablet 01-04 10:02: 51 Yes 5mg Take 5 mg by mouth daily Fay Ayala Kendall-3 Fatty Acids (Fish Oil) 1000 MG oral [...] Yes Take by mouth as needed Fay yAala Cromolyn Sodium (NASALCROM NA) 01-04 10:02: 51 [...] Completed Fay Jaimesold - External Covid-19 Vaccine (Mygeni), Mrna-lnp, Aldair Protein, Pf, 30mcg/0.3ml,IM 2021-02-12 00:00:00 Completed Fay Seybold Covid-19 Vaccine (Mygeni), Mrna-lnp, Aldair Protein, Pf, 30mcg/0.3ml,IM 2021-02-12 00:00:00 Completed Fay Seybold Covid-19 Vaccine (Mygeni), Mrna-lnp, Aldair Protein, Pf, 30mcg/0.3ml,IM 2021-02-12 00:00:00 Completed Fay Seybold Covid-19 Vaccine (Pfizer), Mrna-lnp, Aldair Protein, Pf, 30mcg/0.3ml,IM 2021-02-12 00:00:00 Completed Fay Seybold Covid-19 Vaccine (Mygeni), Mrna-lnp, Aldair Protein, Pf, 30mcg/0.3ml,IM 2021-02-12 00:00:00 Completed Fay Seybold - External Covid-19 Vaccine (Mygeni), Mrna-lnp, Aldair Protein, Pf, 30mcg/0.3ml,IM 2021-02-12 00:00:00 [...] Completed Fay Jaimesold Covid-19 Vaccine (Pfizer), Mrna-lnp, Aldair Protein, Pf, [...] External Pneumococcal Vaccine, Polysaccharide Unknown Completed Fay EvansSuperflyol d - External Pneumococcal Vaccine, Conjugate 13 [...] External RSV, Arexvy Unknown Completed Fay Watson [employer] - External Covid-19 Vaccine (Mygeni), Mrna-lnp, Aldair Protein, Pf, 30mcg/0.3ml,IM Unknown Completed Fay [employer] - External Tdap- (Boostrix, Adacel) Unknown Completed [facility] - External Influenza Virus Vaccine, age 6 months and up Unknown Completed Fay [facility] - External Pneumococcal Vaccine, Polysaccharide Unknown Completed Fay EvansSuperflyol d - External Pneumococcal Vaccine, Conjugate 13 Unknown Completed Fay Ayala - External Shingles SQ (Zostavax) Unknown Completed Fay Evansbairon - External Shingles IM (Shingrix) Unknown Completed [facility] - [facility] Influenza Virus Vaccine, Quadrivalent, High Dose, Age 65 And Up Unknown Completed Fay Watson bold - External Influenza Virus Vaccine, High Dose, Age 65 And Up Unknown Completed [facility] - External Pneumococcal Vaccine, Conjugate 20 Unknown Completed Fay Evansold - External COVID-19 VACCINE(MODERNA)(FALL 2022)(12YRS+) Unknown Completed Fay Evansold - External RSV, Arexvy Unknown Completed Fay Watson [employer] - External Vital Signs Vital Name Observation [...] by Pulse oximetry 2023-03-08 18:24:00 98 /min Fay Seybo ld - External Systolic [...] Seybold Body temperature 2021-01-22 14:27:00 36.61 Kalli Fya Seybold Respiratory rate 2021-01-22 14:27:00 14 /min [...] End Date/Time Encounter Type Admission Type Attending [facility] Care Department Encounter ID Source 2021-07-22 09:13:03 [id number] 2024-09-25 13:00:00 2024-09-25 13:00:00 Outpatient YOSEF ELENA [id number] Fay Seybbairon 2024-07-05 14:30:00 2024-07-05 14:30:00 Outpatient YOSEF ELENA [id number] Fay Sey[facility]airon 2024-07-03 15:30:00 2024-07-03 15:30:00 Outpatient [facility]AN[facility] SPA[facility] [id number] [facility]24-[facility] 00:00:00 2024-07-03 00:00:00 Outpatient STEPHANIE SPAIN [id number] Fay Seybold 2024-06-13 00:00:00 2024-06-13 00:00:00 Outpatient SOILA YUSUF [id number] Fay Seybold 2024-05-02 11:00:00 2024-05-02 11:00:00 Outpatient STEPHANIE SPAIN [id number] [facility] 2024-04-25 00:00:00 2024-04-25 00:00:00 Outpatient STEPHANIE SPAIN [id number] Fay Seybold 2024-04-23 12:30:00 2024-04-23 12:30:00 Outpatient LAB90 FAY MONROE [id number] Fay Seybold 2024-04-12 13:00:00 2024-04-12 13:00:00 Outpatient YOSEF ELENA [id number] Fay Seybold 2024-04-05 14:00:00 2024-04-05 14:00:00 Outpatient ELENA, YOSEF FAY MONROE [id number] Fay [facility] 2024-04-05 00:00:00 2024-04-05 00:00:00 Outpatient STEPHANIE SPAIN FAY MONROE [id number] [facility]ay [facility] 2024-03-18 00:00:00 2024-03-18 00:00:00 Outpatient PRADIP STEPHANIE MONROE [id number] [facility]ay [facility] 2024-03-04 15:00:00 2024-03-04 15:00:00 Outpatient SHANEShhaana JOHNNY MONROE [id number] Fay [facility] 2024-03-01 00:00:00 2024-03-01 00:00:00 Outpatient JOHNNY DIAS [id number] Fay [facility] 2024-03-01 00:00:00 2024-03-01 00:00:00 Outpatient MD FAY MARTIN [id number] Fay [facility] 2024-02-20 00:00:00 2024-02-20 00:00:00 Outpatient YIFAN SPAINLORIN MONROE [id number] [facility]ay [facility] 2024-02-16 00:00:00 2024-02-16 00:00:00 Outpatient FAY MONROE [id number] [facility]ay [facility] 2024-02-12 00:00:00 2024-02-12 00:00:00 Outpatient JOHNNY DIAS [id number] [facility]ay [facility] 2024-01-29 00:00:00 2024-01-29 00:00:00 Outpatient FAY MONROE [id number] [facility]ay [facility] 2024-01-29 00:00:00 2024-01-29 00:00:00 Outpatient FAY MONROE [id number] [facility]ay [facility] 2024-01-25 09:30:00 2024-01-25 09:30:00 Outpatient STEPHANIE SPAIN FAY MONROE [id number] [facility]ay [facility] 2024-01-25 00:00:00 2024-01-25 00:00:00 Outpatient MD FAY MARTIN [id number] [facility] 2023-12-12 00:00:00 2023-12-12 00:00:00 Outpatient SOILA YUSUF FAY MONROE [id number] [facility] 2023-11-03 14:15:00 2023-11-03 14:15:00 Outpatient PREZASTEPHANIE Watson FAY MONROE [id number] [facility] 2023-10-30 00:00:00 2023-10-30 00:00:00 Outpatient PREZASSTEPHANIE FAY [id number] [facility] 2023-10-26 00:00:00 2023-10-26 00:00:00 Outpatient PREZASSTEPHANIE FAY MONROE [id number] [facility] 2023-10-25 11:20:00 2023-10-25 11:20:00 Outpatient SURJIT FAY MONROE [id number] [facility] 2023-10-25 10:30:00 2023-10-25 10:30:00 Outpatient PREZASSTEPHANIE [facility] [id number] [facility]:00:00 2023-10-11 16:00:00 Outpatient YOSEF ELENA [id number] [facility] 2023-10-04 00:00:00 2023-10-04 00:00:00 Outpatient PRDAIP STEPHANIE MONROE [id number] [facility] 2023-09-27 11:45:00 2023-09-27 11:45:00 [facility] [id number] [facility]:00:00 2023-09-22 00:00:00 Outpatient MD FAY MARTIN [id number] [facility] 2023-09-21 00:00:00 2023-09-21 00:00:00 Outpatient MD FAY MARTIN [id number] [facility] 2023-09-18 00:00:00 2023-09-18 00:00:00 Outpatient PREMORAIMAS STEPHANIE MONROE [id number] [facility] 2023-08-19 00:00:00 2023-08-19 00:00:00 Outpatient ALEJANDROFIONA FAY MONROE [id number] [facility] 2023-07-26 00:00:00 2023-07-26 00:00:00 Outpatient FAY MONROE [id number] [facility] 2023-07-26 00:00:00 2023-07-26 00:00:00 Outpatient FAY MONROE [id number] [facility] 2023-07-25 09:50:00 2023-07-25 09:50:00 Outpatient LAB90 FAY MONROE [id number] [facility] 2023-07-25 09:00:00 2023-07-25 09:00:00 Outpatient NORBERTShirley STEPHANIE FAY MONROE [id number] [facility] 2023-07-08 00:00:00 2023-07-08 00:00:00 Outpatient YIFAN SPAINAND FAY MONROE [id number] [facility] 2023-07-07 00:00:00 2023-07-07 00:00:00 Outpatient FAY MONROE [id number] [facility] 2023-06-10 00:00:00 2023-06-10 00:00:00 Outpatient SOILA YUSUF [id number] [facility] 2023-05-26 00:00:00 2023-05-26 00:00:00 Outpatient ALEJANDRO FIONADIEGO MONROE [id number] [facility] 2023-03-13 00:00:00 2023-03-13 00:00:00 Outpatient JAMESON JOHNSON [id number] Fay Seybold 2023-03-13 00:00:00 2023-03-13 00:00:00 Outpatient JAMESON JOHNSON [id number] Fay Seybold 2023-03-11 00:00:00 2023-03-11 00:00:00 Outpatient SOILA YUSUF [id number] [facility] 2023-03-10 10:55:2023-03-10 10:55:00 Outpatient LAB90 FAYROMULO MONROE [id number] Fay [facility] 2023-03-09 00:00:00 2023-03-09 00:00:00 Outpatient PRESTEPHANIE CARBAJAL FAY MONROE [id number] [facility] 2023-03-08 13:30:00 2023-03-08 13:30:00 Outpatient ELIZABETH JAMESON FAY MONROE [id number] Fay [facility] 2023-03-08 12:35:00 2023-03-08 12:35:00 Outpatient LAB90 FAY FAY [id number] Fay [facility] 2023-03-06 13:30:00 2023-03-06 13:30:00 Outpatient JAMESON [facility]OHNSON [facility]ROE [id number] [facility] 11:00:00 2023-02-27 11:00:00 Outpatient PREZAS STEPHANIE FAY MONROE [id number] [facility] 2023-02-27 00:00:00 2023-02-27 00:00:00 Outpatient ALEJANDROFIONA FAY MONROE [id number] [facility] 2023-02-23 00:00:00 2023-02-23 00:00:00 Outpatient SOILA YUSUF [id number] [facility] 2023-02-20 15:30:00 2023-02-20 15:30:00 Outpatient JAMESON JOHNSON [id number] [facility] 2023-02-17 15:30:00 2023-02-17 15:30:00 Outpatient CHANA DA SILVA [id number] [facility] 2023-02-17 00:00:00 2023-02-17 00:00:00 Outpatient SOILA YUSUF [id number] [facility] 2023-02-17 00:00:00 2023-02-17 00:00:00 Outpatient PREZAS, STEPHANIE MONROE [id number] [facility] 2023-02-17 00:00:00 2023-02-17 00:00:00 Outpatient JOHNNY DIAS [id number] [facility] 2023-02-09 00:00:00 2023-02-09 00:00:00 Outpatient PREZAS, STEPHANIE FAY MONROE [id number] Fay Seybold 2023-02-06 00:00:00 2023-02-06 00:00:00 Outpatient PREZAS, STEPHANIE FAY MONROE [id number] [facility] 2023-01-14 00:00:00 2023-01-14 00:00:00 Outpatient PREZAS, STEPHANIE FAY MONROE [id number] [facility] 2023-01-05 00:00:00 2023-01-05 00:00:00 Outpatient PREZAS, STEPHANIELORIN MONROE [id number] [facility] 2023-01-01 00:00:00 2023-01-01 00:00:00 Outpatient PREZAS, STEPHNAIE FAY MONROE [id number] [facility] 2022-12-11 00:00:00 2022-12-11 00:00:00 Outpatient AGA, FIONA FAY MONROE [id number] [facility] 2022-11-28 00:00:00 2022-11-28 00:00:00 Outpatient PREZAS, STEPHANIE FAY MONROE [id number] [facility] 2022-11-27 00:00:00 2022-11-27 00:00:00 Outpatient PREZAS, STEPHANIELORIN MONROE [id number] [facility] 2022-11-25 10:55:00 2022-11-25 10:55:00 Outpatient LAB90 FAY MONROE [id number] Fay Seybold 2022-11-25 00:00:00 2022-11-25 00:00:00 Outpatient PREZAS, STEPHANIE MONROE [id number] Fay Seybold 2022-11-24 00:00:00 2022-11-24 00:00:00 Outpatient MD FAY MARTIN [id number] Fay Seybold 2022-11-19 00:00:00 2022-11-19 00:00:00 Outpatient PREZAS, STEPHANIE MONROE [id number] Fay Seybold 2022-11-10 14:30:00 2022-11-10 14:30:00 Outpatient LABHood FAY MONROE [id number] Fay Seybold 2022-11-10 13:30:00 2022-11-10 13:30:00 Outpatient LYDIATHOMAS MELCHOR FAY MONROE [id number] Fay Seybold 2022-11-10 00:00:00 2022-11-10 00:00:00 Outpatient FAY MONROE [id number] Fay Seybold 2022-11-10 00:00:00 2022-11-10 00:00:00 Outpatient PREZASSTEPHANIE FAY MONROE [id number] Fay Seybold 2022-11-01 00:00:00 2022-11-01 00:00:00 Outpatient FIONA ALLEN FAY MONROE [id number] [facility] 2022-11-01 00:00:00 2022-11-01 00:00:00 Outpatient PREZASTEPHANIE Watson FAY MONROE [id number] [facility] 2022-10-05 00:00:00 2022-10-05 00:00:00 Outpatient SOILA YUSUF [id number] [facility] 2022-09-24 00:00:00 2022-09-24 00:00:00 Outpatient FIONA ALLEN FAY MONROE [id number] [facility] 2022-08-06 00:00:00 2022-08-06 00:00:00 Outpatient SOILA YUSUF [id number] Fay Seybold 2022-05-20 00:00:00 2022-05-20 00:00:00 Outpatient PREZAS STEPHANIE MONROE [id number] Fay Seybold 2022-05-19 00:00:00 2022-05-19 00:00:00 Outpatient PREZAS STEPHANIE MONROE [id number] Fay Seybold 2022-04-27 00:00:00 2022-04-27 00:00:00 Outpatient FAY MONROE [id number] Fay Seybold 2022-04-21 00:00:00 2022-04-21 00:00:00 Outpatient PREZASTEPHANIE Watson FAY [id number] [facility] 2022-04-13 13:30:00 2022-04-13 13:30:00 Outpatient PREZASTEPHANIE Watson FAY [id number] [facility] 2022-04-13 00:00:00 2022-04-13 00:00:00 Outpatient PARAMJITSOILA HOWARD FAY MONROE [id number] [facility] 2022-03-24 00:00:00 2022-03-24 00:00:00 Outpatient PREZASTEPHANIE Watson FAY [id number] [facility] 2022-03-22 11:15:00 2022-03-22 11:15:00 Outpatient STEPHANIE SPAIN FAY [id number] [facility] 2022-02-24 13:30:00 2022-02-24 13:30:00 Outpatient YOANAZASTEPHANIE Watson FAY [id number] Fay [facility] 2022-01-11 14:30:00 2022-01-11 14:30:00 Outpatient LAB90 FAY FAY [id number] Fay [facility] 2022-01-11 13:30:00 2022-01-11 14:15:00 Office Visit Stephanie Spain [id number] Fay [facility] 2022-01-07 00:00:00 2022-01-07 00:00:00 Outpatient PARAMJIT SOILA MONROE [id number] Fay [facility] 2022-01-06 10:30:00 2022-01-06 10:30:00 Outpatient [id number] FAY MONROE [id number] [facility] 2022-01-06 00:00:00 2022-01-06 00:00:00 Outpatient PARAMJ[facility]IL[facility] [id number] [facility] 2021-12[facility]14 [facility]:00 2021-12-14 00:00:00 Outpatient STEPHANIE SPAINSEY [id number] [facility] 2021-12-10 00:00:00 2021-12-10 00:00:00 Outpatient TSEPHANIE SPAIN [id number] [facility] 2021-12-09 00:00:00 2021-12-09 00:00:00 Outpatient STEPHANIE SPAIN FAY [id number] [facility] 2021-12-08 11:15:00 2021-12-08 11:45:00 Office Visit Stephanie Spain [id number] [facility] 2021-12-08 00:00:00 2021-12-08 00:00:00 Outpatient PARAMJIT SOILA FAY MONROE [id number] [facility] 2021-12-01 11:10:00 2021-12-01 11:10:00 Outpatient FAY MONROE [id number] [facility] 2021-12-01 10:30:00 2021-12-01 10:40:00 Office Visit Vern Ferreira [id number] [facility] 2021-11-17 10:30:00 2021-11-17 10:40:00 Office Visit Vern Ferreira [id number] [facility] 2021-11-04 10:45:00 2021-11-04 10:45:00 Outpatient STEPHANIE SPAIN FAY MONROE [id number] [facility] 2021-10-27 10:00:00 2021-10-27 10:00:00 [facility]IR[facility] [id number] [facility] 2021-10-25 00:00:00 2021-10-25 00:00:00 Outpatient VERN FERREIRASEY [id number] [facility] 2021-10-18 00:00:00 2021-10-18 00:00:00 Outpatient STEPHANIE SPAIN FAY [id number] [facility] 2021-10-07 11:00:00 2021-10-07 11:30:00 Office Visit Stephanie Spain [id number] [facility] 2021-10-05 11:15:00 2021-10-05 11:15:00 Outpatient SOILA YUSUF FAY MONROE [id number] [facility] 2021-10-01 00:00:00 2021-10-01 00:00:00 Outpatient MORGAN YUSUFFRANCES MONROE [id number] [facility] 2021-10-01 00:00:00 2021-10-01 00:00:00 Outpatient [facility] [id number] [facility] 2021-09-20 15:15:00 2021-09-20 15:15:00 Outpatient MORGAN YUSUFFRANCES MONROE [id number] [facility] 2021-09-17 00:00:00 2021-09-17 00:00:00 Outpatient MORGAN YUSUFFRANCES MONROE [id number] [facility] 2021-09-15 00:00:00 2021-09-15 00:00:00 Outpatient SOILA [facility]USUF [facility]AY MONROE [id number] [facility] 2021-08-23 11:00:00 2021-08-23 11:45:00 Office Visit Soila Yusuf Moni Chana Correa [id number] [facility] 2021-08-23 00:00:00 2021-08-23 00:00:00 Outpatient PARAMJITSOILA FAY MONROE [id number] [facility] 2021-07-27 00:00:00 2021-07-27 00:00:00 Outpatient SOIL[facility]USUF [facility]AY MONRO[facility] [id number] [facility] 2021-07-23 00:00:00 2021-07-23 00:00:00 Outpatient SOILA YUSUF FAY MONROE [id number] [facility] 2021-07-23 00:00:00 2021-07-23 00:00:00 Outpatient SOILA YUSUF FAY MONROE [id number] [facility] 2021-07-23 00:00:00 2021-07-23 00:00:00 Outpatient SOILA YUSUF FAY MONROE [id number] [facility] 2021-07-22 00:00:00 2021-07-22 00:00:00 Outpatient SOILA YUSUF FAY MONROE [id number] [facility] 2021-07-19 00:00:00 2021-07-19 00:00:00 Outpatient FAY MONROE [id number] [facility] 2021-07-19 00:00:00 2021-07-19 00:00:00 Outpatient SOILA YUSUF FAY MONROE [id number] [facility] 2021-07-17 00:00:00 2021-07-17 00:00:00 Outpatient [facility] [id number] [facility] 2021-07-12 00:00:00 2021-07-12 00:00:00 Outpatient SOILA YUSUF FAY MONROE [id number] [facility] 2021-07-06 11:30:00 2021-07-06 11:30:00 Outpatient LAB FAY MONROE [id number] [facility] 2021-07-06 11:00:00 2021-07-06 11:15:00 Office Visit [place]ila howard Moni [place] [id number] [facility] 2021-05-31 00:00:00 2021-05-31 00:00:00 Outpatient JOHNNY DIAS [id number] [facility] 2021-05-27 13:30:00 2021-05-27 14:00:00 Office Visit Johnny Dias [id number] [facility] 2021-02-08 00:00:00 2021-02-08 00:00:00 Outpatient SOILA YUSUF [id number] [facility] 2021-02-02 00:00:00 2021-02-02 00:00:00 Outpatient JOHNNY DIASROMULO MONROE [id number] [facility] 2021-02-01 10:05:53 2021-02-01 10:35:53 Office Visit Johnny Dias [id number] [facility] 2021-02-01 10:05:53 2021-02-01 10:35:53 Office Visit Johnny Dias [id number] 2021-01-22 09:22:01 2021-01-22 09:52:01 Office Visit Johnny Dias [id number] [facility] 2021-01-22 09:22:01 2021-01-22 09:52:01 Office Visit Johnny Dias [id number] 2021-01-21 00:00:00 2021-01-21 00:00:00 Outpatient SOILA YUSUF [id number] [facility] 2021-01-04 09:30:00 2021-01-04 09:30:00 Outpatient SOILA [facility]USUFSEY [id number] [facility] 2021-01-04 00:00:00 2021-01-04 00:00:00 Outpatient MD FAY MARTIN [id number] [facility] 2020-12-14 10:15:00 2020-12-14 10:15:00 Outpatient LAB90 FAY MONROE [id number] [facility] 2020-12-14 09:15:00 2020-12-14 09:15:00 Outpatient PARAMJITMORGAN HOWARDFRANCES MONROE [id number] [facility] 2020-12-11 10:30:00 2020-12-11 10:30:00 Outpatient SOILA YUSUF [id number] [facility] 2020-12-09 11:55:00 2020-12-09 11:55:00 Outpatient LAB90 FAY MONROE [id number] [facility] Results Test Description Test Time Test Comments Results Result Co mments Source [facility] - External Notes Date/Time Note Provider Source 2023-10-25 10:46:30 Chief Complaint Patient presents with OTHER [facility] 2023-09-27 11:31:45 Chief Complaint Patient presents with Skin Lesion [facility]
--- NOTE | 2024-07-11 13:47 | RAD REPORT ---
EXAM:Foot Left 3 View HISTORY: 04/23/2011 COMPARISON: None IMPRESSION: Nondisplaced, incomplete fracture at the proximal fifth metatarsal metadiaphysis. Calcaneal spurring.
--- NOTE | 2024-07-11 14:22 | ER ---
Nurse's Notes [facility] Name: Sariah Castillo Age: 79 yrs Sex: Female : 1945 Arrival Date: 07/11/2024 Time: 11:48 Bed 12 Private MD: Diagnosis: Nondisplaced fracture of fifth metatarsal bone, left foot Presentation: 07/11 12:36 Chief complaint: Patient states: she injured her left foot approx one month ago by ap3 twisting it, but it never really healed. patient states this morning she missed a step when carrying her laundry and re-twisted it. patient currently rates her pain as a 20/10 on the pain scale. Coronavirus screen: At this time, the client does not indicate any symptoms associated with coronavirus-19. Ebola Screen: No symptoms or risks identified at this time. Initial Sepsis Screen: Does the patient meet any 2 criteria? No. Patient's initial sepsis screen is negative. Does the patient have a suspected source of infection? No. Patient's initial sepsis screen is negative. Risk Assessment: Do you want to hurt yourself or someone else? Patient reports no desire to harm self or others. Onset of symptoms is unknown. 12:36 Method Of Arrival: Wheelchair ap3 12:36 Acuity: JAVIER 4 ap3 Triage Assessment: 12:38 General: Appears in no apparent distress. Behavior is calm, cooperative, appropriate ap3 for age. Pain: Complains of pain in left foot Pain currently is 10 out of 10 on a pain scale. Neuro: Level of Consciousness is awake, alert, obeys commands, Oriented to person, place, time, situation, Appropriate for age. Cardiovascular: Patient's skin is warm and dry. Respiratory: Airway is patent Respiratory effort is even, unlabored, Respiratory pattern is regular, symmetrical. Musculoskeletal: Range of motion: intact in all extremities. Historical: - Allergies: 12:38 Aspirin; ap3 12:38 medication given in general anesthesia made her vomit; ap3 - PMHx: 12:38 diabetes mellitus; High Cholesterol; Hypertensive disorder; Hypertensive disorder; ap3 Spasmodic Dysphonia; - Immunization history:: Adult Immunizations unknown. - Infectious Disease History:: Denies. - Social history:: Smoking status: Patient denies any tobacco usage or history of. - Family history:: not pertinent. - Hospitalizations: : No recent hospitalization is reported. Screenin:38 [facility] ED Fall Risk Assessment (Adult) History of falling in the last 3 months, ap3 including since admission Yes- fall prone (multiple falls) (3 pts) Confusion or Disorientation No (0 pts) Intoxicated or Sedated No (0 pts) Impaired Gait Yes (1 pt) Mobility Assist Device Used No (0 pt) Altered Elimination No (0 pt) Score/Fall Risk Level 0 - 2 = Low Risk Oriented to surroundings, Maintained a safe environment, Educated pt \T\ family on fall prevention, incl call for assistance when getting out of bed, Assessed \T\ reinforced patient's understanding of fall precautions, Hourly rounding (assess needs \T\ fall precautionary measures) done, Used ambulatory aids as needed (educated on \T\ assisted with). Abuse screen: Denies threats or abuse. Nutritional screening: No deficits noted. Tuberculosis screening: No symptoms or risk factors identified. Assessment: 14:35 General: Appears in no apparent distress. uncomfortable, Behavior is calm, cooperative. hb Pain: Pain currently is 10 out of 10 on a pain scale. Neuro: Level of Consciousness is awake, alert, obeys commands, Oriented to person, place, time, situation. Cardiovascular: Patient's skin is warm and dry. Respiratory: Respiratory effort is even, unlabored, Respiratory pattern is regular, symmetrical. GI: No signs and/or symptoms were reported involving the gastrointestinal system. : No signs and/or symptoms were reported regarding the genitourinary system. EENT: No signs and/or symptoms were reported regarding the EENT system. Derm: Skin is pink, warm \T\ dry. Musculoskeletal: Reports left foot pain. Vital Signs: 12:36 BP 131 / 75; Pulse 73; Resp 18; Temp 98.3; Pulse Ox 100% ; Weight 65.77 kg; Pain 10/10; ap3 12:36 Pain Scale: Adult ap3 ED Course: 11:50 Patient arrived in ED. mr 11:51 Akira Matthews MD is Attending Physician. rn 12:38 Triage completed. ap3 12:39 Arm band placed on left wrist. ap3 12:57 XRAY Foot LEFT 3 View In Process Unspecified. EDMS 14:21 Devin Garnica MD is Referral Physician. rn 14:58 Patient has correct armband on for positive identification. Provided Education on: hb tests, follow up, medications . 14:58 No provider procedures requiring assistance completed. Patient did not have IV access hb during this emergency room visit. Administered Medications: 14:56 Drug: [place] PO 10 mg-325 mg 1 tabs PO once Route: PO; hb 14:56 Follow up: Response: Medication administered at discharge. hb Medication: 14:35 VIS not applicable for this client. hb Outcome: 14:22 Discharge ordered by . rn 14:58 Discharged to home via wheelchair, with significant other, hb 14:58 Condition: stable 14:58 Discharge instructions given to patient, significant other, Instructed on discharge instructions, follow up and referral plans. medication usage, Demonstrated understanding of instructions, follow-up care, medications, Prescriptions given X 1, 14:59 Patient left the ED. hb Signatures: Dispatcher [employer] EDMS Zahida Gannon, Reg Reg mr Akira Matthews MD MD rn Baxter, Heather, RN RN Kaila Kuo RN RN ap3 Corrections: (The following items were deleted from the chart) 14:59 14:58 Discharge instructions given to patient, significant other, Instructed on hb discharge instructions, follow up and referral plans. medication usage, Demonstrated understanding of instructions, follow-up care, medications, hb
--- NOTE | 2024-07-11 14:22 | EDPHYS ---
Physician Documentation [facility] Name: Sariah Castillo Age: 79 yrs Sex: Female : 1945 Arrival Date: 07/11/2024 Time: 11:48 Bed 12 Private MD: ED Physician Akira Matthews HPI: 07/11 13:21 This 79 yrs old Female presents to ER via Wheelchair with complaints of Foot Injury. rn 13:21 The patient presents with an injury, pain. The complaints affect the left foot. Onset: rn The symptoms/episode began/occurred this morning. The patient has experienced a previous episode. Patient reports misstep injury this morning while carrying something. Patient does not think she rolled her ankle and reports pain to the left lateral portion of the left foot. No laceration. No significant swelling. Hurts to step on it.. Historical: - Allergies: 12:38 Aspirin; ap3 12:38 medication given in general anesthesia made her vomit; ap3 - PMHx: 12:38 diabetes mellitus; High Cholesterol; Hypertensive disorder; Hypertensive disorder; ap3 Spasmodic Dysphonia; - Immunization history:: Adult Immunizations unknown. - Infectious Disease History:: Denies. - Social history:: Smoking status: Patient denies any tobacco usage or history of. - Family history:: not pertinent. - Hospitalizations: : No recent hospitalization is reported. ROS: 13:21 Constitutional: Negative for fever, chills, and weight loss, MS/Extremity: Positive for rn left foot injury and pain Skin: Negative for laceration or discoloration Neuro: Negative for weakness or numbness Exam: 13:21 Constitutional: This is a well developed, well nourished patient who is awake, alert, rn and in no acute distress. MS/ Extremity: Pulses equal, no cyanosis. Mild tenderness along lateral left foot. Small ecchymosis at base of the fifth toe. No laceration or open wound. No gross deformity. No tenderness at ankle or tib-fib Vital Signs: 12:36 BP 131 / 75; Pulse 73; Resp 18; Temp 98.3; Pulse Ox 100% ; Weight 65.77 kg; Pain 10/10; ap3 12:36 Pain Scale: Adult ap3 MDM: 11:51 Medical Screening Exam initiated rn 14:21 Differential diagnosis: fracture, sprain. Data reviewed: vital signs, nurses notes, rn radiologic studies, plain films, and as a result, I will discharge patient. Counseling: I had a detailed discussion with the patient and/or guardian regarding the historical points, exam findings, and any diagnostic results supporting the discharge/admit diagnosis, radiology results, the need for outpatient follow up, to return to the emergency department if symptoms worsen or persist or if there are any questions or concerns that arise at home. Special discussion: I discussed with the patient/guardian in detail that at this point there is no indication for admission to the hospital. It is understood, however, that if the symptoms persist or worsen the patient needs to return immediately for re-evaluation. Based on the history and exam findings, there is no indication for further emergent testing or inpatient evaluation. I discussed with the patient/guardian the need to see the orthopedic surgeon for further evaluation of the symptoms. 07/11 12:42 Order name: XRAY Foot LEFT 3 View; Complete Time: 14:02 rn 07/11 14:21 Order name: Post-op shoe; Complete Time: 14:57 rn Administered Medications: 14:56 Drug: [place] PO 10 mg-325 mg 1 tabs PO once Route: PO; 14:56 Follow up: Response: Medication administered at discharge. hb Disposition Summary: 07/11/24 14:22 Discharge Ordered Notes: Location: Home rn Problem: new rn Symptoms: have improved rn Condition: Stable rn Diagnosis - Nondisplaced fracture of fifth metatarsal bone, left foot rn Followup: rn - With: Devin Garnica MD - When: 1 week - Reason: Recheck today's complaints, Re-evaluation by your physician Discharge Instructions: - Discharge Summary Sheet rn - Metatarsal Fracture rn Forms: - Medication Reconciliation Form rn - Antibiotic learning and development consultant - Prescription Opioid Use rn - Patient Portal Instructions rn - Leadership Thank You Letter rn Prescriptions: - Tramadol 50 mg Oral Tablet - take 1 tablet ORAL route every 8 hours as needed; 12 tablet; Refills: 0, rn Product Selection Permitted Signatures: Dispatcher [employer] Akira Fitzpatrick MD MD rn Baxter, Heather, RN RN hb Prokisch, Amanda, RN RN ap3 Corrections: (The following items were deleted from the chart) 12:42 12:42 Foot Left 3 View+RAD.RAD.BRZ ordered. EDMS EDMS
[2024-07-11] MEDS ORDERED: HYDROCODONE/APAP 10/325 TAB ONE (14:34)
[2024-07-11 15:16] VITALS: BP 131/75; TEMP 98.3; O2SAT 100
== END 2024-07-11 14:59 | disposition home or self-care (01) ==
LOC: ER 11:48
DX: S92.355A Nondisplaced fracture of fifth metatarsal bone, left foot, initial encounter for closed fracture (principal)
CPT/HCPCS: 99283

== ENCOUNTER 2025-01-03 05:49 | Emergency (ER) | payer MEDICAID ==
--- OUTSIDE RECORDS SUMMARY | 2025-01-03 05:57 | XMS REPORT | Continuity of Care Document ---
Author Name Unknown Address [address] [facility] [address] [place] [address] Organization [facility] [place] Address [address] [facility] [place] [address] Care Team Providers Care Roofing Laborer Name Role Phone Paramjit CERON, Soila Montenegro Primary Care Physician STEPHANIE SPAIN Attending Clinician Unavailable JOHNNY DIAS Attending Clinician Unavailable YOSEF ELENA Attending Clinician Unava ilable [id number] Attending Clinician Unavailable MD LILI Attending Clinician Unavailab FIONA Martinez Attending Clinician Unavailable SOILA YUSUF Attending Clinician Unava ilable [id number] Attending Clinician Unavailable JAMESON JOHNSON Attending Clinician Unavailab CHANA Bill Attending Clinician UnavailTHOMAS Cornelius Attending Clinician Unavailable Stephanie Spain DO Attending Clinician [phone] Vern Ferreira MD Attending Clinician [phone] VERN FERREIRA Attending Clinician Unavailable Soila Yusuf MD Attending Clinician [phone] Johnny Martinez Attending Clinician [phone] Payers Payer Name Policy Type Policy Number Effective Date Expirati on Date Source [employer] SIGNATURE O 7 [id number] 2024 00:00:00 Problems Condition Name Condition Details [...] skin Disease Active 10-24 00:00: 00 Fay Evansybold - Externa l Hyperlipid emia Hyperlipid emia [...] original. Unchanged - Continue levothyro xine Fay Evansybold - Externa l Seasonal allergic rhinitis due [...] Unchanged - Follows with Neurology - Continue Drake Ayala - Externa l Acute medial meniscus [...] might be different from the original. IMO [id number] Fay Ayala UTI (urinary tract infection) , [...] e, carvedilo l Fay Ayala - Externa samia Hyperchole sterolemia Hyperchole sterolemia Disease Active 09-10 00:00: 00 Fay Ayala - Externa samia Allergies, Adverse Reactions, Alerts Allergy Name Allergy Type Status Severity Reaction(s) Onset Date Inactive Date Treating Clinician Comments Source Aspirin Propensi ty to adverse reaction s Active Diarrhea 09-10 00:00: 00 Fay Jaina l Lisinopr il Propensi ty to adverse reaction s Active Cough 09-10 00:00: 00 Fay Ayala Lisinopr il Propensi ty to adverse reaction s Active Cough 09-10 00:00: 00 Fay Ayala - Externa l Calcium Acetylsa licylate Propensi ty to adverse reaction s Active 07-29 00:00: 00 Other Reaction( s): diarrhea, stomach pain Fay Jaina samia Social History Social Habit Start Date Stop Date Quantity Comments Source Gender identity 2020-12-13 12:17:51 Identifies as female gender (finding) Fay Ayala - External History of tobacco use Cigarette Smoker Fay waddell - External Sexual orientation Fan Ayala - External ASSERTION Not Fay Ayala - External History of Occupation Fay Ayala - External Alcoholic beverage intake 2024-12-02 00:00:00 2024-12-02 00:00:00 Ex-drinker (finding) Fay Ayala - External [...] Education 2021-12-08 00:00:00 2021-12-08 00:00:00 16 Fay Lucy - External Sex 2020-08-11 17:06:55 2020-08-11 17:06:55 Female (finding) Fay Ayala - External Sex assigned at 1945 00:00:00 1945 00:00:00 F Fay Lucy - External Smoking Status Start Date Stop Date Source Ex-smoker 2023-09-27 00:00:00 2023-09-27 00:00:00 Fan treadwell Seevelina - External Medications Ordered Medication Name Filled Medication Name Start Date Stop Date Current Medication? Ordering Clinician Indication Dosage Frequency Signature (SIG) Comments Components Source Dryden-3 Fatty Acids (Fish Oil) 1000 MG oral Capsule 12-02 12:53: 40 Yes 2000mg QD Take 2 capsules (2,000 mg total) by mouth daily. Fay gracia Cholecalcif delilah (Vitamin D) 25 MCG (1000 UT) oral Tablet 12-02 12:53: 40 Yes 25U QD Take 25 units by mouth daily. Fay gracia methylPREDN ISolone 4 MG oral Tablet Therapy Pack 12-02 00:00: 00 Yes [id number] 1{man} Take 1 man by mouth See Admin Instructio ns Use as directed. Fay gracia Methocarbam ol 750 MG oral Tablet 12-02 00:00: 00 Yes [id number] 750mg Q.25D Take 1 tablet (750 mg total) by mouth 4 times daily. Fay gracia Tramadol HCl (ULTRAM) 50 MG oral Tablet 12-02 00:00: 00 Yes [id number] 50mg Q.25D Take 1 tablet (50 mg total) by mouth every 6 hours as needed for pain. Fay gracia Dryden-3 Fatty Acids (Fish Oil) 1000 MG oral Capsule 10-30 10:50: 56 Yes 2000mg QD Take 2 capsules (2,000 mg total) by mouth daily. Fay gracia Cholecalcif delilah (Vitamin D) 25 MCG (1000 UT) oral Tablet 10-30 10:50: 56 Yes 25U QD Take 25 units by mouth daily. Fay gracia Celecoxib (CeleBREX) 100 MG oral Capsule 10-30 00:00: 00 12-02 00:00 :00 No [id number] 100mg Q.5D Take 1 capsule (100 mg total) by mouth 2 times daily as needed for pain. Fay gracia Dryden-3 Fatty Acids (Fish Oil) 1000 MG oral Capsule 09-25 13:02: 46 Yes 2000mg QD Take 2 capsules (2,000 mg total) by mouth daily. Fay gracia Cholecalcif delilah (Vitamin D) 25 MCG (1000 UT) oral Tablet 09-25 13:02: 46 Yes 25U QD Take 25 units by mouth daily. Fay gracia Dryden-3 Fatty Acids (Fish Oil) 1000 MG oral Capsule 09-12 14:45: 19 Yes 2000mg QD Take 2 capsules (2,000 mg total) by mouth daily. Fay gracia Cholecalcif delilah (Vitamin D) 25 MCG (1000 UT) oral Tablet 09-12 14:45: 19 Yes 25U QD Take 25 units by mouth daily. Fay gracia Benzonatate (Tessalon Perles) 100 MG oral Capsule 09-12 00:00: 00 12-02 00:00 :00 No [id number] 100mg Q.[id number] 3D Take 1 capsule (100 mg total) by mouth 3 times daily as needed for cough. Fay gracia predniSONE (DELTASONE) 10 MG oral tablet 09-12 00:00: 00 10-30 00:00 :00 No [id number] 10mg QD Take 1 tablet (10 mg total) by mouth daily. Fay gracia Azithromyci n 250 MG oral Tablet 09-12 00:00: 00 09-18 04:59 :00 No [id number] Take 2 tablets by mouth on day 1 then 1 tablet by mouth daily for 4 days thereafter .. Fay gracia Dryden-3 Fatty Acids (Fish Oil) 1000 MG oral Capsule 08-22 15:04: 58 Yes 2000mg QD Take 2 capsules (2,000 mg total) by mouth daily. Fay gracia Cholecalcif delilah (Vitamin D) 25 MCG (1000 UT) oral Tablet 08-22 15:04: 58 Yes 25U QD Take 25 units by mouth daily. Fay gracia Tizanidine HCl 2 MG oral Tablet 08-22 00:00: 00 Yes [id number] 2mg QD Take 1 tablet (2 mg total) by mouth nightly as needed for muscle spasms. Fay gracia methylPREDN ISolone 4 MG oral Tablet Therapy Pack 08-22 00:00: 00 09-12 00:00 :00 No [id number] 1{man} Take 1 man by mouth See Admin Instructio ns Use as directed. Fay gracia Tramadol HCl (ULTRAM) 50 MG oral Tablet 08-22 00:00: 00 09-12 00:00 :00 No [id number] 50mg Q.[id number] 3D Take 1 tablet (50 mg total) by mouth every 8 hours as needed. Fay gracia Alendronate Sodium 35 MG oral Tablet 08-16 00:00: 00 Yes [id number] 35mg Q1W Take 1 tablet (35 mg total) by mouth once a week. Fay gracia Tramadol HCl (ULTRAM) 50 MG oral Tablet 07-12 00:00: 00 08-22 00:00 :00 No 50mg Q.[id number] 3D Take 1 tablet (50 mg total) by mouth every 8 hours as needed. Fay gracia Amlodipine Besylate 2.5 MG oral Tablet 2025-0 2-19 00:00: 00 Yes [id number] 2.5mg QD Take 1 tablet (2.5 mg total) by mouth daily. Fay gracia Carvedilol 25 MG oral Tablet 19 00:00: 00 Yes [id number] 25mg Q.5D Take 1 tablet (25 mg total) by mouth 2 times daily. Fay gracia Pravastatin Sodium 80 MG oral Tablet 1-31 00:00: 00 Yes [id number] 80mg QD Take 1 tablet (80 mg total) by mouth nightly. Fay gracia Levothyroxi ne Sodium 50 MCG oral Tablet 2023-05 1-04 00:00: 00 Yes [id number] 50ug QD Take 1 tablet (50 mcg total) by mouth daily. Fay gracia Pravastatin Sodium 80 MG oral Tablet 12-11 00:00: 00 Yes [id number] 80mg Take 1 tablet (80 mg total) by mouth every morning. Fay gracia Loratadine 10 MG oral Capsule 10-24 11:05: 06 10-24 00:00 :00 No 10mg Take 1 capsule (10 mg total) by mouth 2 times daily. Fay gracia Dryden-3 Fatty Acids (Fish Oil) 1000 MG oral Capsule 10-24 10:46: 27 Yes 2000mg QD Take 2 capsules (2,000 mg total) by mouth daily. Fay gracia Cholecalcif delilah (Vitamin D) 25 MCG (1000 UT) oral Tablet 10-24 10:46: 27 Yes 25U QD Take 25 units by mouth daily Fay gracia Loratadine 10 MG oral Capsule 10-24 00:00: 00 Yes [id number] 10mg QD Take 1 capsule (10 mg total) by mouth daily. Fay gracia Carvedilol 25 MG oral Tablet 22 00:00: 00 Yes [id number] 25mg Q.5D Take 1 tablet (25 mg total) by mouth 2 times daily. Fay gracia Amlodipine Besylate 2.5 MG oral Tablet 10-03 00:00: 00 Yes [id number] 2.5mg QD Take 1 tablet (2.5 mg total) by mouth daily. Fay gracia Tizanidine HCl 2 MG oral Tablet 09-21 00:00: 00 08-22 00:00 :00 No [id number] 2mg QD Take 1 tablet (2 mg total) by mouth nightly as needed for muscle spasms. Fay gracia Alendronate Sodium 70 MG oral Tablet 08-20 00:00: 00 Yes 70mg Q1W Take 1 [...] daily as needed for diarrhea. Fay gracia Dryden-3 Fatty Acids (Fish Oil) 1000 MG oral [...] 2 times daily. Fay gracia Cromolyn Sodium (NasalCrom) 5.2 MG/ACT nasal Aerosol Solution 07-24 00:00: 00 Yes [id number] 1{spray } QD Use 1 spray in each nostril daily as needed. Fay gracia Benzonatate (Tessalon Perles) 100 MG oral Capsule 07-24 00:00: 00 Yes [id number] 100mg Q.[id number] 3D Take 1 capsule (100 mg total) by mouth 3 times daily as needed for cough. Fay gracia Triamcinolo ne Acetonide 0.1 % apply externally Cream 07-24 00:00: 00 08-22 04:59 :00 No [id number] Apply to affected skin twice daily for 10 days. Fay gracia Carvedilol 25 MG oral Tablet 07-10 00:00: 00 Yes [id number] 25mg Take 1 tablet (25 mg total) by mouth 2 times daily. Fay gracia Amlodipine Besylate 2.5 MG oral Tablet 07-10 00:00: 00 Yes [id number] 2.5mg Take 1 tablet (2.5 mg total) by mouth daily. Fay gracia Pravastatin Sodium 80 MG oral Tablet 06-14 00:00: 00 Yes [id number] 80mg Take 1 tablet (80 mg total) by mouth every morning. Fay gracia Alendronate Sodium 70 MG oral Tablet 16 00:00: 00 Yes 70mg Take 1 tablet (70 mg total) by mouth once a week. Fay gracia Amoxicillin -Pot Clavulanate 500-125 MG oral Tablet 2022-05 00:00: 00 07-24 00:00 :00 No [id number] 1{tbl} Take 1 tablet by mouth 2 times daily. Fay gracia Dryden-3 Fatty Acids (Fish Oil) 1000 MG oral [...] Fexofenadin e HCl (MUCINEX ALLERGY OR) 2022-05 13:28: 20 Yes Take by mouth as needed Fay gracia Cromolyn Sodium (NASALCROM NA) 2022-05 13:28: 20 Yes by nasal route Fay gracia Alendronate Sodium 70 MG oral Tablet 2022-05 00:00: 00 Yes Take 1 tablet by mouth once a week Fay gracia Fexofenadin e HCl (MUCINEX ALLERGY OR) 2022-05 15:08: 53 Yes Take by mouth as needed Fay gracia Dryden-3 Fatty Acids (Fish Oil) 1000 MG oral [...] 2022-05 00:00: 00 07-24 00:00 :00 No [id number] 100mg Take 1 tablet (100 mg total) by mouth 2 times daily. Fay gracia Mupirocin (BACTROBAN) 2 % apply externally Ointment 2022-05 00:00: 00 07-24 00:00 :00 No [id number] Apply 1 applicatio n. topically 3 times daily. Fay gracia Carvedilol 25 MG oral Tablet 01-17 00:00: 00 Yes [id number] 25mg Take 1 tablet (25 mg total) by mouth 2 times daily. Fay gracia Amlodipine Besylate 2.5 MG oral Tablet 01-17 00:00: 00 Yes [id number] 2.5mg Take 1 tablet (2.5 mg total) by mouth daily. Fay gracia Levothyroxi ne Sodium 50 MCG oral Tablet 01-05 00:00: 00 Yes [id number] 50ug QD Take 1 tablet (50 mcg total) by mouth daily. Fay gracia Alendronate Sodium 70 MG oral Tablet 12-13 00:00: 00 Yes Take 1 tablet by mouth once a week Fay gracia Tizanidine HCl 2 MG oral Tablet 11-11 00:00: 00 Yes [id number] TAKE 1 TABLET BY MOUTH NIGHTLY NEEDED FOR MUSCLE SPASM Fay gracia Dryden-3 Fatty Acids (Fish Oil) 1000 MG oral [...] MG oral Tablet 11-04 00:00: 00 Yes [id number] 2.5mg Take 1 tablet (2.5 mg total) by mouth daily Fay gracia Carvedilol 25 MG oral Tablet 23 00:00: 00 Yes [id number] 25mg Take 1 tablet (25 mg total) by mouth 2 times daily aFy gracia Metformin HCl ER 500 MG oral TABLET SR 24 HR 11-03 00:00: 00 Yes TAKE 2 TABLETS BY MOUTH ONCE DAILY WITH BREAKFAST Fay gracia Levothyroxi ne Sodium 50 MCG oral Tablet 10-10 00:00: 00 Yes [id number] Take 1 tablet by mouth once daily Fay gracia Alendronate Sodium 70 MG oral Tablet 09-26 00:00: 00 Yes Take 1 tablet by mouth once a week Fay gracia Pravastatin Sodium 80 MG oral Tablet 2021-05 00:00: 00 Yes [id number] 80mg Take 1 tablet (80 mg total) by mouth every morning Fay gracia Dryden-3 Fatty Acids (Fish Oil) 1000 MG oral [...] MG oral Capsule 2021-05 00:00: 00 Yes [id number] 2mg QD Take 1 capsule (2 mg total) by mouth nightly as needed for muscle spasms Fay gracia Amlodipine Besylate 2.5 MG oral Tablet 2021-05 00:00: 00 Yes [id number] Take 1 tablet by mouth once daily Fay gracia Alendronate Sodium 70 MG oral Tablet 01-04 00:00: 00 Yes Take 1 tablet by mouth once a week Fay gracia Gabapentin 100 MG oral Capsule 12-08 00:00: 00 03-22 00:00 :00 No [id number] 100mg Q.[id number] 3D Take 1 capsule (100 mg total) by mouth 3 times daily as needed Fay gracia Carvedilol 25 MG oral Tablet 11-13 00:00: 00 Yes [id number] 25mg Take 1 tablet (25 mg total) by mouth 2 times daily Fay gracia Levothyroxi ne Sodium 50 MCG oral Tablet 10-20 00:00: 00 Yes [id number] 50ug Take 1 tablet (50 mcg total) by mouth daily Fay gracia Metformin HCl ER 500 MG oral TABLET SR 24 HR 10-20 00:00: 00 Yes 1000mg Take 2 tablets (1,000 mg total) by mouth daily (with breakfast) Fay gracia Amlodipine Besylate 5 MG oral Tablet 10-07 10:57: 18 Yes 5mg Take 5 mg by mouth daily Fay Ayala Dryden-3 Fatty Acids (Fish Oil) 1000 MG oral [...] MG oral tablet 10-07 00:00: 00 Yes [id number] One pill twice daily for 7 days then one pill daily for 7 days Fay Ayala Carvedilol 25 MG oral Tablet 4-04 00:00: 00 Yes [id number] Take 1 tablet by mouth twice daily Fay Ayala Acetaminoph en-Codeine #3 300-30 MG oral Tablet 3-28 00:00: 00 Yes [id number] 1{tbl} Q.25D Take 1 tablet by mouth every 6 hours as needed Fay Ayala Levothyroxi ne Sodium 50 MCG oral Tablet 15 00:00: 00 Yes [id number] Take 1 tablet by mouth once daily Fay Ayala Tizanidine HCl 4 MG oral Tablet -11 00:00: 00 Yes [id number] 4mg Q.[id number] 3D Take 1 tablet (4 mg total) by mouth every 8 hours as needed for muscle spasms Use sparingly Fay Ayala Celecoxib (CeleBREX) 200 MG oral Capsule 07-22 00:00: 00 Yes [id number] 200mg Take 1 capsule (200 mg total) by mouth in the morning and 1 capsule (200 mg total) in the evening. Fay Ayala Pravastatin Sodium 80 MG oral Tablet 07 00:00: 00 Yes [id number] 80mg Take 1 tablet (80 mg total) by mouth in the morning. Fay Ayala - Externa l Amlodipine Besylate 5 MG oral Tablet 07-06 10:46: 35 Yes 5mg Take 5 mg by mouth daily Fay Ayala Dryden-3 Fatty Acids (Fish Oil) 1000 MG oral [...] MG oral Tablet 07-06 00:00: 00 Yes [id number] 1{tbl} Q6H Take 1 tablet by mouth every 6 hours as needed Fay Ayala Amlodipine Besylate 5 MG oral Tablet 05-27 13:04: 11 Yes 5mg Take 5 mg by mouth daily Fay Ayala Dryden-3 Fatty Acids (Fish Oil) 1000 MG oral [...] MG oral Capsule 05-27 00:00: 00 Yes [id number] 200mg Take 1 capsule (200 mg total) by mouth 2 times daily Fay Ayala Tramadol HCl 50 MG oral Tablet 05-27 00:00: 00 Yes [id number] 50mg Q6H Take 1 tablet (50 mg total) by mouth every 6 hours as needed for pain Fay Ayala Amlodipine Besylate 2.5 MG oral Tablet 2020-05 00:00: 00 Yes [id number] 2.5mg Take 1 tablet (2.5 mg total) by mouth daily Fay Ayala Amlodipine Besylate 5 MG oral Tablet 02-01 10:14: 09 Yes 5mg Take 5 mg by mouth daily Fay Ayala Dryden-3 Fatty Acids (Fish Oil) 1000 MG oral [...] MG oral Tablet 01-22 00:00: 00 Yes [id number] 200mg Q.[id number] 3D Take 1 tablet (200 mg total) by mouth 3 times daily as needed for pain Will turn urine bright orange Fay Ayala Tamsulosin HCl 0.4 MG oral Capsule 01-22 00:00: 00 Yes [id number] .4mg Take 1 capsule (0.4 mg total) by mouth daily Fay Ayala Nitrofurant oin Monohyd Macro 100 MG oral Capsule 01-22 00:00: 00 01-28 04:59 :00 No [id number] 100mg Take 1 capsule (100 mg total) by mouth 2 times daily for 5 days Fay Ayala Carvedilol 25 MG oral Tablet 01-21 00:00: 00 Yes [id number] 25mg Take 1 tablet (25 mg total) by mouth 2 times daily Fay Ayala Levothyroxi ne Sodium 50 MCG oral Tablet 01-21 00:00: 00 Yes [id number] 50ug Take 1 tablet (50 mcg total) by mouth daily Fay Ayala Pravastatin Sodium 80 MG oral Tablet 01-21 00:00: 00 Yes [id number] 80mg Take 1 tablet (80 mg total) by mouth daily Fay Ayala Amlodipine Besylate 5 MG oral Tablet 01-04 10:02: 51 Yes 5mg Take 5 mg by mouth daily Fay Ayala Dryden-3 Fatty Acids (Fish Oil) 1000 MG oral [...] Ayala Alendronate Sodium 70 MG oral Tablet 2021-0 7-12 00:00: 00 Yes Take 1 tablet by mouth once a week Fay Ayala Metformin HCl ER 500 MG oral TABLET SR 24 HR 5-28 00:00: 00 Yes TAKE 2 TABLETS BY MOUTH ONCE DAILY WITH BREAKFAST Fay Ayala Immunizations Ordered Immunization Name Filled Immunization Name Date Status Comments Source Influenza Virus Vaccine, High Dose, Age 65 And Up 2022-01-13 00:00:00 Completed Fay Ayala - External Influenza Virus Vaccine, Quadrivalent, High Dose, Age 65 And Up 2022-01-13 00:00:00 Completed Fay Ayala - External Influenza Virus Vaccine, High Dose, Age 65 And Up 2022-01-13 00:00:00 Completed Fay Ayala - External Influenza Virus Vaccine, Quadrivalent, High Dose, Age 65 And Up 2022-01-13 00:00:00 Completed Fay Ayala - External Covid-19 Vaccine (Telvent Git), Mrna-lnp, Aldair Protein, Pf, 30mcg/0.3ml,IM 2021-02-12 00:00:00 Completed Fay Jaimesold Covid-19 Vaccine (Telvent Git), Mrna-lnp, Aldair Protein, Pf, 30mcg/0.3ml,IM 2021-02-12 00:00:00 Completed Fay ntaanaelold Covid-19 Vaccine (Telvent Git), Mrna-lnp, Aldair Protein, Pf, 30mcg/0.3ml,IM 2021-02-12 00:00:00 Completed Fay Ayala Covid-19 Vaccine (Telvent Git), Mrna-lnp, Aldair Protein, Pf, 30mcg/0.3ml,IM 2021-02-12 00:00:00 Completed Fay Jaimesold Covid-19 Vaccine (Telvent Git), Mrna-lnp, Aldair Protein, Pf, 30mcg/0.3ml,IM 2021-02-12 00:00:00 Completed Fay Seybold - External Covid-19 Vaccine (Telvent Git), Mrna-lnp, Aldair Protein, Pf, 30mcg/0.3ml,IM 2021-02-12 00:00:00 Completed Fay Ayala - External Influenza Virus Vaccine, Quadrivalent, High [...] Completed Fay Seybold Covid-19 Vaccine (Pfizer), Mrna-lnp, Aldiar Protein, Pf, 30mcg/0.3ml,IM 2020-07-29 00:00:00 Completed Fay [...] Shingles SQ (Zostavax) 2013-01-21 00:00:00 Completed Fay Ayala Covid-19 Vaccine (Telvent Git), Mrna-lnp, Aldair Protein, Pf, 30mcg/0.3ml,IM Unknown Completed Fay Jaimesol d - External Tdap- (Boostrix, Adacel) Unknown Completed Fay Evansold - External Influenza Virus Vaccine, age 6 months and up Unknown Completed Fay Evansold - External Pneumococcal Vaccine, Polysaccharide Unknown Completed Fay Evansybol d - External Pneumococcal Vaccine, Conjugate 13 Unknown Completed Fay Evansybold - External Shingles SQ (Zostavax) Unknown Completed Fay Evansybold - External Shingles IM (Shingrix) Unknown Completed Fay Evansold - External Influenza Virus Vaccine, Quadrivalent, High Dose, Age 65 And Up Unknown Completed Fay Watson eybold - External Influenza Virus Vaccine, High Dose, Age 65 And Up Unknown Completed Fay Evansybold - External Pneumococcal Vaccine, Conjugate 20 Unknown Completed Fay Evansold - External COVID-19 VACCINE(MODERNA)(12YR S+) Unknown Completed Fay Ayala - External RSV, Arexvy Unknown Completed Fay Shirley eybold - External Influenza Virus Vaccine, Unspecified Formulation Unknown Completed Fay Evansold - External Covid-19 Vaccine (Telvent Git), Mrna-lnp, Aldair Protein, Pf, 30mcg/0.3ml,IM Unknown Completed Fay Jaimesol d - External Tdap- (Boostrix, Adacel) Unknown Completed Fay Evansbairon - External Influenza Virus Vaccine, age 6 months and up Unknown Completed Fay Evansbairon - External Pneumococcal Vaccine, Polysaccharide Unknown Completed Fay Evansol d - External Pneumococcal Vaccine, Conjugate 13 Unknown Completed Fay Ayala - External Shingles SQ (Zostavax) Unknown Completed Fay Ayala - External Shingles IM (Shingrix) Unknown Completed Fay Evansold - External Influenza Virus Vaccine, Quadrivalent, High Dose, Age 65 And Up Unknown Completed Fay S eybold - External Influenza Virus Vaccine, High Dose, Age 65 And Up Unknown Completed Fay Seybold - External Pneumococcal Vaccine, Conjugate 20 Unknown Completed Fay Evansybold - External COVID-19 VACCINE(MODERNA)(12YR S+) Unknown Completed Fay Evansybold - External RSV, Arexvy Unknown Completed Fay S eybold - External Influenza Virus Vaccine, Unspecified Formulation Unknown Completed Fay Seybold - External Covid-19 Vaccine (Pfizer), Mrna-lnp, Aldair Protein, Pf, 30mcg/0.3ml,IM Unknown Completed Fay Evansybol d - External Tdap- (Boostrix, Adacel) Unknown [...] Aldair Protein, Pf, 30mcg/0.3ml,IM Unknown Completed Fay Evansybol d - External Tdap- (Boostrix, Adacel) Unknown Completed Fay Evansybold - External Influenza Virus Vaccine, age 6 [...] External COVID-19 VACCINE(MODERNA)(FALL 2022)(12YRS+) Unknown Completed Fay Evansybold - External RSV, Arexvy Unknown Completed Fay [...] External COVID-19 VACCINE(MODERNA)(FALL 2022)(12YRS+) Unknown Completed Fay Evansybold - External RSV, Arexvy Unknown Completed Fay S eybold - External Covid-19 Vaccine (Telvent Git), Mrna-lnp, Aldair Protein, Pf, 30mcg/0.3ml,IM Unknown Completed Fay Evansol d - External Tdap- (Boostrix, Adacel) Unknown Completed Fay Evansybold - External Influenza Virus Vaccine, age 6 months and up Unknown Completed Fay Evansybold - External Pneumococcal Vaccine, Polysaccharide Unknown Completed Fay Seybol d - External Pneumococcal Vaccine, Conjugate 13 Unknown Completed Fay Evansybold - External Shingles SQ (Zostavax) Unknown Completed [...] Mrna-lnp, Aldair Protein, Pf, 30mcg/0.3ml,IM [facility] (Boostrix, Adacel) Unknown Completed Fay Evansybold - External Influenza Virus Vaccine, age 6 [...] - External COVID-19 VACCINE(MODERNA)(FALL 2022)(12YRS+) Unknown [facility], Arexvy Unknown Completed Fay S eybold - External Covid-19 Vaccine (Telvent Git), Mrna-lnp, Aldair Protein, Pf, 30mcg/0.3ml,IM [facility]- (Boostrix, Adacel) [facility] Influ[facility] Vaccine, age 6 months and up [facility] Pneum[facility], Polysaccharide Unknown [facility] Pneumococcal Vaccine, Conjugate 13 Unknown Com[facility] - External Shingles SQ (Zostavax) Unknown Completed Fay Seybold - External Shingles IM (Shingrix) Unknown [facility] - External Influenza Virus Vaccine, Quadrivalent, High [...] Unknown Completed Fay Seybold - External COVID-19 VACCINE(MODERNA)(12YR S+) Unknown Completed Fay Seybold - External RSV, Arexvy Unknown Completed [facility] - External Influenza Virus Vaccine, Unspecified Formulation Unknown Completed Fay Seybold - External Covid-19 Vaccine (Telvent Git), Mrna-lnp, Aldair Protein, Pf, 30mcg/0.3ml,IM Unknown [facility]ostrix, Adacel) [facility] Vaccine, age 6 months and up Unknown Completed Fay Seybold - External Pneumococcal Vaccine, Polysaccharide Unknown Completed Fay Seybol d - External Pneumococcal Vaccine, Conjugate 13 Unknown Completed Fay Evansybold - External Shingles SQ (Zostavax) Unknown Completed Fay ybold - External Shingles IM (Shingrix) Unknown Completed Fay ybold - External Influenza Virus Vaccine, Quadrivalent, High Dose, Age 65 And Up Unknown Completed Fay S eybold - External Influenza Virus Vaccine, High Dose, Age 65 And Up Unknown Completed Fay Seybold - External Pneumococcal Vaccine, Conjugate 20 Unknown Completed Fay Seybold - External COVID-19 VACCINE(MODERNA)(12YR S+) Unknown Completed Fay Seybold - External RSV, Arexvy Unknown Completed Fay S eybold - External Influenza Virus Vaccine, Unspecified Formulation Unknown Completed Fay Seybold - External Covid-19 Vaccine (Pfizer), Mrna-lnp, Aldair Protein, Pf, 30mcg/0.3ml,IM Unknown Completed Fay Jaimesol d - External Tdap- (Boostrix, Adacel) Unknown Completed Fay Ayala - External Influenza Virus Vaccine, age 6 months and up Unknown Completed Fay Ayala - External Pneumococcal Vaccine, Polysaccharide Unknown Completed Fay Jaimesol d - External Pneumococcal Vaccine, Conjugate 13 Unknown Completed Fay Ayala - External Shingles SQ (Zostavax) Unknown Completed Fay Ayala - External Shingles IM (Shingrix) Unknown Completed Fay Jaimesold - External Influenza Virus Vaccine, Quadrivalent, High Dose, Age 65 And Up Unknown Completed Fay Watson eybold - External Influenza Virus Vaccine, High Dose, Age 65 And Up Unknown Completed Fay Jaimesold - External Pneumococcal Vaccine, Conjugate 20 Unknown Com[facility] VACCINE(MODERNA)(12YR S+) Unknown Completed Fay Jaimesold - External RSV, Arexvy Unknown Completed Fay eybold - External Influenza Virus Vaccine, Unspecified Formulation Unknown Completed Fay Ayala - External Vital Signs Vital Name Observation Time Observation Value Comments S ource Systolic blood pressure 2024-12-02 17:49:00 134 mm[Hg] Fay Jaimeso ld - External Diastolic blood pressure 2024-12-02 17:49:00 60 mm[Hg] Fay Jaimeso ld - External Heart rate 2024-12-02 17:49:00 80 /min Linda lan Seybold - External Body temperature 2024-12-02 17:49:00 36.44 Kalli Fay Evansybold - External Respiratory rate 2024-12-02 17:49:00 16 /min Fay Evansybold - External Body height 2024-12-02 17:49:00 152.4 cm Ana porras Seybold - External Body weight 2024-12-02 17:49:00 65.318 kg Ana porras Seybold - External BMI 2024-12-02 17:49:00 28.12 kg/m2 Ana porras Seybold - External Oxygen saturation in Arterial blood by Pulse oximetry 2024-12-02 17:49:00 95 /min Fay Jaimeso ld - External Systolic blood pressure 2024-10-30 15:44:00 128 mm[Hg] Fay Seybo ld - External Diastolic blood pressure 2024-10-30 15:44:00 72 mm[Hg] Fay Seybo ld - External Heart rate 2024-10-30 15:44:00 72 /min Kelse y Seybold - External Body temperature 2024-10-30 15:44:00 36.39 Kalli Fay Seybold - External Respiratory rate 2024-10-30 15:44:00 14 /min Fay Seybold - External Body height 2024-10-30 15:44:00 152.4 cm Ana ey Seybold - External Body weight 2024-10-30 15:44:00 65.772 kg Ana ey Seybold - External BMI 2024-10-30 15:44:00 28.32 kg/m2 Ana ey Seybold - External Oxygen saturation in Arterial blood by Pulse oximetry 2024-10-30 15:44:00 97 /min Fay Seybo ld - External Systolic blood pressure 2024-09-12 19:43:00 132 mm[Hg] Fay Seybo ld - External Diastolic blood pressure 2024-09-12 19:43:00 72 mm[Hg] Fay Seybo ld - External Heart rate 2024-09-12 19:43:00 83 /min Nahidse y Seybold - External Body temperature 2024-09-12 19:43:00 36.56 Kalli Fay Seybold - External Respiratory rate 2024-09-12 19:43:00 16 /min Fay Seybold - External Body height 2024-09-12 19:43:00 152.4 cm Ana ey Seybold - External Body weight 2024-09-12 19:43:00 65.499 kg Ana ey Seybold - External BMI 2024-09-12 19:43:00 28.20 kg/m2 Ana ey Seybold - External Oxygen saturation in Arterial blood by Pulse oximetry 2024-09-12 19:43:00 97 /min Fay Seybo ld - External Systolic blood pressure 2024-08-22 20:13:00 160 mm[Hg] Fay Seybo ld - External Diastolic blood pressure 2024-08-22 20:13:00 77 mm[Hg] Fay Seybo ld - External Heart rate 2024-08-22 19:58:00 81 /min Kelse y Seybold - External Body temperature 2024-08-22 19:58:00 36.33 Kalli Fay Seybold - External Respiratory rate 2024-08-22 19:58:00 15 /min Fay Seybold - External Body height 2024-08-22 19:58:00 152.4 cm Ana ey Seybold - External Body weight 2024-08-22 19:58:00 67.132 kg Ana ey Seybold - External BMI 2024-08-22 19:58:00 28.90 kg/m2 Ana ey Seybold - External Oxygen saturation in Arterial blood by Pulse oximetry 2024-08-22 19:58:00 96 /min Fay Seybo ld - External Systolic blood pressure 2024-01-25 14:04:00 133 mm[Hg] Fay Seybo ld - External Diastolic blood pressure 2024-01-25 14:04:00 74 mm[Hg] Fay Seybo ld - External Heart rate 2024-01-25 14:04:00 77 /min Nahidse y Seybold - External Respiratory rate 2024-01-25 [...] External Heart rate 2023-10-25 15:44:00 78 /min Nahidse y Seybold - External Body temperature 2023-10-25 [...] External Heart rate 2023-03-08 18:24:00 76 /min Kelse y Seybold - External Body temperature 2023-03-08 [...] blood pressure 2023-02-20 20:05:00 64 mm[Hg] Fay Seybo ld - External Heart rate 2023-02-20 20:05:00 76 /min Kelse y Seybold - External Body temperature 2023-02-20 [...] External Heart rate 2022-11-10 18:06:00 73 /min Nahidse y Seybold - External Body temperature 2022-11-10 [...] Pulse oximetry 2022-11-10 18:06:00 97 /min Fay Evansybo ld - External Systolic blood pressure 2022-03-22 17:00:00 126 mm[Hg] Fay Seybo ld - External Diastolic blood pressure 2022-03-22 17:00:00 60 mm[Hg] Fay Seybo ld - External Heart rate 2022-03-22 17:00:00 82 /min Kelse y Seybold - External Body temperature 2022-03-22 [...] Seybold Body temperature 2021-02-01 15:08:00 36.28 Kalli Afy Seybold Respiratory rate 2021-02-01 15:08:00 16 /min [...] 2021-01-22 14:27:00 28.20 kg/m2 Ana ey Seybold Procedures Procedure Date / Time Performed Performing Clinicia n Source QUANTAF 2024-01-25 09:53:59 Stephanie Spain - External Encounters Start Date/Time End Date/Time Encounter Type Admission Type Attending [facility] Care Department Encounter ID Source 2024-07-29 14:23:00 Outpatient STLMLC STLMLC [id number] [facility] 2024-07-22 09:51:00 Outpatient STLMLC STLMLC [id number] [facility] 2021-07-22 09:13:03 Outpatient STLMLC STLMLC [id number] [facility] 2024-12-16 00:00:00 2024-12-16 00:00:00 Outpatient STEPHANIE SPAIN [id number] Fay Ayala 2024-12-12 00:00:00 2024-12-12 00:00:00 Outpatient STEPHANIE SPAIN [id number] Fay Evansybbairon 2024-12-02 13:00:00 2024-12-02 13:00:00 Outpatient JOHNNY DIAS FAY [facility] [id number] Fay Evans[facility]on 2024-11-27 00:00:00 2024-11-27 00:00:00 Outpatient PREZASTEPHANIE WatsonROMULO [facility]E [id number] Fay Evansybb[facility]on 2024-10-30 11:00:00 2024-10-30 11:00:00 Outpatient PREZASSTEPHANIE FAY [id number] Fay Evansybbairon 2024-09-25 13:00:00 2024-09-25 13:00:00 Outpatient ELENAYOSEF PARMAR FAY [facility] [id number] [facility] 2024-09-19 14:30:00 2024-09-19 14:30:00 Outpatient PREZAS, STEPHANIE FAY [facility] [id number] [facility] 2024-09-19 14:30:00 2024-09-19 14:30:00 Outpatient PREZAS, STEPHANIE FAY FAY [id number] [facility] 2024-09-13 00:00:00 2024-09-13 00:00:00 Outpatient PREZAS, STEPHANIE FAY [facility] [id number] [facility] 2024-09-12 15:15:00 2024-09-12 15:15:00 Outpatient EXK217Gama MONROE [id number] [facility] 2024-09-12 14:45:00 2024-09-12 14:45:00 Outpatient PREZAS, STEPHANIE FAY [facility] [id number] [facility] 2024-09-11 00:00:00 2024-09-11 00:00:00 Outpatient MD FAY MARTIN [id number] [facility] 2024-08-29 10:30:00 2024-08-29 10:30:00 Outpatient JOHNNY DIAS [id number] [facility] 2024-08-27 16:30:00 2024-08-27 16:30:00 Outpatient JOHNNY DIAS [id number] [facility] 2024-08-26 14:30:00 2024-08-26 14:30:00 Outpatient JOHNNY DIAS FAY [facility] [id number] [facility] 2024-08-23 00:00:00 2024-08-23 00:00:00 Outpatient MD FAY MARTIN [id number] [facility] 2024-08-22 15:30:00 2024-08-22 15:30:00 Outpatient ARUN JOHNNY FAY [facility] [id number] [facility] 2024-08-22 00:00:00 2024-08-22 00:00:00 Outpatient FAY [facility] [id number] [facility] 2024-08-22 00:00:00 2024-08-22 00:00:00 Outpatient FAY [facility]E [id number] [facility] 2024-08-16 00:00:00 2024-08-16 00:00:00 Outpatient PREZASSTEPHANIE FAY [facility] [id number] [facility] 2024-08-13 00:00:00 2024-08-13 00:00:00 Outpatient PREZASYIFANSTEPHANIELORIN [facility]ROE [id number] [facility] 2024-08-01 00:00:00 2024-08-01 00:00:00 Outpatient PREZASYIFANSTEPHANIELORIN MONROE [id number] [facility] 2024-07-22 00:00:00 2024-07-22 00:00:00 Outpatient PREZASYIFANSTEPHANIELORIN MONROE [id number] [facility] 2024-07-22 00:00:00 2024-07-22 00:00:00 Outpatient FAY MONROE [id number] Fay Seybold 2024-07-22 00:00:00 2024-07-22 00:00:00 Outpatient MD FAY MARTIN [id number] Fay Seybold 2024-07-19 00:00:00 2024-07-19 00:00:00 Outpatient PREZAS STEPHANIE [facility]ROE [id number] Fay Seybold 2024-07-19 00:00:00 2024-07-19 00:00:00 Outpatient FAY MONROE [id number] Fay ybbairon 2024-07-19 00:00:00 2024-07-19 00:00:00 Outpatient MD FAY MARTIN [id number] Fay Seybbairon 2024-07-19 00:00:00 2024-07-19 00:00:00 Outpatient ALEJANDROFIONA FAY [facility] [id number] [facility] 2024-07-16 00:00:00 2024-07-16 00:00:00 Outpatient PREZASSTEPHANIE [id number] [facility] 2024-07-05 14:30:00 2024-07-05 14:30:00 Outpatient YOSEF ELENA [id number] [facility] 2024-07-03 15:30:00 2024-07-03 15:30:00 Outpatient PREZAS, STEPHANIE [facility]E [id number] [facility] 2024-07-03 00:00:00 2024-07-03 00:00:00 Outpatient PREZAS, STEPHANIE [facility]E [id number] [facility] 2024-06-13 00:00:00 2024-06-13 00:00:00 Outpatient SOILA YUSUF [id number] [facility] 2024-05-02 11:00:00 2024-05-02 11:00:00 Outpatient PREZAS, STEPHANIE FAY [facility] [id number] [facility] 2024-04-25 00:00:00 2024-04-25 00:00:00 Outpatient PREZASSTEPHANIE [id number] Fay Seybold 2024-04-23 12:30:00 2024-04-23 12:30:00 Outpatient LABoHod MONROE [id number] Fay Seybold 2024-04-12 13:00:00 2024-04-12 13:00:00 Outpatient YOSEF ELENA [id number] Fay Seybold 2024-04-05 14:00:00 2024-04-05 14:00:00 Outpatient YOSEF ELENA FAY [facility] [id number] Fay Seybold 2024-04-05 00:00:00 2024-04-05 00:00:00 Outpatient STEPHANIE SPAIN FAY [facility] [id number] Fay Seybold 2024-03-18 00:00:00 2024-03-18 00:00:00 Outpatient STEPHANIE SPAIN FAY [facility] [id number] Fay Seybold 2024-03-04 15:00:00 2024-03-04 15:00:00 Outpatient ARUN JOHNYN [facility] [id number] Fay Seybold 2024-03-01 00:00:00 2024-03-01 00:00:00 Outpatient SHANESamia JOHNNY [facility]ROE [id number] Fay Seybold 2024-03-01 00:00:00 2024-03-01 00:00:00 Outpatient MD FAY MARTIN [id number] Fay Seybold 2024-02-20 00:00:00 2024-02-20 00:00:00 Outpatient STEPHANIE SPAIN FAY [facility] [id number] Fay Seybold 2024-02-16 00:00:00 2024-02-16 00:00:00 Outpatient FAY MONROE [id number] Fay Seybold 2024-02-12 00:00:00 2024-02-12 00:00:00 Outpatient ARUN JOHNNY [facility] [id number] Fay Seybold 2024-01-29 00:00:00 2024-01-29 00:00:00 Outpatient AFY [facility] [id number] Fay Seybold 2024-01-29 00:00:00 2024-01-29 00:00:00 Outpatient FAY MONROE [id number] Fay Seybold 2024-01-25 09:30:00 2024-01-25 09:30:00 Outpatient PRADIP STEPHANIE [facility]ROE [id number] Fay Seybold 2024-01-25 00:00:00 2024-01-25 00:00:00 Outpatient MD FAY MARTIN [id number] Fay Evansbairon 2023-12-12 00:00:00 2023-12-12 00:00:00 Outpatient PARAMJITSOILA DENSON FAY [facility] [id number] Fay bairon 2023-11-03 14:15:00 2023-11-03 14:15:00 Outpatient STEPHANIE SPAIN FAY [facility] [id number] [facility] 2023-10-30 00:00:00 2023-10-30 00:00:00 Outpatient STEPHANIE SPAIN FAY [facility] [id number] [facility]ay [facility] 2023-10-26 00:00:00 2023-10-26 00:00:00 Outpatient STEPHANIE SPAIN FAY [facility] [id number] [facility] 2023-10-25 11:20:00 2023-10-25 11:20:00 Outpatient SURJIT FAY [facility] [id number] [facility] 2023-10-25 10:30:00 2023-10-25 10:30:00 Outpatient STEPHANIE SPAIN FAY [facility] [id number] [facility] 2023-10-11 16:00:00 2023-10-11 16:00:00 [facility]patient [facility]LE[facility] [id number] [facility] 2023-10-04 00:00:00 2023-10-04 00:00:00 Outpatient YOANAMORAIMAYIFAN WatsonLORIN [facility]E [id number] [facility] 2023-09-27 11:45:00 2023-09-27 11:45:00 Outpatient YOSEF ELENA [id number] [facility] 2023-09-22 00:00:00 2023-09-22 00:00:00 Outpatient MD [facility] [id number] [facility]:00:00 2023-09-21 00:00:00 Outpatient MD FAY MARTIN [id number] [facility] 2023-09-18 00:00:00 2023-09-18 00:00:00 Outpatient STEPHANIE SPAINROMULO MONROE [id number] Fay Seybb[facility]on 2023-08-19 00:00:00 2023-08-19 00:00:00 Outpatient ALEJANDROFIONA FAY [facility] [id number] Fay [facility] 2023-07-26 00:00:00 2023-07-26 00:00:00 Outpatient FAY MONROE [id number] Fay Evansybold 2023-07-26 00:00:00 2023-07-26 00:00:00 Outpatient FAY MONROE [id number] Fay Seybbairon 2023-07-25 09:50:00 2023-07-25 09:50:00 Outpatient LAB90 FAY MONROE [id number] Fay Sey[facility] 2023-07-25 09:00:00 2023-07-25 09:00:00 Outpatient STEPHANIE SPAIN FAY [facility] [id number] Fay Seybold 2023-07-08 00:00:00 2023-07-08 00:00:00 Outpatient STEPHANIE SPAIN FAY [facility] [id number] Fay Seybold 2023-07-07 00:00:00 2023-07-07 00:00:00 Outpatient FAY MONROE [id number] Fay Seybold 2023-06-10 00:00:00 2023-06-10 00:00:00 Outpatient SOILA YUSUF [id number] Fay Seybold 2023-05-26 00:00:00 2023-05-26 00:00:00 Outpatient ALEJANDROFIONA FAY [facility]E [id number] Fay Seybold 2023-03-13 00:00:00 2023-03-13 00:00:00 Outpatient JAMESON JOHNSON [id number] Fay Seybold 2023-03-13 00:00:00 2023-03-13 00:00:00 Outpatient JAMESON JOHNSON [id number] Fay Seybold 2023-03-11 00:00:00 2023-03-11 00:00:00 Outpatient SOILA YUSUF [id number] Fay Seybold 2023-03-10 10:55:00 2023-03-10 10:55:00 Outpatient LAB90 FAY FAY [id number] [facility] 2023-03-09 00:00:00 2023-03-09 00:00:00 Outpatient STEPHANIE SPAINROMULO MONROE [id number] Fay [facility] 2023-03-08 13:30:00 2023-03-08 13:30:00 Outpatient ELIZABETH JAMESON [facility]AY [facility] [id number] [facility] 2023-03-08 12:35:00 2023-03-08 12:35:00 Outpatient LAB90 FAY FAY [id number] [facility] 2023-03-06 13:30:00 2023-03-06 13:30:00 Outpatient JAMESON JOHNSON FAY [facility] [id number] [facility] 2023-02-27 11:00:00 2023-02-27 11:00:00 Outpatient PRADIPSTEPHANIE FAY [facility]ROE [id number] [facility] 2023-02-27 00:00:00 2023-02-27 00:00:00 Outpatient ALEJANDRO FIONA FAY [facility] [id number] [facility] 2023-02-23 00:00:00 2023-02-23 00:00:00 Outpatient SOILA YUSUF [id number] [facility] 2023-02-20 15:30:00 2023-02-20 15:30:00 Outpatient JAMESON JOHNSON [id number] [facility] 2023-02-17 15:30:00 2023-02-17 15:30:00 Outpatient CHANA DA SILVA [id number] [facility] 2023-02-17 00:00:00 2023-02-17 00:00:00 Outpatient SOILA YUSUF [id number] [facility] 2023-02-17 00:00:00 2023-02-17 00:00:00 Outpatient PREZAS, STEPHANIE MONROE [id number] [facility] 2023-02-17 00:00:00 2023-02-17 00:00:00 Outpatient HUNDLJOHNNY FAY [facility]E [id number] Fay Seybold 2023-02-09 00:00:00 2023-02-09 00:00:00 Outpatient PREZAS, STEPHANIE FAY [place] [id number] Fay Seybold 2023-02-06 00:00:00 2023-02-06 00:00:00 Outpatient PREZAS, STEPHANIE FAY [place] [id number] Fay Seybold 2023-01-14 00:00:00 2023-01-14 00:00:00 Outpatient PREZAS, STEPHANIE FAY [facility] [id number] Fay Seybold 2023-01-05 00:00:00 2023-01-05 00:00:00 Outpatient PREZAS, STEPHANIE FAY [facility]E [id number] [facility] 2023-01-01 00:00:00 2023-01-01 00:00:00 Outpatient PREZAS, STEPHANIE FAY [facility] [id number] [facility] 2022-12-11 00:00:00 2022-12-11 00:00:00 Outpatient AGAFIONA FAY [facility]ROE [id number] Fay Seybold 2022-11-28 00:00:00 2022-11-28 00:00:00 Outpatient PREZAS, STEPHANIE FAY [place] [id number] Fay Seybold 2022-11-27 00:00:00 2022-11-27 00:00:00 Outpatient PREZAS, STEPHANIE FAY [place]E [id number] Fay Seybold 2022-11-25 10:55:00 2022-11-25 10:55:00 Outpatient LAB90 FAY MONROE [id number] Fay Seybold 2022-11-25 00:00:00 2022-11-25 00:00:00 Outpatient PREZAS, STEPHANIE FAY [facility]ROE [id number] Fay Seybold 2022-11-24 00:00:00 2022-11-24 00:00:00 Outpatient MD FAY MARTIN [id number] Fay Seybold 2022-11-19 00:00:00 2022-11-19 00:00:00 Outpatient PREZASSTEPHANIE FAY [facility]E [id number] [facility]ay [facility] 2022-11-10 14:30:00 2022-11-10 14:30:00 Outpatient SURJIT FAY [facility] [id number] [facility]ay [facility] 2022-11-10 13:30:00 2022-11-10 13:30:00 Outpatient LYDIATHOMAS MELCHOR FAY [facility] [id number] Fay Evansybold 2022-11-10 00:00:00 2022-11-10 00:00:00 Outpatient FAY MONROE [id number] Fay [facility] 2022-11-10 00:00:00 2022-11-10 00:00:00 Outpatient PREZASTEPHANIE Watson FAY [facility] [id number] [facility] 2022-11-01 00:00:00 2022-11-01 00:00:00 Outpatient ALEJANDROFIONA FAY [facility] [id number] [facility] 2022-11-01 00:00:00 2022-11-01 00:00:00 Outpatient PREZASSTEPHANIE FAY [facility]E [id number] [facility] 2022-10-05 00:00:00 2022-10-05 00:00:00 Outpatient SOILA YUSUF [id number] [facility] 2022-09-24 00:00:00 2022-09-24 00:00:00 Outpatient ALEJANDROFIONA FAY [facility]E [id number] [facility] 2022-08-06 00:00:00 2022-08-06 00:00:00 Outpatient SOILA YUSUF [id number] Fay Seybold 2022-05-20 00:00:00 2022-05-20 00:00:00 Outpatient PREZAS STEPHANIE MONROE [id number] Fay Seybold 2022-05-19 00:00:00 2022-05-19 00:00:00 Outpatient PREZAS STEPHANIE MONROE [id number] Fay Seybold 2022-04-27 00:00:00 2022-04-27 00:00:00 Outpatient FAY MONROE [id number] [facility] 2022-04-21 00:00:00 2022-04-21 00:00:00 Outpatient STEPHANIE SPAIN FAY [id number] [facility] 2022-04-13 13:30:00 2022-04-13 13:30:00 Outpatient PREZASTEPHANIE Watson FAY [id number] [facility] 2022-04-13 00:00:00 2022-04-13 00:00:00 Outpatient PARAMJITSOILA DENSON FAY [facility] [id number] [facility] 2022-03-24 00:00:00 2022-03-24 00:00:00 Outpatient STEPHANIE SPAIN FAY [id number] [facility] 2022-03-22 11:15:00 2022-03-22 11:15:00 Outpatient STEPHANIE SPAIN FAY [id number] [facility] 2022-02-24 13:30:00 2022-02-24 13:30:00 Outpatient PREZASTEPHANIE Watson FAY [id number] [facility] 2022-01-11 14:30:00 2022-01-11 14:30:00 Outpatient LAB90 FAY FAY [id number] Fay [facility] 2022-01-11 13:30:00 2022-01-11 14:15:00 Office Visit Stephanie Spain [id number] [facility] 2022-01-07 00:00:00 2022-01-07 00:00:00 Outpatient PARAMJITSOILA DENSON FAY [facility] [id number] [facility] 2022-01-06 10:30:00 2022-01-06 10:30:00 Outpatient LAB90 [facility] [id number] [facility] 2022-01-06 00:00:00 2022-01-06 00:00:00 Outpatient SOILA YUSUF [id number] [facility] 2021-12-14 00:00:2021-12-14 00:00:00 Outpatient STEPHANIE SPAIN [id number] [facility]ay [facility] 2021-12-10 00:00:00 2021-12-10 00:00:00 Outpatient STEPHANIE SPAIN [id number] [facility] 2021-12-09 00:00:00 2021-12-09 00:00:00 Outpatient STEPHANIE SPAIN [id number] [facility] 2021-12-08 11:15:00 2021-12-08 11:45:00 Office Visit Stephanie Spain [id number] [facility]ay [facility] 2021-12-08 00:00:00 2021-12-08 00:00:00 Outpatient PARAMJITSOILA FAY [id number] [facility] 2021-12-01 11:10:00 2021-12-01 11:10:00 Outpatient FAY FAY [id number] [facility]ay [facility] 2021-12-01 10:30:00 2021-12-01 10:40:00 Office Visit Vern Ferreira [id number] [facility] 2021-11-17 10:30:00 2021-11-17 10:40:00 Office Visit Vern Ferreira [id number] [facility] 2021-11-04 10:45:00 2021-11-04 10:45:00 Outpatient STEPHANIE SPAIN FAY [id number] [facility]ay [facility] 2021-10-27 10:00:00 2021-10-27 10:00:00 Outpatient VERN FERREIRA [id number] [facility] 2021-10-25 00:00:00 2021-10-25 00:00:00 Outpatient VERN FERREIRA FAY [facility] [id number] [facility] 2021-10-18 00:00:00 2021-10-18 00:00:00 Outpatient STEPHANIE SPAIN FAY [id number] [facility] 2021-10-07 11:00:00 2021-10-07 11:30:00 Office Visit Stephanie Spain [id number] [facility] 2021-10-05 11:15:00 2021-10-05 11:15:00 Outpatient SOILA YUSUF FAY [facility] [id number] [facility] 2021-10-01 00:00:00 2021-10-01 00:00:00 Outpatient PARAMJITSANDRITA DENSONFRANCES [facility] [id number] [facility] 2021-10-01 00:00:00 2021-10-01 00:00:00 Outpatient SOILA YUSUF FAY [facility] [id number] [facility] 2021-09-20 15:15:00 2021-09-20 15:15:00 Outpatient PARAMJITSANDRITA DENSONFRANCES MONROE [id number] [facility] 2021-09-17 00:00:00 2021-09-17 00:00:00 Outpatient PARAMJITSANDRITA DENSONFRANCES [facility]RO[facility] [id number] [facility]ay [facility] 2021-09-15 00:00:00 2021-09-15 00:00:00 Outpatient PARAMJITSOILA DENSON FAY [facility] [id number] [facility] 2021-08-23 11:00:00 2021-08-23 11:45:00 Office Visit ParamjitSandritafrances Montenegro Chana Correa 1.2.840.114 350.1.13.13 [id number] [id number] [facility] 2021-08-23 00:00:00 2021-08-23 00:00:00 Outpatient PARAMJITSANDRITAFRANCES MONROE [id number] [facility] 2021-07-27 00:00:00 2021-07-27 00:00:00 Outpatient SOILA YUSUF FAY MONROE [id number] [facility] 2021-07-23 00:00:00 2021-07-23 00:00:00 Outpatient SOILA YUSUF FAY MONROE [id number] [facility] 2021-07-23 00:00:00 2021-07-23 00:00:00 Outpatient SOILA YUSUF [facility] MONROE [id number] [facility]:00 2021-07-23 00:00:00 Outpatient SANDRITA YUSUFFRANCES MONROE [id number] [facility] 2021-07-22 00:00:00 2021-07-22 00:00:00 Outpatient SOILA YUSUF FAY MONROE [id number] [facility] 2021-07-19 00:00:00 2021-07-19 00:00:00 Outpatient FAY MONROE [id number] [facility] 2021-07-19 00:00:00 2021-07-19 00:00:00 Outpatient SOILA YUSUF FAY MONROE [id number] [facility] 2021-07-17 00:00:00 2021-07-17 00:00:00 Outpatient SOILA YUSUF FAY MONROE [id number] [facility] 2021-07-12 00:00:00 2021-07-12 00:00:00 Outpatient SOILA YUSUF FAY MONROE [id number] [facility] 2021-07-06 11:30:00 2021-07-06 11:30:00 Outpatient LAB90 FAY MONROE [id number] [facility] 2021-07-06 11:00:00 2021-07-06 11:15:00 Office Visit ParamjitSandritafrances Correa 1.2.840.114 350.1.13.13 1.2.7.2.686 [id number] [facility] 2021-05-31 00:00:00 2021-05-31 00:00:00 Outpatient JOHNNY DIASSEY [id number] [facility]ay [facility] 2021-05-27 13:30:00 2021-05-27 14:00:00 Office Visit Johnny Dias 1.2.840.114 350.1.13.13 1.2.7.2.686 [id number] Fay Ayala 2021-02-08 00:00:00 2021-02-08 00:00:00 Outpatient SOILA YUSUF [id number] [facility] 2021-02-02 00:00:00 2021-02-02 00:00:00 Outpatient JOHNNY DIASROMULO MONROE [id number] [facility]ay Ayala 2021-02-01 10:05:53 2021-02-01 10:35:53 Office Visit Johnny Dias 1.2.840.114 350.1.13.13 1.2.7.2.686 [id number] Fay Ayala 2021-02-01 10:05:53 2021-02-01 10:35:53 Office Visit Johnny Dias 1.2.840.114 350.1.13.13 1.2.7.2.686 [id number] 2021-01-22 09:22:01 2021-01-22 09:52:01 Office Visit Johnny Dias 1.2.840.114 350.1.13.13 1.2.7.2.686 [id number] Fay Ayala 2021-01-22 09:22:01 2021-01-22 09:52:01 Office Visit Johnny Dias 1.2.840.114 350.1.13.13 1.2.7.2.686 [id number] 2021-01-21 00:00:00 2021-01-21 00:00:00 Outpatient SOILA YUSUF [id number] [facility] 2021-01-04 09:30:00 2021-01-04 09:30:00 Outpatient PARAMJIT SOILA MONROE [id number] [facility] 2021-01-04 00:00:00 2021-01-04 00:00:00 Outpatient MD FAY MARTIN [id number] [facility] 2020-12-14 10:15:00 2020-12-14 10:15:00 Outpatient LAB90 FAY MONROE [id number] [facility] 2020-12-14 09:15:00 2020-12-14 09:15:00 Outpatient SOILA YUSUF FAY MONROE [id number] Fay [facility] 2020-12-11 10:30:00 2020-12-11 10:30:00 Outpatient SOILA YUSUF [id number] [facility] 2020-12-09 11:55:00 2020-12-09 11:55:00 Outpatient LAB90 FAY MONROE [id number] [facility] Results Test Description Test Time Test Comments Results Result Co mments Source [facility] - External Notes Date/Time Note Provider Source 2024-12-02 12:53:41 Chief Complaint Patient presents with Back Pain Patient complains of T-Spine pain for 7 days Monica Guallpa MA Monica Guallpa MA [facility] 2024-10-30 10:54:48 Chief Complaint Patient presents with Knee Pain Right knee pain that started 2 weeks ago. No swelling Claribel Scruggs MA [facility] 2024-09-25 13:02:50 Chief Complaint Patient presents with Skin Check Shayla Beth [facility] 2024-08-22 15:06:00 Chief Complaint Patient presents with Back Pain Lower, right side back pain Claribel Scruggs MA [facility] 2023-10-25 10:46:30 Chief Complaint Patient presents with OTHER [facility] 2023-09-27 11:31:45 Chief Complaint Patient presents with Skin Lesion Aurora Acosta [facility]
[2025-01-03] MEDS ORDERED: KETOROLAC 30 MG/ML INJ ONE (06:41)
[2025-01-03] MEDS ORDERED: MORPHINE 4 MG/ML SYR ONE (06:41)
[2025-01-03] MEDS ORDERED: CYCLOBENZAPRINE 10 MG TAB ONE (06:41)
--- NOTE | 2025-01-03 08:10 | EDPHYS ---
Physician Documentation [facility] Name: Sariah Castillo Age: 79 yrs Sex: Female : 1945 Arrival Date: 01/03/2025 Time: 05:49 Bed 5 Private MD: Michel Spain ED Physician Martin Garcia HPI: 01/03 06:23 This 79 yrs old Female presents to ER via Unassigned with complaints of Back sp4 Pain. 06:39 79-year-old female presents with acute onset left lower back pain with radiation to sp4 left buttock. Patient describes spasmodic lower back pain.. Historical: - Allergies: 06:37 Aspirin; lg3 - Home Meds: 06:37 Unable to obtain [Active]; lg3 - PMHx: 06:37 diabetes mellitus; High Cholesterol; Hypertensive disorder; Spasmodic Dysphonia; lg3 - PSHx: 06:37 None; lg3 - Immunization history:: Adult Immunizations up to date. - Infectious Disease History:: Denies. - Social history:: Smoking status: Patient denies any tobacco usage or history of. Patient/guardian denies using alcohol, street drugs. - Family history:: not pertinent. ROS: 06:39 Constitutional: Negative for fever, chills, and weight loss, positive for left lower sp4 spasmodic back pain 06:39 All other systems are negative, Exam: 06:39 Constitutional: This is a well developed, well nourished patient who is awake, alert, sp4 and in no acute distress. Head/Face: Normocephalic, atraumatic. Eyes: Pupils equal round and reactive to light, extra-ocular motions intact. Lids and lashes normal. Conjunctiva and sclera are not injected. Cornea within normal limits. Periorbital areas with no swelling, redness, or edema. ENT: Nares patent. No nasal discharge, no septal abnormalities noted. Tympanic membranes are normal and external auditory canals are clear. Oropharynx with no redness, swelling, or masses, exudates, or evidence of obstruction, uvula midline. Mucous membranes moist. Neck: Trachea midline, no thyromegaly or masses palpated, and no cervical lymphadenopathy. Supple, full range of motion without nuchal rigidity, or vertebral point tenderness. Chest/axilla: Normal chest wall appearance and motion. Nontender with no deformity. No lesions are appreciated. Cardiovascular: Regular rate and rhythm with a normal S1 and S2. No gallops, murmurs, or rubs. No pulse deficits. Respiratory: Lungs have equal breath sounds bilaterally, clear to auscultation and percussion. No rales, rhonchi or wheezes noted. No increased work of breathing, no retractions or nasal flaring. Abdomen/GI: Soft, with normal bowel sounds. No distension or tympany. No guarding or rebound. No evidence of tenderness throughout. Back: No spinal tenderness. No costovertebral tenderness. Positive left lower back musculature tenderness Skin: Warm, dry with normal turgor. Normal color with no rashes, no lesions, and no evidence of cellulitis. MS/ Extremity: Pulses equal, no cyanosis. Neurovascular intact. Full, normal range of motion. Neuro: Awake and alert, GCS 15, oriented to person, place, time, and situation. Cranial nerves II-XII grossly intact. Motor strength 5/5 in all extremities. Sensory grossly intact. Psych: Awake, alert, with orientation to person, place and time. Behavior, mood, and affect are within normal limits Vital Signs: 06:36 BP 113 / 72; Pulse 76; Resp 17 S; Temp 97.8(O); Pulse Ox 99% on R/A; Weight 64.41 kg lg3 (R); Height 5 ft. 0 in. (R); Pain 0/10; 07:34 BP 107 / 59; Pulse 76; Resp 18; Pulse Ox 97% ; ap3 06:36 Body Mass Index 27.73 (64.41 kg, 152.4 cm) lg3 06:36 Pain Scale: Adult lg3 [place] Coma Score: 06:39 Eye Response: spontaneous(4). Motor Response: obeys commands(6). Verbal Response: sp4 oriented(5). Total: 15. MDM: 06:39 Medical Screening Exam initiated sp4 06:42 Differential diagnosis: arthritis, Fatigue Fracture Joint Injury Scoliosis spinal sp4 injury. Data reviewed: vital signs, nurses notes, old medical records. Consideration of Admission/Observation Escalation of care including admission/observation considered. 01/03 06:31 Order name: IV Saline Lock; Complete Time: 06:40 sp4 01/03 06:31 Order name: Labs collected and sent; Complete Time: 06:49 sp4 Administered Medications: 06:42 Drug: Ketorolac IVP 30 mg IVP once Route: IVP; Site: right antecubital; lg3 07:35 Follow up: Response: No adverse reaction; Pain is decreased ap3 06:42 Drug: morphine IVP or IV 4 mg IVP once over 4 mins Route: IVP; Infused Over: 4 mins; lg3 Site: right antecubital; 07:35 Follow up: Response: No adverse reaction; Pain is decreased ap3 06:42 Drug: Cyclobenzaprine PO 10 mg PO once Route: PO; lg3 07:34 Follow up: Response: No adverse reaction; Pain is decreased ap3 Disposition Summary: 01/03/25 07:20 Discharge Ordered Notes: Location: Home sp4 Problem: new sp4 Symptoms: have improved sp4 Condition: Stable sp4 Diagnosis - Acute lumbar sprain, acute left lower lumbar spinal pain sp4 Followup: sp4 - With: Michel Spain DO - When: 7 - 10 days - Reason: Recheck today's complaints Discharge Instructions: - Discharge Summary Sheet sp4 - Low Back Sprain or Strain Rehab sp4 Forms: - Patient Portal Instructions sp4 Prescriptions: - meloxicam 15 mg Oral tablet - take 1 tablet ORAL route daily daily PRN pain; 30 tablet; Refills: 0, Product sp4 Selection Permitted - Cyclobenzaprine 10 mg Oral Tablet - take 1 tablet ORAL route every 8 hours As needed; 30 tablet; Refills: 0, sp4 Product Selection Permitted - Tramadol 50 mg Oral tablet - take 1 tablet ORAL route every 8 hours as needed; 30 tablet; Refills: 0, sp4 Product Selection Permitted Signatures: Carie Vásquez RN RN lg3 Martin Garcia MD MD sp4 Kaila Phipps RN ap3
--- NOTE | 2025-01-03 08:10 | ER ---
Nurse's Notes [facility] Name: Sariah Castillo Age: 79 yrs Sex: Female : 1945 Arrival Date: 01/03/2025 Time: 05:49 Bed 5 Private MD: Michel Spain Diagnosis: Acute lumbar sprain, acute left lower lumbar spinal pain Presentation: 01/03 06:36 Chief complaint: Patient states: lower back spasms X3 days. Coronavirus screen: Client lg3 denies travel out of the [place] in the last 14 days. At this time, the client does not indicate any symptoms associated with coronavirus-19. Ebola Screen: No symptoms or risks identified at this time. Initial Sepsis Screen: Does the patient meet any 2 criteria? No. Patient's initial sepsis screen is negative. Does the patient have a suspected source of infection? No. Patient's initial sepsis screen is negative. Risk Assessment: Do you want to hurt yourself or someone else? Patient reports no desire to harm self or others. Onset of symptoms is unknown. 06:36 Method Of Arrival: Ambulatory lg3 06:36 Acuity: JAVIER 4 lg3 Triage Assessment: 06:37 General: Appears in no apparent distress. uncomfortable, Behavior is calm, cooperative. lg3 Pain: Complains of pain in low back area Pain currently is 10 out of 10 on a pain scale. EENT: No deficits noted. No signs and/or symptoms were reported regarding the EENT system. Neuro: No deficits noted. [place] Agitation-Sedation Scale (RASS): 0 - Alert and Calm Level of Consciousness is awake, alert, obeys commands, Oriented to person, place, time, situation. Cardiovascular: No deficits noted. Denies chest pain, shortness of breath, Capillary refill < 3 seconds Clubbing of nail beds is absent JVD is absent Patient's skin is warm and dry. Respiratory: No deficits noted. Airway is patent Respiratory effort is even, unlabored, Respiratory pattern is regular, symmetrical. GI: No deficits noted. No signs and/or symptoms were reported involving the gastrointestinal system. : No signs and/or symptoms were reported regarding the genitourinary system. Derm: No deficits noted. No signs and/or symptoms reported regarding the dermatologic system. Skin is intact, is healthy with good turgor, Skin is dry, Skin is normal, Skin temperature is warm. Musculoskeletal: Circulation, motion, and sensation intact. Range of motion: intact in all extremities, Reports pain in low back area. Historical: - Allergies: 06:37 Aspirin; lg3 - Home Meds: 06:37 Unable to obtain [Active]; lg3 - PMHx: 06:37 diabetes mellitus; High Cholesterol; Hypertensive disorder; Spasmodic Dysphonia; lg3 - PSHx: 06:37 None; lg3 - Immunization history:: Adult Immunizations up to date. - Infectious Disease History:: Denies. - Social history:: Smoking status: Patient denies any tobacco usage or history of. Patient/guardian denies using alcohol, street drugs. - Family history:: not pertinent. Screenin:39 [facility] ED Fall Risk Assessment (Adult) History of falling in the last 3 months, lg3 including since admission No falls in past 3 months (0 pts) Confusion or Disorientation No (0 pts) Intoxicated or Sedated No (0 pts) Impaired Gait No (0 pts) Mobility Assist Device Used No (0 pt) Altered Elimination No (0 pt) Score/Fall Risk Level 0 - 2 = Low Risk Oriented to surroundings, Maintained a safe environment, Educated pt \T\ family on fall prevention, incl call for assistance when getting out of bed, Assessed \T\ reinforced patient's understanding of fall precautions. Abuse screen: Denies threats or abuse. Denies injuries from another. Nutritional screening: No deficits noted. Tuberculosis screening: No symptoms or risk factors identified. Assessment: 06:39 General: see triage assessment. Neuro: No deficits noted. Ceja Agitation-Sedation lg3 Scale (RASS): 0 - Alert and Calm Level of Consciousness is awake, alert, obeys commands, Oriented to person, place, time, situation. 07:10 Reassessment: Patient is alert, oriented x 3, equal unlabored respirations, skin aa5 warm/dry/pink. Patient states feeling better. Pt reports back pain has significantly improved and now she is able to rest. . Pain: Pain currently is 0 out of 10 on a pain scale. Vital Signs: 06:36 BP 113 / 72; Pulse 76; Resp 17 S; Temp 97.8(O); Pulse Ox 99% on R/A; Weight 64.41 kg lg3 (R); Height 5 ft. 0 in. (R); Pain 0/10; 07:34 BP 107 / 59; Pulse 76; Resp 18; Pulse Ox 97% ; ap3 06:36 Body Mass Index 27.73 (64.41 kg, 152.4 cm) lg3 06:36 Pain Scale: Adult lg3 [place] Coma Score: 06:39 Eye Response: spontaneous(4). Motor Response: obeys commands(6). Verbal Response: sp4 oriented(5). Total: 15. ED Course: 06:15 Patient arrived in ED. gm2 06:16 Michel Spain DO is Private Physician. gm2 06:23 Martin Garcia MD is Attending Physician. sp4 06:35 Carie Vásquez RN is Primary Nurse. lg3 06:37 Triage completed. lg3 06:37 Arm band placed on right wrist. lg3 06:39 Patient has correct armband on for positive identification. Placed in gown. Bed in low lg3 position. Call light in reach. Side rails up X 1. Client placed on continuous cardiac and pulse oximetry monitoring. NIBP monitoring applied. Door closed. Noise minimized. Warm blanket given. Pillow given. Family accompanied patient. 06:40 Inserted saline lock: 20 gauge in right antecubital area, using aseptic technique. lg3 07:19 Michel Spain DO is Referral Physician. sp4 07:35 Provided Education on: discharge instructions . ap3 07:35 No provider procedures requiring assistance completed. IV discontinued, intact, ap3 bleeding controlled, No redness/swelling at site. Pressure dressing applied. Administered Medications: 06:42 Drug: Ketorolac IVP 30 mg IVP once Route: IVP; Site: right antecubital; lg3 07:35 Follow up: Response: No adverse reaction; Pain is decreased ap3 06:42 Drug: morphine IVP or IV 4 mg IVP once over 4 mins Route: IVP; Infused Over: 4 mins; lg3 Site: right antecubital; 07:35 Follow up: Response: No adverse reaction; Pain is decreased ap3 06:42 Drug: Cyclobenzaprine PO 10 mg PO once Route: PO; lg3 07:34 Follow up: Response: No adverse reaction; Pain is decreased ap3 Medication: 06:39 VIS not applicable for this client. lg3 Outcome: 07:20 Discharge ordered by . momo 07:35 Discharged to home ambulatory, with family, ap3 07:35 Condition: good 07:35 Discharge instructions given to patient, family, Instructed on discharge instructions, follow up and referral plans. no drinking with medication, Demonstrated understanding of instructions, follow-up care, medications, Prescriptions given X 3, 07:36 Patient left the ED. ap3 Signatures: Maricruz Elliott RN RN aa5 Kaila Phipps RN RN ap3 Carie Vásquez RN RN lg3 Martin Gacria MD MD sp4 Janine Toth gm2
[2025-01-03 08:18] VITALS: TEMP 97.8
[2025-01-03 08:20] VITALS: BP 107/59; O2SAT 97
== END 2025-01-03 07:36 | disposition home or self-care (01) ==
LOC: ER 05:49
DX: S33.5XXA Sprain of ligaments of lumbar spine, initial encounter (principal)
CPT/HCPCS: 96374; 96375; 99284